=== PATIENT | male | born 1940 | race Caucasian/White ===

== ENCOUNTER 2017-06-25 11:58 | Outpatient (CLI) | payer MEDICARE ==
--- NOTE | 2017-06-25 17:04 | CT ---
CT ANGIOGRAM ABDOMEN WITH AND WITHOUT IV CONTRAST AND 3D RECONSTRUCTIONS: Date: 06-25-17 History: Follow up abdominal aortic aneurysm. Comparison: None available. FINDINGS: Vascular calcifications are seen in the visualized coronary arteries with evidence of prior CABG. Vas cular calcifications also seen in the abdominal aorta and involving the iliac arteries. There is an i nfrarenal abdominal aortic aneurysm with greatest axial dimensions of 6.5 cm AP and 5.7 cm transverse . The craniocaudal dimensions of the aneurysm is approximately 6.4 cm. There is essentric plaque with in the aneurysm. The aneurysm extends to just above the level of the aortic bifurcation and does not involving the iliac arteries. There is no evidence of an aortic dissection. There are two patent right renal arteries with single patent left renal artery. The celiac and superi or mesenteric arteries are patent with very mild narrowing at the origin of the celiac artery related to an essentric atherosclerotic calcification. There is bibasilar atelectasis. The liver, spleen, pancreas, bilateral adrenal glands and kidneys demonstrate a normal CT appearance for arterial phase of imaging. No periaortic fluid collection is seen. Degenerative changes are noted in the spine. IMPRESSION: Infrarenal abdominal aortic aneurysm with maximal AP dimension of 6.5 cm. This aneurysm extends to th e distal infrarenal abdominal aorta but does not involve the iliac arteries. Diameter of the abdomina l aorta at the level of the renal arteries is 2.8 cm. POS: CECIL
[2017-06-25] MEDS ORDERED: ISOVUE-370 76%-LOCM 1 ML ONE (17:21)
== END 2017-06-25 11:59 | disposition home or self-care (01) ==
LOC: CT 11:58
PROVIDERS: ATTEND Internal Medicine Cardiovascular Disease
DX: I71.4 Abdominal aortic aneurysm, without rupture (principal)
CPT/HCPCS: 74175

== ENCOUNTER 2017-08-14 08:48 | Day surgery (SDC) | payer MEDICARE ==
[2017-08-10 14:46] VITALS: BMI 34.0
[2017-08-14] MEDS ORDERED: Midazolam HCl 2 mg/2 ml Vial ONE (11:19)
[2017-08-14] MEDS ORDERED: Fentanyl 100 MCG/2 ML VIAL ONE (11:19)
[2017-08-14] MEDS ORDERED: Iopamidol 370 76% 100 ML VIAL ONE (11:55)
[2017-08-14] MEDS ORDERED: Iopamidol 370 76% 50 ML VIAL FS ONE (11:55)
--- NOTE | 2017-08-14 13:04 | OP ---
DATE OF PROCEDURE: 08/14/2017 PREOPERATIVE DIAGNOSIS: Abdominal aortic aneurysm with 2 large accessory renal emanating from the giuliano dy of the aneurysm. POSTOPERATIVE DIAGNOSIS: Abdominal aortic aneurysm with 2 large accessory renal emanating from the b manoj of the aneurysm. PROCEDURES: 1. Abdominal aortogram. 2. Selective superior left accessory renal artery angiogram. 3. Selective inferior left renal artery angiogram. 4. Embolization of the left superior renal artery with 4 x 8 interlock coils x2. 5. Selective embolization of the left inferior renal artery with 5 x 80 interlock coils x2. 5. ProGlide closure. 6. Ultrasound guided arterial access. TOTAL CONTRAST: 101 mL FLUORO TIME: 29.8 minutes. ANESTHESIA: 1 mg of Versed and 25 mcg of fentanyl for IV sedation. DESCRIPTION OF PROCEDURE: After operative consent was obtained, the patient was brought to the veterinary laboratory technician and placed in supine position on the veterinary laboratory technician table. Appropriate anesthetic monitor was placed. IV sedation was begun. The right groin was prepped and draped in the usual sterile fashion. Using ultrasound guidance, the area over the femoral artery was anesthetized with 1% lidocaine. Percutaneo us access to the common femoral artery was obtained using ultrasound guidance. A 5 [place]orese sheath was placed. The pigtail catheter was placed in the abdominal aorta. Multiple plane views of the abdomi nal aorta were performed using both hand injected technique and a power injector. Once the two acces efrain renal arteries were localized and an appropriate angled view of the x-ray had obtained, the pigt ail catheter was removed over an angled Glidewire. A COSTA catheter was then used to cannulate the chaves perior accessory renal artery. The Glidewire past into the renal artery. The COSTA catheter was exch anged for a Jewett catheter. Hand injected arteriogram was performed through the Jewett and confir anibal the intraluminal location. A renegade microcatheter was then passed into the Jewett catheter a nd through that two 4 x 80 interlock coils were placed. Hand injected arteriogram performed good pos itioning. The angled Glidewire was then replaced. The COSTA catheter was then used to cannulate the inferior accessory renal artery. Similarly, the similar to the superior accessory renal, the angled Glidewire was passed deep into the accessory renal artery. Jewett catheter was then placed and hand injected arteriogram performed confirming intraluminal location. Microcatheter was then placed and through the microcatheter two 5 x 80 interlock coils were placed. Followup aortogram showed good pos itioning of both the coils with the superior accessory renal already being thrombosed. The Bentson g uidewire was then replaced and ProGlide was deployed and good hemostasis. The patient was transferre d to the recovery room, will be kept for two hours prior to being discharged home today. The aneurys m will need to be repaired in the near future.
== END 2017-08-14 16:15 | disposition home or self-care (01) ==
LOC: SDC 08:48
PROVIDERS: ATTEND Thoracic Surgery (Cardiothoracic Vascular Surgery)
DX: I71.4 Abdominal aortic aneurysm, without rupture (principal); I25.10 Atherosclerotic heart disease of native coronary artery without angina pectoris; I10 Essential (primary) hypertension; E78.2 Mixed hyperlipidemia; K21.9 Gastro-esophageal reflux disease without esophagitis; Z88.8 Allergy status to other drugs, medicaments and biological substances; Z95.1 Presence of aortocoronary bypass graft; Z82.0 Family history of epilepsy and other diseases of the nervous system; Z82.49 Family history of ischemic heart disease and other diseases of the circulatory system
CPT/HCPCS: 37242; C1725; C1760; C1769 ×2; 61626; J1644; J2250; J3010

== ENCOUNTER 2017-08-30 05:47 | Inpatient (IN) | payer MEDICARE ==
[2017-08-29 10:28] VITALS: BMI 34.0
[2017-08-30] MEDS ORDERED: Midazolam HCl 2 mg/2 ml Vial ONE ×2 (06:25→07:12)
[2017-08-30] MEDS ORDERED: Fentanyl 100 MCG/2 ML VIAL ONE (06:25)
[2017-08-30] MEDS ORDERED: Protamine Sulfate 50 MG/5 ML VIAL ONE ×2 (06:39→09:13)
[2017-08-30] MEDS ORDERED: Heparin 10,000 UNITS/1 ML VIAL ONE (06:39)
[2017-08-30 06:58] LABS: Hemoglobin 12.6 g/dL (14.0-18.0); Mean Corpuscular HGB CONC 34.2 g/dL (32.0-36.0); Mean Corpuscular Hemoglobin 32.6 pg (27.0-31.0); Mean Corpuscular Volume 95.5 fl (80.0-94.0); Mean Platelet Volume 6.9 fL (7.4-10.4); Platelet Count 205 thou/uL (130-400); RBC Distribution Width 12.3 % (11.5-14.5); Red Blood Cell (RBC) Count 3.87 mill/uL (4.70-6.10)
[2017-08-30] MEDS ORDERED: CEFAZOLIN/Water 2 GM/20 ML SYRINGE ONE (07:29)
[2017-08-30 07:32] LABS: Anion Gap 11 mmol/L (10-20); BUN (Urea Nitrogen) 26 mg/dL (8.4-25.7); Calc. Creatinine Clearance 121 mL/min (70-130); Calcium 8.9 mg/dL (7.8-10.44); Carbon Dioxide 27 mmol/L (23-31); Chloride 108 mmol/L (98-107); Estimated GFR-MDRD 85; Glucose 124 mg/dL (83-110); Potassium 3.7 mmol/L (3.5-5.1); Sodium 142 mmol/L (136-145)
[2017-08-30] MEDS ORDERED: Morphine Sulfate 2 MG/ML SYRINGE SLOW IVP PRN (08:47)
[2017-08-30] MEDS ORDERED: Promethazine HCl 25 MG/ML VIAL SLOW IVP PRN (08:47)
--- NOTE | 2017-08-30 11:17 | OP ---
DATE OF PROCEDURE: 08/30/2017 PREOPERATIVE DIAGNOSIS: Abdominal aortic aneurysm. POSTOPERATIVE DIAGNOSIS: Abdominal aortic aneurysm. PROCEDURE: 1. Preclose technique using bilateral crossed Proglides x2. 2. Ultrasound guided percutaneous access. 3. Endovascular aneurysm repair with Medtronic Endurant II system 32 x 16 x 166 bifurcation graft through the left groin 16 x 16 x 93 right iliac extension 16 x 16 x 82 right iliac extension SURGEON: Dr. Demian Mejia and Dr. Clement Salomon ANESTHESIA: General endotracheal. ESTIMATED BLOOD LOSS: Less than 100 mL. TOTAL CONTRAST: 90 mL. TOTAL FLUOROSCOPY TIME: 11 minutes 25 seconds. DESCRIPTION OF PROCEDURE: After operative consent was obtained, the patient was brought to the operating room and placed in the supine position on the operating room table. Appropriate anesthetic monitor was placed and general endotracheal anesthesia induced. Groins were prepped and draped in usual sterile fashion. Using ultrasound guidance, percutaneous access to the common femoral arteries was obtained. A 5 Malian sheath was placed over a Bentson wire. A crossed ProGlide closure sutures were then placed and clamped bilaterally. The patient was given 7500 units of heparin followed by 2500 units later in the case to maintain an ACT of over 230. On the left, the Bentson guidewire was exchanged for a Lunderquist guidewire. On the right, the Bentson guidewire was exchanged for a Lunderquist guidewire and a 12-Malian sheath placed in the aneurysm itself. The Contra catheter was then placed in the upper abdominal aorta. Aortogram was performed illuminating the aorta and renals. Our graft was selected, which was a 32 x 16 x 166. This was loaded on the left side of the Lunderquist graft, taken up to the level of the renal arteries and deployment begun. A second magnified aortogram was performed illuminating the renal arteries. The graft was positioned appropriately just at the renal bifurcation and deployed down to the short gate. The Contra catheter was withdrawn back into the sheath and the sheath brought back underneath the short gate. Contra catheter and Lunderquist wire were used to cannulate the short gate. Lunderquist was brought up into the upper abdominal aorta. The Contra catheter was brought into the graft itself and twirled. It twirled freely. Contra catheter was then used to measure with hand injected right iliac angiogram. The iliac bifurcation was noted and marked. A 16 x 16 x 93 extension graft was selected and deployed in the right iliac. This ended up approximately 2 cm short of our bandar and we extended it with a second 16 x 16 graft. Reliant balloons were used to fully deploy the graft for its full length. Aortogram was again performed showing no evidence of type 1 endoleak. The graft material itself was intact. There was late type 2 endoleak from lumbar arteries. The previously embolized accessory renals were thrombosed. Lunderquist guidewires were exchanged for Bentson guidewires. Sheaths were removed and Proglides deployed with good hemostasis. Heparin was reversed with 75 mg of Protamine. Dermabond was applied to the skin and the patient was awakened, extubated, and transferred to recovery room in stable condition. FABIENNE
[2017-08-30] MEDS ORDERED: HYDROcodone/Acetaminophen 5/325 mg Tablet PO PRN ×2 (12:33)
[2017-08-30] MEDS ORDERED: Ondansetron HCl/PF 4 MG/2 ML Vial IVP PRN (12:33)
[2017-08-30] MEDS ORDERED: Amlodipine 10 MG TAB PO SCH ×2 (12:33→21:00)
[2017-08-30] MEDS ORDERED: Carvedilol 6.25 MG TAB PO SCH ×2 (12:33→21:00)
[2017-08-30] MEDS ORDERED: Promethazine HCl 25 MG/ML VIAL IM PRN (12:33)
[2017-08-30] MEDS ORDERED: Fentanyl 100 MCG/2 ML VIAL SLOW IVP PRN ×2 (12:33)
[2017-08-30] MEDS ORDERED: hydrALAZINE 20 MG/ML VIAL SLOW IVP PRN (12:33)
[2017-08-30] MEDS ORDERED: Acetaminophen 325 MG TAB PO PRN (12:33)
[2017-08-30] MEDS ORDERED: Phenylephrine 10 MG/NS 250 ML 250 ML IVPB PRN (12:33)
[2017-08-30] MEDS: Sodium Chloride 0.9% 1,000 ML IV SCH ×2 (12:45→21:51)
[2017-08-30] MEDS ORDERED: Dexamethasone 20 MG/5 ML VIAL ONE (15:10)
[2017-08-30] MEDS ORDERED: Ondansetron HCl/PF 4 MG/2 ML Vial ONE (15:10)
[2017-08-30] MEDS ORDERED: Glycopyrrolate 0.2 MG/ML 5 ML SYRINGE ONE (15:10)
[2017-08-30] MEDS ORDERED: Propofol 200 MG/20 ML VIAL ONE (15:10)
[2017-08-30] MEDS ORDERED: Lidocaine 1% PF 5 ML VIAL ONE (15:10)
[2017-08-30] MEDS ORDERED: Heparin 10,000 UNITS/ 10 ML VIAL ONE (15:10)
[2017-08-30] MEDS ORDERED: Protamine Sulfate 250 MG/25 ML VIAL ONE (15:10)
[2017-08-30] MEDS ORDERED: ePHEDrine/0.9% NaCl/PF SYRINGE 50 mg/10 ml ONE (15:10)
[2017-08-30] MEDS: CEFAZOLIN/Water 2 GM/20 ML SYRINGE SLOW IVP SCH ×2 (15:29→23:55)
[2017-08-30] MEDS ORDERED: Atorvastatin Calcium 40 MG TAB PO SCH (21:00)
[2017-08-30] MEDS ORDERED: Ubidecarenone 50 MG CAP PO SCH (21:00)
[2017-08-30] MEDS: Fish Oil 1,000 MG CAP PO SCH (21:19)
[2017-08-30] MEDS: Folic Acid 1 MG TAB PO SCH (21:20)
[2017-08-30] MEDS: Lisinopril 20 MG TAB PO SCH (21:20)
[2017-08-30 21:21] VITALS: BP 138/63
[2017-08-31 05:57] LABS: #Lymphocytes 0.9 thou/uL (1.20-3.40); #Monocytes 0.7 thou/uL (0.11-0.59); #Neutrophils 10.3 thou/uL (1.40-6.50); %Basophils 0.1 % (0.0-1.0); %Eosinophils 0.3 % (0.0-10.0); %Lymphocytes 7.8 % (21.0-51.0); %Monocytes 5.7 % (0.0-10.0); %Neutrophils 86.1 % (42.0-75.0); Hemoglobin 12.2 g/dL (14.0-18.0); Mean Corpuscular HGB CONC 33.6 g/dL (32.0-36.0); Mean Corpuscular Hemoglobin 31.8 pg (27.0-31.0); Mean Corpuscular Volume 94.6 fl (80.0-94.0); Mean Platelet Volume 7.1 fL (7.4-10.4); Platelet Count 176 thou/uL (130-400); RBC Distribution Width 12.1 % (11.5-14.5); Red Blood Cell (RBC) Count 3.84 mill/uL (4.70-6.10); White Blood Cell (WBC) Count 11.9 thou/uL (4.8-10.8)
[2017-08-31 06:29] LABS: Anion Gap 12 mmol/L (10-20); BUN (Urea Nitrogen) 18 mg/dL (8.4-25.7); Calc. Creatinine Clearance 137 mL/min (70-130); Carbon Dioxide 23 mmol/L (23-31); Chloride 106 mmol/L (98-107); Estimated GFR-MDRD Greater than 90; Glucose 140 mg/dL (83-110); Potassium 3.9 mmol/L (3.5-5.1); Sodium 137 mmol/L (136-145)
--- NOTE | 2017-08-31 07:00 | DIS ---
DATE OF ADMISSION: 08/30/2017 DATE OF DISCHARGE: 08/31/2017 DIAGNOSIS: Abdominal aortic aneurysm. PROCEDURE: Endovascular repair of abdominal aortic aneurysm. DESCRIPTION OF HOSPITAL STAY: Mr. Whitmore underwent elective repair of his aneurysm. He has done w ell and is being discharged to home to follow up with me in 2 weeks. DISCHARGE MEDICATIONS: Unchanged.
[2017-08-31 07:43] VITALS: TEMP 97.9
[2017-08-31] MEDS: Folic Acid 1 MG TAB PO SCH (07:50)
[2017-08-31] MEDS: Fish Oil 1,000 MG CAP PO SCH (07:50)
[2017-08-31] MEDS: Lisinopril 20 MG TAB PO SCH (07:50)
[2017-08-31] MEDS: CEFAZOLIN/Water 2 GM/20 ML SYRINGE SLOW IVP SCH (07:51)
[2017-08-31] MEDS ORDERED: Aspirin 81 mg Enteric Coated Tablet PO SCH (09:00)
[2017-08-31] MEDS ORDERED: Furosemide 40 MG TAB PO SCH (09:00)
[2017-08-31] MEDS ORDERED: Amlodipine 5 MG TAB PO SCH (09:00)
[2017-08-31] MEDS ORDERED: Carvedilol 6.25 MG TAB PO SCH (09:00)
== END 2017-08-31 10:38 | disposition home or self-care (01) | DRG 269 ==
LOC: SURG A 05:47 → CCU 12:00
PROVIDERS: ADMIT Thoracic Surgery (Cardiothoracic Vascular Surgery); ATTEND Thoracic Surgery (Cardiothoracic Vascular Surgery)
PROC: 04V03D6 (ICD-10-PCS; principal; 2017-08-30)
DX: I71.4 Abdominal aortic aneurysm, without rupture (principal); E78.00 Pure hypercholesterolemia, unspecified; I10 Essential (primary) hypertension; K21.9 Gastro-esophageal reflux disease without esophagitis; Z95.1 Presence of aortocoronary bypass graft; I25.10 Atherosclerotic heart disease of native coronary artery without angina pectoris
CPT/HCPCS: 36415; 76001; 80048; 85025; 85027; 86850; 86870; 86900; 86901; 86922; C1726; C1760; C1769; C1894; J0360; J1100; J1642; J1644; J2001; J2250; J2405; J2704; J2720; J3010

== ENCOUNTER 2017-09-23 12:00 | Inpatient (IN) | payer MEDICARE ==
[2017-09-23 13:39] LABS: #Eosinphils 0.4 thou/uL (0.0-0.7); #Lymphocytes 1.7 thou/uL (1.20-3.40); #Monocytes 0.7 thou/uL (0.11-0.59); %Basophils 0.7 % (0.0-1.0); %Lymphocytes 24.5 % (21.0-51.0); %Monocytes 10.1 % (0.0-10.0); %Neutrophils 58.7 % (42.0-75.0); Hemoglobin 13.8 g/dL (14.0-18.0); Mean Corpuscular HGB CONC 34.8 g/dL (32.0-36.0); Mean Corpuscular Hemoglobin 32.4 pg (27.0-31.0); Mean Corpuscular Volume 93.1 fl (80.0-94.0); Mean Platelet Volume 7.2 fL (7.4-10.4); Platelet Count 205 thou/uL (130-400); RBC Distribution Width 12.4 % (11.5-14.5); Red Blood Cell (RBC) Count 4.27 mill/uL (4.70-6.10); White Blood Cell (WBC) Count 6.8 thou/uL (4.8-10.8)
[2017-09-23 14:01] LABS: ALT (SGPT) 15 U/L (8-55); AST (SGOT) 15 U/L (5-34); Albumin 3.9 g/dL (3.4-4.8); Alkaline Phosphatase 95 U/L (40-150); Anion Gap 12 mmol/L (10-20); BUN (Urea Nitrogen) 29 mg/dL (8.4-25.7); Calc. Creatinine Clearance 0 mL/min (70-130); Calcium 8.9 mg/dL (7.8-10.44); Carbon Dioxide 26 mmol/L (23-31); Chloride 98 mmol/L (98-107); Estimated GFR-MDRD 80; Globulin 2.5 g/dL (2.4-3.5); Glucose 127 mg/dL (83-110); Potassium 3.7 mmol/L (3.5-5.1); Protein, Total 6.4 g/dL (5.8-8.1); Sodium 132 mmol/L (136-145)
[2017-09-23 14:04] LABS: Troponin I 0.377 ng/mL (< 0.028)
--- NOTE | 2017-09-23 14:17 | RAD ---
PORTABLE CHEST: Date: 09/23/17 PROVIDED CLINICAL HISTORY: Atrial flutter. Dyspnea. FINDINGS: No comparisons. Cardiac silhouette appears enlarged, which may be at least partially on the basis of portable techniq ue. Median sternotomy changes are seen. No focal consolidation, pleural fluid, or pneumothorax appare nt. IMPRESSION: No evidence for an acute cardiopulmonary process. POS: [facility]
[2017-09-23] MEDS ORDERED: Carvedilol 6.25 MG TAB PO SCH ×2 (16:15→21:00)
[2017-09-23] MEDS ORDERED: Amlodipine 10 MG TAB PO SCH (16:15)
[2017-09-23] MEDS ORDERED: Acetaminophen 325 MG TAB PO PRN (17:04)
[2017-09-23] MEDS ORDERED: Ondansetron ODT 4 MG TAB PO PRN (17:04)
[2017-09-23 17:27] VITALS: BMI 34.4
--- NOTE | 2017-09-23 17:33 | PDOC.FPRHP ---
- History of Present Illness Chief Complaint: palpitations History of Present Illness: Patient comes in after noticing his HR was elevated last night and then had not resolved this morning. He has pertinent history of 2 CABG procedure (latest 16 years ago), Triple AAA repair 08/30/17, HTN, and LUÍS. Patient denies any chest pain. He states he was feeling weak 3 days ago so he held his lasix since that time. He denies SOB or cough. ED Course: CXR shows cardiomegaly, CT-PE protocol shows no PE trop 0.15 -> .37 Patient recieved 2 doses of adenosine at outside ED, had not converted, upon presentation to this ED patient was tachycardic but then spontaneously converted to rhythm in the 70s - Allergies/Adverse Reactions Allergies Allergy/AdvReac Type Severity Reaction Status Date / Time hydrochlorothiazide Allergy Verified 08/30/17 07:00 - Home Medications Medication Instructions Recorded Confirmed Type Amlodipine [Norvasc] 10 mg PO QPM 08/10/17 09/23/17 History Ascorbic Acid [Vitamin C] 500 mg PO BID 08/10/17 09/23/17 History Aspirin [Aspirin EC] 81 mg PO QAM 08/10/17 09/23/17 History Atorvastatin Calcium [Lipitor] 1 tab PO QPM 08/10/17 09/23/17 History Carvedilol [Coreg] 1 tab PO QAM 08/10/17 09/23/17 History Cetirizine HCl [Zyrtec] 10 mg PO QAM 08/10/17 09/23/17 History Cholecalciferol (Vitamin D3) 1,000 unit PO BID 08/10/17 09/23/17 History [Vitamin D] Clopidogrel Bisulfate [Clopidogrel] 75 mg PO QPM 08/10/17 09/23/17 History Fish Oil/Borage/Flax/Om3,6,9 1 3 cap PO BID 08/10/17 09/23/17 History [[place] 3-6-9 1,200 mg Softgel] Folic Acid 0.8 mg PO BID 08/10/17 09/23/17 History Furosemide 40 mg PO QAM 08/10/17 09/23/17 History Isosorbide Mononitrate [Imdur ER] 30 mg PO QAM 08/10/17 09/23/17 History Lisinopril 20 mg PO BID 08/10/17 09/23/17 History Naproxen Sodium [Aleve] 220 mg PO BID 08/10/17 09/23/17 History Ubidecarenone [Co Q-10] 100 mg PO QPM 08/10/17 09/23/17 History Amlodipine [Norvasc] 5 mg PO QAM 09/23/17 09/23/17 History Carvedilol [Coreg] 2 tab PO QPM 09/23/17 09/23/17 History Docusate [Colace] 2 cap PO DAILY PRN 09/23/17 09/23/17 History Fluticasone Propionate [Flonase 2 spray EA NARE DAILY 09/23/17 09/23/17 History Nasal Angie] - History PMHx: HTN, CAD, CABG x 2 (latest 16 yrs ago), LUÍS PSHx: AAA repair 08/30/17 FHx: mother bypass Social: chewing tobacco 40 years, no alcohol, no drugs - Review of Systems General: denies: fever/chills, night sweats Eyes: denies: eye pain, vision changes ENT: denies: nasal congestion, rhinorrhea Respiratory: denies: cough, shortness of breath Cardiovascular: reports: palpitation, edema. denies: chest pain Gastrointestinal: denies: nausea, vomiting, diarrhea Genitourinary: denies: dysuria, polyuria Skin: denies: rashes, itching Musculoskeletal: denies: pain, tenderness Neurological: denies: numbness, weakness Psychological: denies: anxiety, depression - Vital signs BP: [111/81] HR: [122 on presentation, 73 on admit] RR: [12] Tmax: [97.5] Pox: [95]% on [ra] Wt: [121kg] - Physical Exam Constitutional: NAD, awake, alert and oriented HEENT: normocephalic and atraumatic, PERRLA, MMM Neck: supple, FROM Heart: normal S1/S2 -Heart: irregularly irregular rhythm, 2/6 systolic murmur Lungs: good air movement -Lungs: no distress, mild decreased breath sounds at the bases Abdomen: soft, non-tender, bowel sounds present Musculoskeletal: normal structure, ROM grossly normal Neurological: no focal deficit, normal sensation Skin: no rash/lesions, capillary refill <2 seconds Heme/Lymphatic: no unusual bruising or bleeding Psychiatric: normal mood and affect, good judgment and insight FMR H&P: Results - Labs Result Diagrams: 09/23/17 13:23 09/23/17 13:23 Lab results: WBC 6.8 thou/uL (4.8-10.8) 09/23/17 13:23 Hgb 13.8 g/dL (14.0-18.0) L 09/23/17 13:23 Hct 39.7 % (42.0-52.0) L 09/23/17 13:23 MCV 93.1 fl (80.0-94.0) 09/23/17 13:23 Plt Count 205 thou/uL (130-400) 09/23/17 13:23 Neutrophils % 58.7 % (42.0-75.0) 09/23/17 13:23 Sodium 132 mmol/L (136-145) L 09/23/17 13:23 Potassium 3.7 mmol/L (3.5-5.1) 09/23/17 13:23 Chloride 98 mmol/L (98-107) 09/23/17 13:23 Carbon Dioxide 26 mmol/L (23-31) 09/23/17 13:23 BUN 29 mg/dL (8.4-25.7) H 09/23/17 13:23 Creatinine 0.92 mg/dL (0.6-1.3) 09/23/17 13:23 Glucose 127 mg/dL (83-110) H 09/23/17 13:23 Calcium 8.9 mg/dL (7.8-10.44) 09/23/17 13:23 Total Bilirubin 1.0 mg/dL (0.2-1.2) 09/23/17 13:23 AST 15 U/L (5-34) 09/23/17 13:23 ALT 15 U/L (8-55) 09/23/17 13:23 Alkaline Phosphatase 95 U/L (40-150) 09/23/17 13:23 B-Natriuretic Peptide 164.4 pg/mL (0-100) H 09/23/17 13:23 Serum Total Protein 6.4 g/dL (5.8-8.1) 09/23/17 13:23 Albumin 3.9 g/dL (3.4-4.8) 09/23/17 13:23 - EKG Interpretation EKG: EKG is abnormal. Shows A fib. EKG was discussed with Dr. Cazares. FMR H&P: A/P - Problem List (1) Elevated troponin Current Visit: Yes Status: Acute Code(s): R74.8 - ABNORMAL LEVELS OF OTHER SERUM ENZYMES (2) HTN (hypertension) Current Visit: Yes Status: Acute Code(s): I10 - ESSENTIAL (PRIMARY) HYPERTENSION (3) AAA (abdominal aortic aneurysm) Current Visit: Yes Status: Acute Code(s): I71.4 - ABDOMINAL AORTIC ANEURYSM , WITHOUT RUPTURE (4) LUÍS (obstructive sleep apnea) Current Visit: Yes Status: Acute Code(s): G47.33 - OBSTRUCTIVE SLEEP APNEA ( ADULT) (PEDIATRIC) (5) Tachycardia Current Visit: Yes Status: Acute Code(s): R00.0 - TACHYCARDIA, UNSPECIFIED (6) Abnormal EKG Current Visit: Yes Status: Acute Code(s): R94.31 - ABNORMAL ELECTROCARDIOGRAM [ECG] [EKG] - Plan # Tachycardia - 2 doses Adenosine OSH - rate in 70s on admit - Tele - carvedilol 6.125 - Dr. Cazares consulted, recs appreciated - consider stress test, echo in the AM # Elevated troponin - 0.15 -> 0.38 - trend - CTA neg for PE at OSH # HTN - home meds # HLD - high intesity statin # recent AAA repair - cautious with anticoagulation # LUÍS - cpap at night #PPx - lovenox, scds # Code - full FMR H&P: Upper Level - Pertinent history 77yo CM with pmhx CAD s/p 4v CABG x 2, AAA w/o rupture s/p repair 1 mo prior, HTN, HLD & Atherosclerosis who presents with 12+ hr history of palpitations & heart racing. Pt was at granddaughter's wedding last night, got back to hotel and felt heart beating fast, checked pulse and found to be 117. Went to bed and woke up in the morning with persistent symptoms and went to [facility] [place] ED. Found to be in Aflutter to rate 120s, given adenosine x 2 and IVF without conversion; however upon arrival to ED at [facility] converted to rate controlled Afib spontaneously (rate in 70s). Pt has h/o paroxysmal Afib in 2013 after ankle surgery, otherwise no recent Afib. Does endorse mild SOB with palpitations, but have since resolved. Endorses medication compliance and otherwise no symptoms. Cards- Dr. Thomas CV Surg- Dr. Salomon - Pertinent findings PE-resting comfortably with NAD irregularly irregular rhythm (rate in 70s), distant heart sounds with 2/6 SRINIVASA. Lungs mostly clear aside from faint crackles in left lung base. Trace LE edema (improved from baseline per family) Labs- trop in [place]- 0.17 --> 0.377 here BNP 114 Tele- irregularly irregular rhythm with rate 71 CXR- cardiomegaly, with blunted costophrenic angles. post-sternotomy changes noted. CTA in [place] neg - Plan Date/Time: 09/23/17 1730 77 yo CM with AAA s/p Repair, CAD s/p CABG x 2, HTN, HLD p/w-- 1) New onset Aflutter- resolved, now afib with rate in 70s, however abn EKG with concerns for possible delta wave in precordial leads. consulted Dr. Cazares to acutely see pt. NAD and stable currently. Therapeutic lovenox for anticoagulation and monitor on tele. Continue home meds and will discuss tx with cards. Order echo. Trend CE's, check TSH & Mag. H/o recent stress per pt, therefore call Dr. Thomas office in AM for results. 2) CAD s/p CABG- maximize med therapy, consult cards for stress vs cath. 3) HTN- stable, home meds 4) HLD- cont high intensity statin 5) AAA s/p repair- inform CV surgery of pts inpt status. I, [Kemi Bartholomew], have evaluated this patient and agree with findings/plan as outlined by intern product marketing manager resident. Pertinent changes/additions are listed here. Attending Addendum - Attending Addendum Date/Time: 09/23/172032 I personally evaluated the patient and discussed the management with Dr. Lynn and Puma. I agree with the History, Examination, Assessment and Plan documented above with any addition or exceptions noted below. LBBB, unable to compare to any previous. Rising troponins. Chest pain free. Await cardiology recommendations. Maximize medical therapy.
[2017-09-23] MEDS ORDERED: Enoxaparin Sodium 120 MG/0.8 ML SYRINGE SC SCH (17:45)
[2017-09-23 18:20] LABS: CKMB 11.6 ng/mL (0-6.6); Troponin I 0.603 ng/mL (< 0.028)
[2017-09-23 21:34] LABS: CKMB 9.2 ng/mL (0-6.6); Troponin I 0.671 ng/mL (< 0.028)
--- NOTE | 2017-09-23 21:36 | CON ---
DATE OF CONSULTATION: 09/23/2017 REASON FOR CONSULTATION: Atrial fibrillation. HISTORY OF PRESENT ILLNESS: Mr. Whitmore is a very pleasant 77-year-old gentleman, who is a patient of Dr. Samuel Thomas. He recently presented with palpitations. He states he was in normal state of heal th. When his monitor noticed, his heart rate was in the 120s. He did have associated palpitations. No chest pain, pressure, or other associated symptoms. He was seen and evaluated in the emergency r oom where he was found to be in atrial fibrillation. Upon my evaluation, he was back in sinus rhythm . PAST MEDICAL AND SURGICAL HISTORY: Hypertension, CAD, status post bypass surgery, recent aortic aneu rysm repair percutaneously. CURRENT HOME MEDICATIONS: Amlodipine, aspirin, carvedilol, fish oil, folic acid, Lasix, isosorbide, atorvastatin, lisinopril and Plavix. REVIEW OF SYSTEMS: Ten-point review of systems is reviewed and as above, otherwise negative. PHYSICAL EXAMINATION: GENERAL: Patient is a pleasant male who is in no acute distress. The patient appears his stated age . VITAL SIGNS: Blood pressure 146/85, pulse 74 and temperature 97.8. NEUROLOGIC: The patient is alert and oriented x3 with no focal neurologic deficits. HEENT: Sclerae without icterus. Mouth has moist mucous membranes with normal pallor. NECK: No JVD. Carotid upstroke brisk. No bruits bilaterally. LUNGS: Clear to auscultation with unlabored respirations. BACK: No scoliosis or kyphosis. CARDIAC: Regular rate and rhythm with normal S1 and S2. No S3 or S4 noted. No significant rubs, mu rmurs, thrills, or gallops noted throughout the precordium. PMI is not displaced. There is no cecille ternal heave. ABDOMEN: Soft, nontender, nondistended. No peritoneal signs present. No hepatosplenomegaly. No ab normal striae. EXTREMITIES: 2+ femoral and 2+ dorsalis pedis pulses. No cyanosis, clubbing, or edema. SKIN: No gross abnormalities. PERTINENT LABORATORY DATA: Hemoglobin 13.8. BNP 164 and troponin 0.3. IMPRESSION: 1. Atrial fibrillation. 2. Status post percutaneous endovascular repair of abdominal aortic aneurysm. 3. Coronary artery disease. 4. Status post bypass surgery. 5. Elevated troponin. RECOMMENDATIONS: Mr. Whitmore had no current symptoms suggesting angina. He did undergo abdominal a ortic aneurysm recently. He has converted back to sinus rhythm. At this point, would recommend Mult aq. His last echo dated 2015 suggested LVEF of 50% to 55%. Would recommend repeating his echo. Enma quiñonez, I have no recommendations.
[2017-09-23] MEDS: Apixaban 5 MG TAB PO SCH (21:40)
[2017-09-23] MEDS: Atorvastatin Calcium 40 MG TAB PO SCH (21:41)
[2017-09-23] MEDS: Amlodipine 10 MG TAB PO SCH (21:41)
[2017-09-24 04:12] LABS: #Basophils 0.1 thou/uL (0.0-0.2); #Eosinphils 0.4 thou/uL (0.0-0.7); #Lymphocytes 1.8 thou/uL (1.20-3.40); #Monocytes 0.8 thou/uL (0.11-0.59); #Neutrophils 4.3 thou/uL (1.40-6.50); %Basophils 0.8 % (0.0-1.0); %Eosinophils 5.7 % (0.0-10.0); %Lymphocytes 24.5 % (21.0-51.0); %Monocytes 10.2 % (0.0-10.0); %Neutrophils 58.8 % (42.0-75.0); Hemoglobin 13.2 g/dL (14.0-18.0); Mean Corpuscular HGB CONC 34.7 g/dL (32.0-36.0); Mean Corpuscular Hemoglobin 31.4 pg (27.0-31.0); Mean Corpuscular Volume 90.6 fl (80.0-94.0); Mean Platelet Volume 7.1 fL (7.4-10.4); Platelet Count 207 thou/uL (130-400); RBC Distribution Width 12.3 % (11.5-14.5); White Blood Cell (WBC) Count 7.4 thou/uL (4.8-10.8)
[2017-09-24 04:28] LABS: Anion Gap 12 mmol/L (10-20); BUN (Urea Nitrogen) 25 mg/dL (8.4-25.7); Calc. Creatinine Clearance 118 mL/min (70-130); Calcium 9.3 mg/dL (7.8-10.44); Carbon Dioxide 29 mmol/L (23-31); Chloride 95 mmol/L (98-107); Estimated GFR-MDRD 82; Glucose 125 mg/dL (83-110); Potassium 3.8 mmol/L (3.5-5.1); Sodium 132 mmol/L (136-145)
[2017-09-24 04:36] LABS: CKMB 8.3 ng/mL (0-6.6); Troponin I 0.785 ng/mL (< 0.028)
[2017-09-24 07:38] LABS: CKMB 6.5 ng/mL (0-6.6)
[2017-09-24 07:40] LABS: Troponin I 0.616 ng/mL (< 0.028)
[2017-09-24] MEDS: Aspirin 81 mg Enteric Coated Tablet PO SCH (08:19)
[2017-09-24] MEDS: Lisinopril 20 MG TAB PO SCH ×2 (08:20→20:34)
[2017-09-24] MEDS: Furosemide 40 MG TAB PO SCH (08:20)
[2017-09-24] MEDS: Amlodipine 5 MG TAB PO SCH (08:20)
[2017-09-24] MEDS: Carvedilol 6.25 MG TAB PO SCH ×2 (08:20→16:43)
--- NOTE | 2017-09-24 08:50 | PDOC.FM ---
- Subjective Subjective: This morning the patient denies any chest pain, sob, or diaphoresis. He denies any episodes of palpitations overnight. There were no events noted on tele. Patient states he ate supper without any issues. - Objective Vital Signs & Weight: Vital Signs (12 hours) Temp Pulse Resp BP BP Pulse Ox 09/24/17 08:20 66 09/24/17 08:13 97.7 F 66 16 152/79 H 95 09/24/17 05:50 97.6 F 68 19 149/85 H 95 09/24/17 00:00 98.1 F 63 18 127/74 94 L 09/23/17 21:41 68 142/80 H 09/23/17 21:40 98.1 F 68 18 142/80 H 97 Weight Weight 121.472 kg I&O: 09/23/17 09/24/17 09/25/17 06:59 06:59 06:59 Intake Total 720 Output Total 900 Balance -180 Result Diagrams: 09/24/17 03:03 09/24/17 03:03 <Amos Lynn - Last Filed: 09/24/17 08:48> - Objective Vital Signs & Weight: Vital Signs (12 hours) Temp Pulse Resp BP Pulse Ox 09/24/17 08:20 66 09/24/17 08:13 97.7 F 66 16 152/79 H 95 09/24/17 05:50 97.6 F 68 19 149/85 H 95 09/24/17 00:00 98.1 F 63 18 127/74 94 L Weight Weight 121.472 kg I&O: 09/23/17 09/24/17 09/25/17 06:59 06:59 06:59 Intake Total 720 Output Total 900 Balance -180 Result Diagrams: 09/24/17 03:03 09/24/17 03:03 <Curt Lorenzo - Last Filed: 09/24/17 11:08> Phys Exam - Physical Examination Constitutional: NAD HEENT: PERRLA, moist MMs Neck: no nodes, no JVD Respiratory: no wheezing, clear to auscultation bilateral irregularly irregular rhythm, systolic murmur 2/6 Gastrointestinal: soft, non-tender, no distention, positive bowel sounds Musculoskeletal: no edema, pulses present Neurological: non-focal, moves all 4 limbs Lymphatic: no nodes Psychiatric: normal affect, A&O x 3 Skin: no rash, cap refill <2 seconds <Amos Lynn - Last Filed: 09/24/17 08:48> Dx/Plan (1) Elevated troponin Code(s): R74.8 - ABNORMAL LEVELS OF OTHER SERUM ENZYMES Status: Acute (2) HTN (hypertension) Code(s): I10 - ESSENTIAL (PRIMARY) HYPERTENSION Status: Acute (3) AAA (abdominal aortic aneurysm) Code(s): I71.4 - ABDOMINAL AORTIC ANEURYSM, WITHOUT RUPTURE Status: Acute (4) LUÍS (obstructive sleep apnea) Code(s): G47.33 - OBSTRUCTIVE SLEEP APNEA (ADULT) (PEDIATRIC) Status: Acute (5) Tachycardia Code(s): R00.0 - TACHYCARDIA, UNSPECIFIED Status: Acute (6) Abnormal EKG Code(s): R94.31 - ABNORMAL ELECTROCARDIOGRAM [ECG] [EKG] Status: Acute - Plan Plan: # Tachycardia - 2 doses Adenosine OSH - rate in 70s on admit - Tele shows no events overnight - TSH, Mag WNL - carvedilol 6.125 - ASA, eliquis, plavix - Dr. Cazares consulted, recs appreciated -recs maximal medical therapy - will await further recs # Elevated troponin - 0.15 -> 0.38 -> .603 -> .671 -> .785 -> .616 - CTA neg for PE at OSH # HTN - home meds - imdur, lasix, lisinopril # HLD - high intesity statin # recent AAA repair # LUÍS - cpap at night #PPx - lovenox, scds # Code - full <Amos Lynn - Last Filed: 09/24/17 08:48> Attending Addendum - Attending Addendum Date/Time: 09/24/17 1107 I personally evaluated the patient and discussed the management with Dr. Lynn I agree with the History, Examination, Assessment and Plan documented above with any addition or exceptions noted below.For stress testing tomorrow <Curt Lorenzo - Last Filed: 09/24/17 11:08>
[2017-09-24] MEDS ORDERED: Enoxaparin Sodium 120 MG/0.8 ML SYRINGE SC SCH ×3 (09:00→21:00)
[2017-09-24] MEDS: Apixaban 5 MG TAB PO SCH (10:38)
--- NOTE | 2017-09-24 10:42 | PQF ---
DATE: 09-24-17 ATTN: DR. ELVIRA BEAR Please exercise your independent, professional judgment in responding to the clarification form. Clinical indicators are provided on the bottom of this form for your review Please check appropriate box(s): [ x ] Demand Ischemia [ ] [place] (type: ) [ ] Other diagnosis [ ] Unable to determine In addition, please specify: Present on Admission (POA): [ ] Yes [ ] No [ ] Unable to determine CLINICAL INDICATORS - SIGNS / SYMPTOMS / LABS TROPONIN: 09-23-17: 0.377, 0.603, 0.671 09-24-17: 0.785, 0.616 H&P: ELEVATED TROPONIN CONSULT NOTE DR. GILLILAND 09-23-17: A FIB, CAD, S/P BYPASS SURGERY, ELEVATED TROPONIN RISKS: H&P: HTN, CAD, CABG X2, SMOKER, ELEVATED TROPONIN, ABN EKG, TACHYCARDIA, TREATMENTS: CARDIOLOGY CONSULT, CARDIAC MONITORING, ECHO (This form is maintained as a part of the permanent medical record) 2014 [employer]. All Rights Reserved [email or web address] Office: [phone] [facility]OS[facility]ITALEster
--- NOTE | 2017-09-24 10:42 | PRG ---
DATE OF SERVICE: 09/24/2017 SUBJECTIVE: Mr. Whitmore is doing well, no current complaints. No chest pain, pressure, shortness o f breath or associated symptoms. OBJECTIVE: VITAL SIGNS: Blood pressure 150/79, pulse 66, temperature 97. LUNGS: Clear to auscultation. CARDIAC: Regular rate and rhythm. ABDOMEN: Soft, nontender, nondistended. EXTREMITIES: No edema. PERTINENT LABORATORY DATA: Hemoglobin 13.2, creatinine 0.9. Peak troponin 0.785 with a CK-MB of 8.2 . IMPRESSION: 1. Atrial fibrillation. 2. Coronary artery disease. 3. Status post bypass surgery. 4. Status post percutaneous aortic aneurysm repair. 5. Elevated troponin. RECOMMENDATIONS: Mr. Whitmore's elevated troponin likely related to demand ischemia. He has not had any recent stress study performed. We would recommend a noninvasive stress study to assess for any areas of ischemia prior to discharge. We will discontinue Eliquis in place of Lovenox in case angiog rudy needs to be performed. We will also add Multaq.
[2017-09-24] MEDS: Amlodipine 10 MG TAB PO SCH (20:33)
[2017-09-24] MEDS: Atorvastatin Calcium 40 MG TAB PO SCH (20:33)
[2017-09-24] MEDS: Clopidogrel Bisulfate 75 MG TAB PO SCH (20:34)
[2017-09-24] MEDS ORDERED: Clopidogrel Bisulfate 75 MG TAB PO SCH (21:00)
[2017-09-25] MEDS: Lisinopril 20 MG TAB PO SCH ×2 (05:47→20:12)
[2017-09-25] MEDS: Amlodipine 5 MG TAB PO SCH (05:47)
[2017-09-25] MEDS: Aspirin 81 mg Enteric Coated Tablet PO SCH (05:48)
[2017-09-25] MEDS: Carvedilol 6.25 MG TAB PO SCH ×2 (05:48→16:00)
[2017-09-25] MEDS: Furosemide 40 MG TAB PO SCH (05:49)
--- NOTE | 2017-09-25 08:14 | PDOC.FM ---
- Subjective Subjective: This morning the patient states he is feeling well. He denies any chest pain, palpitations, or SOB. He denies weakness or pain. He is anxious to return home. - Objective Vital Signs & Weight: Vital Signs (12 hours) Temp Pulse Resp BP BP Pulse Ox 09/25/17 07:59 97.9 F 61 16 117/67 97 09/25/17 05:48 142/76 H 09/25/17 05:47 65 142/76 H 09/25/17 04:00 98.0 F 65 18 142/76 H 09/24/17 20:34 134/77 09/24/17 20:33 63 134/77 Weight Weight 120.656 kg I&O: 09/24/17 09/25/17 09/26/17 06:59 06:59 06:59 Intake Total 720 480 Output Total 900 875 Balance -180 -395 Result Diagrams: 09/24/17 03:03 09/24/17 03:03 <Amos Lynn - Last Filed: 09/25/17 08:11> - Objective Vital Signs & Weight: Vital Signs (12 hours) Temp Pulse Resp BP BP Pulse Ox 09/25/17 07:59 97.9 F 61 16 117/67 97 09/25/17 05:48 142/76 H 09/25/17 05:47 65 142/76 H 09/25/17 04:00 98.0 F 65 18 142/76 H Weight Weight 120.656 kg I&O: 09/24/17 09/25/17 09/26/17 06:59 06:59 06:59 Intake Total 720 480 Output Total 900 875 Balance -180 -395 Result Diagrams: 09/24/17 03:03 09/24/17 03:03 <Curt Lorenzo - Last Filed: 09/25/17 11:18> Phys Exam - Physical Examination Constitutional: NAD HEENT: PERRLA, moist MMs Neck: no nodes, full ROM Respiratory: no wheezing, clear to auscultation bilateral Cardiovascular: RRR, no significant murmur Gastrointestinal: soft, non-tender, no distention, positive bowel sounds Musculoskeletal: pulses present trace edema of the lower extremities Neurological: non-focal, moves all 4 limbs Psychiatric: normal affect, A&O x 3 Skin: no rash, cap refill <2 seconds <Amos Lynn - Last Filed: 09/25/17 08:11> Dx/Plan (1) Elevated troponin Code(s): R74.8 - ABNORMAL LEVELS OF OTHER SERUM ENZYMES Status: Acute (2) HTN (hypertension) Code(s): I10 - ESSENTIAL (PRIMARY) HYPERTENSION Status: Acute (3) AAA (abdominal aortic aneurysm) Code(s): I71.4 - ABDOMINAL AORTIC ANEURYSM, WITHOUT RUPTURE Status: Acute (4) LUÍS (obstructive sleep apnea) Code(s): G47.33 - OBSTRUCTIVE SLEEP APNEA (ADULT) (PEDIATRIC) Status: Acute (5) Tachycardia Code(s): R00.0 - TACHYCARDIA, UNSPECIFIED Status: Acute (6) Abnormal EKG Code(s): R94.31 - ABNORMAL ELECTROCARDIOGRAM [ECG] [EKG] Status: Acute - Plan Plan: # Tachycardia - 2 doses Adenosine OSH - rate in 70s on admit - Tele shows a few bigeminal PACs overnight, no other events - TSH, Mag WNL - carvedilol 6.125 - ASA, lovenox, plavix - Dr. Cazares consulted, recs appreciated -recs stress test today, may start multaq # Elevated troponin - 0.15 -> 0.38 -> .603 -> .671 -> .785 -> .616 - CTA neg for PE at OSH # HTN - home meds - imdur, lasix, lisinopril # HLD - high intesity statin # recent AAA repair # LUÍS - cpap at night #PPx - lovenox, scds # Code - full <Amos Lynn - Last Filed: 09/25/17 08:11> Attending Addendum - Attending Addendum Date/Time: 09/25/17 1118 I personally evaluated the patient and discussed the management with Dr. Lynn I agree with the History, Examination, Assessment and Plan documented above with any addition or exceptions noted below. <Curt Lorenzo - Last Filed: 09/25/17 11:18>
[2017-09-25] MEDS ORDERED: ADENOSINE 60 MG/20 ML VIAL ONE (10:29)
--- NOTE | 2017-09-25 15:02 | NM ---
CARDIAC SPECT: HISTORY: A 77-year-old male with elevated troponin, coronary artery disease, CABG, stent, hypertension, dyslip idemia. TECHNIQUE: A myocardial perfusion scan was performed using the single-isotope 1-day protocol with Technetium 99m sestamibi. Nine mCi were injected intravenously for the rest exam followed by 27 mCi for the stress study. Pharmacologic stress with adenosine is monitored and interpreted by Dr. Waterman. FINDINGS: Homogeneous tracer distribution is seen in the myocardial segments on stress and rest images without fixed or reversible defects. GATED SPECT LVEF: 40%. WALL MOTION EXAM: Global hypokinesis. IMPRESSION: No evidence of reversible ischemia. POS: [facility]
[2017-09-25] MEDS: Enoxaparin Sodium 120 MG/0.8 ML SYRINGE SC SCH (20:11)
[2017-09-25] MEDS: Clopidogrel Bisulfate 75 MG TAB PO SCH (20:12)
[2017-09-25] MEDS: Amlodipine 10 MG TAB PO SCH (20:13)
[2017-09-25] MEDS: Atorvastatin Calcium 40 MG TAB PO SCH (20:13)
--- NOTE | 2017-09-26 05:58 | PDOC.FM ---
- Subjective Subjective: This morning the patient states he is feeling well. He denies any chest pain or shortness of breath overnight. He denies any palpatations and states he slept well. - Objective Vital Signs & Weight: Vital Signs (12 hours) Temp Pulse Resp BP BP Pulse Ox 09/26/17 04:00 98.2 F 63 16 137/70 94 L 09/25/17 20:13 60 137/68 09/25/17 20:12 137/68 09/25/17 19:55 97.0 F L 60 16 97 09/25/17 19:45 97.5 F L 60 16 137/68 97 Weight Weight 122.697 kg I&O: 09/24/17 09/25/17 09/26/17 06:59 06:59 06:59 Intake Total 720 480 600 Output Total 900 875 400 Balance -180 -395 200 Result Diagrams: 09/24/17 03:03 09/24/17 03:03 <Amos Lynn - Last Filed: 09/26/17 12:40> - Objective Vital Signs & Weight: Vital Signs (12 hours) Temp Pulse Resp BP BP Pulse Ox 09/26/17 11:58 97.5 F L 75 18 121/69 97 09/26/17 08:08 98.4 F 68 19 132/63 96 09/26/17 04:00 98.2 F 63 16 137/70 94 L Weight Weight 119.884 kg I&O: 09/25/17 09/26/17 09/27/17 06:59 06:59 06:59 Intake Total 480 600 Output Total 875 1025 Balance -395 -425 Result Diagrams: 09/24/17 03:03 09/24/17 03:03 <Curt Lorenzo - Last Filed: 09/26/17 12:58> Phys Exam - Physical Examination Constitutional: NAD HEENT: PERRLA, moist MMs Neck: no nodes, full ROM Respiratory: no wheezing, clear to auscultation bilateral Cardiovascular: no significant murmur Gastrointestinal: soft, non-tender, no distention, positive bowel sounds Musculoskeletal: no edema, pulses present Neurological: non-focal, moves all 4 limbs Psychiatric: normal affect, A&O x 3 Skin: no rash, cap refill <2 seconds <Amos Lynn - Last Filed: 09/26/17 12:40> Dx/Plan (1) Elevated troponin Code(s): R74.8 - ABNORMAL LEVELS OF OTHER SERUM ENZYMES Status: Acute (2) HTN (hypertension) Code(s): I10 - ESSENTIAL (PRIMARY) HYPERTENSION Status: Acute (3) AAA (abdominal aortic aneurysm) Code(s): I71.4 - ABDOMINAL AORTIC ANEURYSM, WITHOUT RUPTURE Status: Acute (4) LUÍS (obstructive sleep apnea) Code(s): G47.33 - OBSTRUCTIVE SLEEP APNEA (ADULT) (PEDIATRIC) Status: Acute (5) Tachycardia Code(s): R00.0 - TACHYCARDIA, UNSPECIFIED Status: Acute (6) Abnormal EKG Code(s): R94.31 - ABNORMAL ELECTROCARDIOGRAM [ECG] [EKG] Status: Acute - Plan Plan: # Tachycardia - 2 doses Adenosine OSH - rate in 70s on admit - Tele shows a few bigeminal PACs overnight, no other events - TSH, Mag WNL - carvedilol 6.125 - Discussed with Dr. Ziegler & Roberto, plan for home on ASA and Eliquis - Dr. Cazares consulted, recs appreciated -recs stress test today, may start multaq # Elevated troponin - 0.15 -> 0.38 -> .603 -> .671 -> .785 -> .616 - CTA neg for PE at OSH # HTN - home meds - imdur, lasix, lisinopril # HLD - high intesity statin # recent AAA repair # LUÍS - cpap at night #PPx - lovenox, scds # Code - full <Amos Lynn - Last Filed: 09/26/17 12:40> Attending Addendum - Attending Addendum Date/Time: 09/26/17 1257 I personally evaluated the patient and discussed the management with Dr. Lynn I agree with the History, Examination, Assessment and Plan documented above with any addition or exceptions noted below. <Curt Lorenzo - Last Filed: 09/26/17 12:58>
[2017-09-26] MEDS: Lisinopril 20 MG TAB PO SCH ×2 (09:27→20:41)
[2017-09-26] MEDS: Carvedilol 6.25 MG TAB PO SCH ×2 (09:27→17:32)
[2017-09-26] MEDS: Dronedarone HCl 400 MG TAB PO SCH ×2 (09:27→17:32)
[2017-09-26] MEDS: Amlodipine 5 MG TAB PO SCH (09:27)
[2017-09-26] MEDS: Furosemide 40 MG TAB PO SCH (09:28)
[2017-09-26] MEDS: Enoxaparin Sodium 120 MG/0.8 ML SYRINGE SC SCH (09:28)
[2017-09-26] MEDS: Aspirin 81 mg Enteric Coated Tablet PO SCH (09:28)
[2017-09-26] MEDS ORDERED: Nitroglycerin 0.4 MG TAB (25 Tab Bottle) SL PRN (13:13)
[2017-09-26 14:43] LABS: Troponin I 0.328 ng/mL (< 0.028)
[2017-09-26 16:41] LABS: Troponin I 0.298 ng/mL (< 0.028)
--- NOTE | 2017-09-26 16:51 | PDOC.EVN ---
Event Note - Event Note Event Note: Called to bedside about 1330 for development of substernal chest pain. Dr. Ziegler was called and he ordered nitro to be given. On examiner's arrival nitro had been administered and chest pain had resolved. EKGs showed no ST changes. Serial troponins were ordered. Patient will stay in hospital overnight.
--- NOTE | 2017-09-26 17:15 | RAD ---
AP VIEW CHEST: 09/26/17 HISTORY: Chest pain. AP view chest is obtained on 09/26/17. Comparison made to previous exam from 09/23/17. AP view chest demonstrates sternotomy wires seen. EKG leads seen over the chest. The lungs are well a erated. No evidence of active intrathoracic disease is seen. No evidence of effusions, pneumonia, or pneumothorax seen. Some cardiomegaly is noted. IMPRESSION: Cardiomegaly, otherwise unremarkable AP view chest. POS: [facility]
[2017-09-26 20:06] LABS: Troponin I 0.269 ng/mL (< 0.028)
[2017-09-26] MEDS: Amlodipine 10 MG TAB PO SCH (20:41)
[2017-09-26] MEDS: Apixaban 5 MG TAB PO SCH (20:42)
[2017-09-26] MEDS: Atorvastatin Calcium 40 MG TAB PO SCH (20:42)
[2017-09-27] MEDS: Lisinopril 20 MG TAB PO SCH (09:22)
[2017-09-27] MEDS: Apixaban 5 MG TAB PO SCH ×2 (09:22→20:46)
[2017-09-27] MEDS: Furosemide 40 MG TAB PO SCH (09:23)
[2017-09-27] MEDS: Dronedarone HCl 400 MG TAB PO SCH ×2 (09:23→16:21)
[2017-09-27] MEDS: Carvedilol 6.25 MG TAB PO SCH ×2 (09:24→16:21)
[2017-09-27] MEDS: Aspirin 81 mg Enteric Coated Tablet PO SCH (09:24)
--- NOTE | 2017-09-27 11:04 | PDOC.FM ---
- Subjective Subjective: This morning patient states he is feeling much better. He denies any chest pain or shortness of breath overnight since episode last PM. He states he is ready to go home but understands the importance of sticking around for further evaluation. - Objective Vital Signs & Weight: Vital Signs (12 hours) Temp Pulse Resp BP BP Pulse Ox 09/27/17 09:24 123/59 L 09/27/17 09:22 123/59 L 09/27/17 04:00 98.1 F 65 18 127/62 97 Weight Weight 120.111 kg I&O: 09/26/17 09/27/17 09/28/17 06:59 06:59 06:59 Intake Total 600 Output Total 1025 800 Balance -425 -800 Result Diagrams: 09/24/17 03:03 09/24/17 03:03 <Amos Lynn - Last Filed: 09/27/17 11:04> - Objective Vital Signs & Weight: Vital Signs (12 hours) Temp Pulse Resp BP BP Pulse Ox 09/27/17 09:24 123/59 L 09/27/17 09:22 123/59 L 09/27/17 04:00 98.1 F 65 18 127/62 97 Weight Weight 120.111 kg I&O: 09/26/17 09/27/17 09/28/17 06:59 06:59 06:59 Intake Total 600 Output Total 1025 800 Balance -425 -800 Result Diagrams: 09/24/17 03:03 09/24/17 03:03 <Curt Lorenzo - Last Filed: 09/27/17 12:16> Phys Exam - Physical Examination Constitutional: NAD HEENT: PERRLA, moist MMs Neck: no nodes, full ROM Respiratory: no wheezing, clear to auscultation bilateral irregularly irregular, no murmur Gastrointestinal: soft, non-tender, no distention, positive bowel sounds Musculoskeletal: no edema, pulses present Neurological: non-focal, moves all 4 limbs Lymphatic: no nodes Psychiatric: normal affect, A&O x 3 Skin: no rash, cap refill <2 seconds <Amos Lynn - Last Filed: 09/27/17 11:04> Dx/Plan (1) Elevated troponin Code(s): R74.8 - ABNORMAL LEVELS OF OTHER SERUM ENZYMES Status: Acute (2) HTN (hypertension) Code(s): I10 - ESSENTIAL (PRIMARY) HYPERTENSION Status: Acute (3) AAA (abdominal aortic aneurysm) Code(s): I71.4 - ABDOMINAL AORTIC ANEURYSM, WITHOUT RUPTURE Status: Acute (4) LUÍS (obstructive sleep apnea) Code(s): G47.33 - OBSTRUCTIVE SLEEP APNEA (ADULT) (PEDIATRIC) Status: Acute (5) Tachycardia Code(s): R00.0 - TACHYCARDIA, UNSPECIFIED Status: Acute (6) Abnormal EKG Code(s): R94.31 - ABNORMAL ELECTROCARDIOGRAM [ECG] [EKG] Status: Acute - Plan Plan: # Tachycardia - 2 doses Adenosine OSH - rate in 70s on admit - Tele shows a few bigeminal PACs overnight - Stress test shows no irreversible changes - TSH, Mag WNL - carvedilol 6.125 - Discussed with Dr. Sloan, plan for home on ASA and Eliquis when ready for d/c - Dr. Cazares consulted, recs appreciated -recs stress test today, may start multaq # Elevated troponin - 0.15 -> 0.38 -> .603 -> .671 -> .785 -> .616 - .328-> .269 on 09/26 - CTA neg for PE at OSH - Spoke to Dr. Thomas today, will eval for possible cath # HTN - home meds - imdur, lasix, lisinopril # HLD - high intesity statin # recent AAA repair # LUÍS - cpap at night #PPx -scds, eliquis # Code - full <Amos Lynn - Last Filed: 09/27/17 11:04> Attending Addendum - Attending Addendum Date/Time: 09/27/17 1215 I personally evaluated the patient and discussed the management with Dr. Lynn I agree with the History, Examination, Assessment and Plan documented above with any addition or exceptions noted below.Will await Cardiology recommendations regarding further evaluation. <Curt Lorenzo - Last Filed: 09/27/17 12:16>
--- NOTE | 2017-09-27 11:42 | PDOC.CTH ---
<Jill Avalos - Last Filed: 09/27/17 12:53> Cardiology Progress Note - Subjective The pt seen and examined. No overnight events after episode of CP last night. No cardiac complaints at this moment. - Objective Vital Signs Temp Pulse Resp BP BP Pulse Ox 09/27/17 09:24 123/59 L 09/27/17 09:22 123/59 L 09/27/17 04:00 98.1 F 65 18 127/62 97 Weight 264 lb 12.8 oz 09/26/17 09/27/17 09/28/17 06:59 06:59 06:59 Intake Total 600 Output Total 1025 800 Balance -425 -800 - Physical Examination General/Neuro: alert & oriented x3 Neck: no JVD present Lungs: CTA Heart: RRR Abdomen: soft Extremities: other: (No edema) - Telemetry Telemetry Rhythm: SR 60s with PVCs - Labs Result Diagrams: 09/24/17 03:03 09/24/17 03:03 Troponin/CKMB CK-MB (CK-2) 1.0 ng/mL (0-6.6) 09/26/17 19:29 Troponin I 0.269 ng/mL (< 0.028) H 09/26/17 19:29 - Assessment/Plan 1. CAD with hx of CABG x4 in 1985 and 2001 and stent in LAD in 1996 - cont. monitor on tele - the episode of CP last night although his Stress test showed normal; Cardiac cath tomorrow. 2. Afib/Aflutter - remains in SR with Eliquis 5mg BID and Multaq 400mg BID. Cont. to monitor on tele 3. S/p AAA repair on 08/30/17 - cont. monitor 4. HTN - stable with current medication 5. LUÍS - Per family, he has not had Cpap machine at home. Strongly recommend to get and wear Cpap at HS. They voiced understanding. MAR reviewed * Plan for Cardiac cath on 09/28/17 in AM. The pt and family were explained the cardiac cath procedure and the risk of the procedure, such as infection, hemorrhage, perforation of cath, thrombosis, CVA, SD, allergic reaction to Iodine, and . They voiced understanding and agreed to proceed the procedure. Review of Systems - Review of Systems Constitutional: reports: no symptoms reported EENTM: reports: no symptoms reported Respiratory: reports: no symptoms reported Cardiac (ROS): reports: no symptoms reported ABD/GI: reports: no symptoms reported : reports: no symptoms reported Musculoskeletal: reports: no symptoms reported Skin: reports: no symptoms reported <Solange Thomas - Last Filed: 09/27/17 16:56> Cardiology Progress Note - Objective Vital Signs Temp Pulse Resp BP BP Pulse Ox 09/27/17 16:21 95/54 L 09/27/17 11:49 97.7 F 65 18 118/66 97 09/27/17 09:24 123/59 L 09/27/17 09:22 123/59 L 09/27/17 08:10 98 F 63 18 123/59 L 96 Weight 264 lb 12.8 oz 09/26/17 09/27/17 09/28/17 06:59 06:59 06:59 Intake Total 600 Output Total 1025 800 Balance -425 -800 - Labs Result Diagrams: 09/24/17 03:03 09/24/17 03:03 Troponin/CKMB CK-MB (CK-2) 1.0 ng/mL (0-6.6) 09/26/17 19:29 Troponin I 0.269 ng/mL (< 0.028) H 09/26/17 19:29 - Assessment/Plan Pt. seen and eval. by me. I agree with the A/P by the [employer] [facility]. Due to his extensive cardiac history and cheast pain event last night despite a negative stress test , I advise a repeat cardiac cath. Plan for tomorrow AM. If no intervention required then prob. D/C tomorrow a couple hours after the cardiac cath.
[2017-09-27] MEDS ORDERED: Communication Order-Pharmacy FS SCH (12:00)
[2017-09-27] MEDS: Atorvastatin Calcium 40 MG TAB PO SCH (20:46)
[2017-09-28 05:52] LABS: ALT (SGPT) 19 U/L (8-55); AST (SGOT) 19 U/L (5-34); Albumin 3.9 g/dL (3.4-4.8); Alkaline Phosphatase 92 U/L (40-150); Anion Gap 13 mmol/L (10-20); BUN (Urea Nitrogen) 23 mg/dL (8.4-25.7); Calc. Creatinine Clearance 94 mL/min (70-130); Calcium 8.9 mg/dL (7.8-10.44); Carbon Dioxide 24 mmol/L (23-31); Chloride 96 mmol/L (98-107); Estimated GFR-MDRD 64; Globulin 2.5 g/dL (2.4-3.5); Glucose 115 mg/dL (83-110); Potassium 3.6 mmol/L (3.5-5.1); Protein, Total 6.4 g/dL (5.8-8.1); Sodium 129 mmol/L (136-145)
[2017-09-28 06:08] LABS: Eosinophils 2 % (0-10); Hemoglobin 13.5 g/dL (14.0-18.0); Lymphocytes 30 % (21-51); MDiff Complete? YES; Mean Corpuscular HGB CONC 34.6 g/dL (32.0-36.0); Mean Corpuscular Hemoglobin 31.8 pg (27.0-31.0); Mean Corpuscular Volume 91.7 fl (80.0-94.0); Mean Platelet Volume 7.3 fL (7.4-10.4); Monocytes 16 % (0-10); Neutrophil 52 % (42-75); Platelet Count 181 thou/uL (130-400); RBC Distribution Width 12.4 % (11.5-14.5); Red Blood Cell (RBC) Count 4.25 mill/uL (4.70-6.10); White Blood Cell (WBC) Count 4.8 thou/uL (4.8-10.8)
[2017-09-28] MEDS ORDERED: Lidocaine 1% (PF) 30 ML VIAL ONE (06:36)
[2017-09-28] MEDS: Furosemide 40 MG TAB PO SCH (06:37)
[2017-09-28] MEDS: Aspirin 81 mg Enteric Coated Tablet PO SCH (06:37)
[2017-09-28] MEDS: Dronedarone HCl 400 MG TAB PO SCH ×2 (06:37→16:31)
--- NOTE | 2017-09-28 08:34 | PDOC.FM ---
Addendum entered and electronically signed by Amos Lynn MD 09/28/17 10:35: Had cath this morning. No stents. EP consulted for eval, may need ablation for treatment of a. flutter Dr. Mejia consulted, to eval cath images of ascending aorta, may be widened per Dr. Thomas Stopped amlodipine, lisinopril down to 10mg daily, Coreg 6.125 BID- monitor BP Original Note: - Subjective Subjective: This morning patient states he slept well and had no chest pain or SOB overnight. He did have an episode of shortness of breath and light-headedness yesterday PM. He will go for cath this morning. Overnight, he was in and out of Atrial flutter based on tele. - Objective Vital Signs & Weight: Vital Signs (12 hours) Temp Pulse Resp BP Pulse Ox 09/28/17 04:00 98.2 F 109 H 22 H 116/77 94 L Weight Weight 120.247 kg I&O: 09/27/17 09/28/17 09/29/17 06:59 06:59 06:59 Intake Total 480 Output Total 800 1300 Balance -800 -820 Result Diagrams: 09/28/17 04:39 09/28/17 04:39 <Amos Lynn - Last Filed: 09/28/17 08:34> - Objective Vital Signs & Weight: Vital Signs (12 hours) Temp Pulse Resp BP BP Pulse Ox 09/28/17 11:12 97.9 F 112 H 17 123/74 95 09/28/17 08:30 97.8 F 111 H 18 107/67 92 L 09/28/17 04:00 98.2 F 109 H 22 H 116/77 94 L Weight Weight 120.247 kg I&O: 09/27/17 09/28/17 09/29/17 06:59 06:59 06:59 Intake Total 480 Output Total 800 1300 Balance -800 -820 Result Diagrams: 09/28/17 04:39 09/28/17 04:39 <Curt Lorenzo - Last Filed: 09/28/17 13:33> Phys Exam - Physical Examination Constitutional: NAD HEENT: PERRLA, moist MMs Neck: no nodes, full ROM Respiratory: no wheezing, clear to auscultation bilateral Cardiovascular: RRR, no significant murmur Gastrointestinal: soft, non-tender, no distention, positive bowel sounds Musculoskeletal: no edema, pulses present Neurological: non-focal, moves all 4 limbs Lymphatic: no nodes Psychiatric: normal affect, A&O x 3 Skin: no rash, cap refill <2 seconds <Amos Lynn - Last Filed: 09/28/17 08:34> Dx/Plan (1) Elevated troponin Code(s): R74.8 - ABNORMAL LEVELS OF OTHER SERUM ENZYMES Status: Acute (2) HTN (hypertension) Code(s): I10 - ESSENTIAL (PRIMARY) HYPERTENSION Status: Acute (3) AAA (abdominal aortic aneurysm) Code(s): I71.4 - ABDOMINAL AORTIC ANEURYSM, WITHOUT RUPTURE Status: Acute (4) LUÍS (obstructive sleep apnea) Code(s): G47.33 - OBSTRUCTIVE SLEEP APNEA (ADULT) (PEDIATRIC) Status: Acute (5) Tachycardia Code(s): R00.0 - TACHYCARDIA, UNSPECIFIED Status: Acute (6) Abnormal EKG Code(s): R94.31 - ABNORMAL ELECTROCARDIOGRAM [ECG] [EKG] Status: Acute - Plan Plan: # Tachycardia - 2 doses Adenosine OSH - rate in 70s on admit - Tele shows a. flutter overnight - BP medications held yesterday PM 2/2 hypotension - Stress test shows no irreversible changes - TSH, Mag WNL - Discussed with Dr. Ziegler & Roberto, plan for home on ASA and Eliquis when ready for d/c - Dr. Thomas with cath patient this AM -appreciate recs on management of tachycardia & episodes of hypotension # Elevated troponin - 0.15 -> 0.38 -> .603 -> .671 -> .785 -> .616 - .328-> .269 on 09/26 - CTA neg for PE at OSH - last 2 days, had an episode of chest pain each afternoon # HTN - home meds - imdur, lasix, lisinopril # HLD - high intesity statin # recent AAA repair 08/30/17 # LUÍS - not on cpap #PPx -scds, eliquis # Code - full <Amos Lynn - Last Filed: 09/28/17 08:34> Attending Addendum - Attending Addendum Date/Time: 09/28/17 1330 I personally evaluated the patient and discussed the management with Dr. Lynn I agree with the History, Examination, Assessment and Plan documented above with any addition or exceptions noted below. Patient s/p Heart cath will need further EP evaluation for possible ablative procedure. Continue observation on multaq. <Curt Lorenzo - Last Filed: 09/28/17 13:33>
[2017-09-28] MEDS ORDERED: Acetaminophen/Codeine 30-300mg Tablet PO PRN ×2 (09:00)
[2017-09-28] MEDS ORDERED: traMADol HCl 50 MG TAB PO PRN (09:00)
[2017-09-28] MEDS ORDERED: Nitroglycerin 0.4 MG TAB (25 Tab Bottle) SL PRN (09:00)
[2017-09-28] MEDS ORDERED: Sodium Chloride 0.9% 200 ML IV PRN (09:00)
[2017-09-28] MEDS: Apixaban 5 MG TAB PO SCH ×2 (09:33→21:39)
[2017-09-28] MEDS ORDERED: Lisinopril 10 MG TAB PO SCH (10:45)
[2017-09-28] MEDS ORDERED: Iopamidol 370 76% 100 ML VIAL ONE (13:26)
[2017-09-28] MEDS ORDERED: Iopamidol 370 76% 50 ML VIAL FS ONE (13:26)
--- NOTE | 2017-09-28 15:07 | CON ---
DATE OF CONSULTATION: 09/28/2017 REFERRING PHYSICIAN: Dr. Janet Thomas. REASON FOR CONSULTATION: Atrial arrhythmia. HISTORY OF PRESENT ILLNESS: I was asked by Dr. Thomas to provide electrophysiology consultation for Mr Erma Whitmore, very pleasant 77-year-old gentleman with a history of hypertension, coronary artery disea se status post coronary bypass surgery and percutaneous aortic aneurysm repair. He was admitted on 0 09/23/2017 with atrial fibrillation/flutter and has been started on dronedarone. He has apparently re ceived 4 doses to this point. He underwent a cardiac catheterization this morning by Dr. Thomas given intermittent chest pain. He was not found to require revascularization. He continues to have periods of elevated heart rate. This morning, his rhythm appears to be consiste nt with atrial tachycardia/flutter with a ventricular rate of approximately 116 beats per minute. He is hemodynamically stable. We were asked by Dr. Thomas to assist in the management of his arrhythmia. It should be noted that during the course of his hospitalization, he has had periods of normal sinu s rhythm. Anticoagulation has been initiated with Eliquis 5 mg b.i.d. He has had no CVA or TIA like symptoms. PAST MEDICAL HISTORY: 1. Coronary disease with history of coronary bypass surgery. 3. History of percutaneous aortic aneurysm repair in 08/2017. 4. Essential hypertension. 5. Obstructive sleep apnea. CURRENT MEDICATIONS: Multaq 400 mg b.i.d., Eliquis 5 mg b.i.d., Lipitor 40 mg per day, furosemide 40 mg per day, isosorbide mononitrate 30 mg per day. ALLERGIES: HYDROCHLOROTHIAZIDE. FAMILY HISTORY: No family history of arrhythmia or sudden . SOCIAL HISTORY: No ethanol or tobacco. REVIEW OF SYSTEMS: A 12-point system review was discussed with Mr. Whitmore aside from that mentione d history of present illness, otherwise negative. PHYSICAL EXAMINATION: VITAL SIGNS: Blood pressure is 116/77, pulse is and regular. GENERAL: He is alert and oriented with appropriate affect. HEENT: Moist mucous membranes. Nonicteric sclerae. NECK: No bruits. Normal thyroid. No JVD. CHEST: Clear to auscultation in all clark. HEART: Mildly tachycardic, regular rhythm. No murmurs, gallops, or rubs. PMI is not displaced. ABDOMEN: Bowel sounds positive. Normoactive, nontender. No hepatosplenomegaly or masses. EXTREMITIES: No clubbing, cyanosis or edema. NEUROLOGIC: Grossly intact. EKG this morning demonstrates probable atrial flutter with 2:1 AV conduction with a ventricular rate of 116 beats per minute. IMPRESSION: 1. Atrial tachycardia/flutter. 2. History of coronary bypass surgery. 3. History of percutaneous aortic aneurysm repair. 4. Essential hypertension. RECOMMENDATIONS: I would continue Multaq until Mr. Whitmore is fully loaded. If he continues to hav e persistent atrial tachycardia/flutter, we would consider ablative therapy if his arrhythmia substra te early next week. We will continue Eliquis for CVA prophylaxis. I had a discussion with Mr. Efe evans and his family regarding the rationale for ablation along with the risks involved. The risks of the procedure include but are not limited to bleeding, infection, damage to blood vessels, pericardia l tamponade, stroke, myocardial infarction, . He would like to proceed if necessary on Sunday t o Sunday of next week, assuming that he continues to have intermittent/persistent arrhythmia.
[2017-09-28] MEDS: Atorvastatin Calcium 40 MG TAB PO SCH (21:39)
--- NOTE | 2017-09-29 06:33 | PDOC.FM ---
- Objective Vital Signs & Weight: Vital Signs (12 hours) Temp Pulse Resp BP Pulse Ox 09/29/17 04:00 98.1 F 114 H 21 H 124/63 96 09/29/17 00:00 97.9 F 113 H 18 131/99 H 96 09/28/17 20:00 97.9 F 113 H 18 114/77 97 Weight Weight 120.701 kg I&O: 09/27/17 09/28/17 09/29/17 06:59 06:59 06:59 Intake Total 480 1060 Output Total 800 1300 1380 Balance -800 -820 -320 Result Diagrams: 09/28/17 04:39 09/28/17 04:39
--- NOTE | 2017-09-29 06:36 | PDOC.FM ---
- Subjective Subjective: Patient is resting comfortably this morning. Reports no CP, no feelings of palpitations, no SOB. Overnight, patient continued to have irregular Aflutter rhythm with tachycardia into the 110's. Patient is on board for ablation on Sunday or Sunday. - Objective MAR Reviewed: Yes Vital Signs & Weight: Vital Signs (12 hours) Temp Pulse Resp BP Pulse Ox 09/29/17 04:00 98.1 F 114 H 21 H 124/63 96 09/29/17 00:00 97.9 F 113 H 18 131/99 H 96 09/28/17 20:00 97.9 F 113 H 18 114/77 97 Weight Weight 120.701 kg I&O: 09/27/17 09/28/17 09/29/17 06:59 06:59 06:59 Intake Total 480 1060 Output Total 800 1300 1380 Balance -800 -820 -320 Result Diagrams: 09/28/17 04:39 09/28/17 04:39 <Genoveva Mejia - Last Filed: 09/29/17 07:55> - Objective Vital Signs & Weight: Vital Signs (12 hours) Temp Pulse Resp BP BP BP Pulse Ox 09/29/17 11:13 97.8 F 122 H 16 92/60 96 09/29/17 08:00 97.7 F 73 17 09/29/17 07:44 73 17 100/70 94 L 09/29/17 04:00 98.1 F 114 H 21 H 124/63 96 Weight Weight 120.701 kg I&O: 09/28/17 09/29/17 09/30/17 06:59 06:59 06:59 Intake Total 480 1060 Output Total 1300 1380 Balance -820 -320 Result Diagrams: 09/28/17 04:39 09/28/17 04:39 <Curt Lorenzo - Last Filed: 09/29/17 12:04> Phys Exam - Physical Examination Constitutional: NAD HEENT: PERRLA, moist MMs Respiratory: no wheezing, no rales, clear to auscultation bilateral irregularly irregular Gastrointestinal: soft, non-tender Musculoskeletal: no edema Neurological: moves all 4 limbs Psychiatric: A&O x 3 <Genoveva Mejia - Last Filed: 09/29/17 07:55> Dx/Plan (1) Atrial flutter Code(s): I48.92 - UNSPECIFIED ATRIAL FLUTTER Status: Acute (2) Tachycardia Code(s): R00.0 - TACHYCARDIA, UNSPECIFIED Status: Acute (3) AAA (abdominal aortic aneurysm) Code(s): I71.4 - ABDOMINAL AORTIC ANEURYSM, WITHOUT RUPTURE Status: Acute (4) Elevated troponin Code(s): R74.8 - ABNORMAL LEVELS OF OTHER SERUM ENZYMES Status: Acute (5) HTN (hypertension) Code(s): I10 - ESSENTIAL (PRIMARY) HYPERTENSION Status: Acute (6) LUÍS (obstructive sleep apnea) Code(s): G47.33 - OBSTRUCTIVE SLEEP APNEA (ADULT) (PEDIATRIC) Status: Acute - Plan Plan: # Tachycardia, Aflutter vs Afib - 2 doses Adenosine OSH - rate in 70s on admit - continued abnormal rhythm overnight - Stress test shows no irreversible changes - cath negative - TSH, Mag WNL - Discussed with Dr. Ziegler & Roberto, plan for home on ASA and Eliquis when ready for d/c - EP to evaluate and plan for ablation on Sunday or Sunday if continuing to have episodes of aflutter # Elevated troponin - 0.15 -> 0.38 -> .603 -> .671 -> .785 -> .616 - .328-> .269 on 09/26 - CTA neg for PE at OSH - last 2 days, had an episode of chest pain each afternoon, resolved with nitro # HTN - home meds - episodes of hypotension during hospitalization, continue to monitor BP, currently normotensive - imdur, lasix, lisinopril # HLD - high intesity statin # recent AAA repair 08/30/17 - possible aortic widening on imaging per Dr. Thomas - Dr. Mejia to evaluate # LUÍS - not on cpap Dispo: Patient to get ablation on Sun or Sunday. Likely d/c once normal sinus rhythm or rate controlled. <Genoveva Mejia - Last Filed: 09/29/17 07:55> Attending Addendum - Attending Addendum Date/Time: 09/29/17 1202 I personally evaluated the patient and discussed the management with Dr. Mejia I agree with the History, Examination, Assessment and Plan documented above with any addition or exceptions noted below. Patient with irregular rhythm atrial flutter continue multaq and observation denies any current CP for EP study ablation Sunday. <Curt Lorenzo - Last Filed: 09/29/17 12:04>
[2017-09-29] MEDS: Furosemide 40 MG TAB PO SCH (07:47)
[2017-09-29] MEDS: Aspirin 81 mg Enteric Coated Tablet PO SCH (09:13)
[2017-09-29] MEDS: Dronedarone HCl 400 MG TAB PO SCH ×2 (09:13→16:52)
[2017-09-29] MEDS: Apixaban 5 MG TAB PO SCH ×2 (09:13→19:51)
[2017-09-29] MEDS: Loratadine 10 MG TAB PO PRN (17:59)
[2017-09-29] MEDS: Atorvastatin Calcium 40 MG TAB PO SCH (19:51)
--- NOTE | 2017-09-30 06:42 | PDOC.FM ---
- Subjective Subjective: Patient is resting this morning. Only complaint is some nasal congestion he relates to seasonal allergies. Denies CP, SOB, and palpitations at this time. No acute events overnight. - Objective MAR Reviewed: Yes Vital Signs & Weight: Vital Signs (12 hours) Temp Pulse Resp BP Pulse Ox 09/30/17 05:07 97.8 F 82 15 119/68 97 09/29/17 20:00 98.0 F 113 H 18 122/79 95 Weight Weight 120.61 kg I&O: 09/28/17 09/29/17 09/30/17 06:59 06:59 06:59 Intake Total 480 1060 1930 Output Total 1300 1380 1375 Balance -820 -320 555 Result Diagrams: 09/28/17 04:39 09/28/17 04:39 <Genoveva Mejia - Last Filed: 09/30/17 11:36> - Objective Vital Signs & Weight: Vital Signs (12 hours) Temp Pulse Resp BP Pulse Ox 09/30/17 15:31 97.8 F 118 H 22 H 120/87 96 09/30/17 11:35 98.1 F 90 16 125/67 96 09/30/17 08:00 97.9 F 79 18 09/30/17 07:34 97.9 F 79 18 135/84 95 Weight Weight 120.61 kg I&O: 09/29/17 09/30/17 10/01/17 06:59 06:59 06:59 Intake Total 1060 1930 Output Total 1380 1375 Balance -320 555 Result Diagrams: 09/28/17 04:39 09/28/17 04:39 <Curt Lorenzo - Last Filed: 09/30/17 17:14> Phys Exam - Physical Examination Constitutional: NAD HEENT: PERRLA, moist MMs, oral pharynx no lesions nasal congestion Neck: no nodes Respiratory: no wheezing, no rales, clear to auscultation bilateral Cardiovascular: RRR, no significant murmur Gastrointestinal: soft, non-tender, no distention Neurological: moves all 4 limbs Psychiatric: A&O x 3 <Genoveva Mejia - Last Filed: 09/30/17 11:36> Dx/Plan (1) Atrial flutter Code(s): I48.92 - UNSPECIFIED ATRIAL FLUTTER Status: Acute (2) Tachycardia Code(s): R00.0 - TACHYCARDIA, UNSPECIFIED Status: Acute (3) AAA (abdominal aortic aneurysm) Code(s): I71.4 - ABDOMINAL AORTIC ANEURYSM, WITHOUT RUPTURE Status: Acute (4) Elevated troponin Code(s): R74.8 - ABNORMAL LEVELS OF OTHER SERUM ENZYMES Status: Acute (5) HTN (hypertension) Code(s): I10 - ESSENTIAL (PRIMARY) HYPERTENSION Status: Acute (6) LUÍS (obstructive sleep apnea) Code(s): G47.33 - OBSTRUCTIVE SLEEP APNEA (ADULT) (PEDIATRIC) Status: Acute - Plan Plan: # Tachycardia, Aflutter vs Afib - 2 doses Adenosine OSH - rate in 70s on admit - continued abnormal rhythm overnight - Stress test shows no irreversible changes - cath negative - TSH, Mag WNL - Discussed with Dr. Ziegler & Roberto, plan for home on ASA and Eliquis when ready for d/c - EP to evaluate and plan for ablation on Sunday or Sunday if continuing to have episodes of aflutter # Elevated troponin - 0.15 -> 0.38 -> .603 -> .671 -> .785 -> .616 - .328-> .269 on 09/26 - CTA neg for PE at OSH - last 2 days, had an episode of chest pain each afternoon, resolved with nitro # HTN - home meds - episodes of hypotension during hospitalization, continue to monitor BP, currently normotensive - imdur, lasix, lisinopril # HLD - high intesity statin # recent AAA repair 08/30/17 - possible aortic widening on imaging per Dr. Thomas - Dr. Mejia to evaluate # LUÍS - not on cpap # Seasonal Allergies - Mucinex - Flonase - daily Claritin Dispo: Patient to get ablation on Sun or Sunday. Likely d/c once normal sinus rhythm or rate controlled. <Genoveva Mejia - Last Filed: 09/30/17 11:36> Attending Addendum - Attending Addendum Date/Time: 09/30/17 1714 I personally evaluated the patient and discussed the management with Dr. Mejia I agree with the History, Examination, Assessment and Plan documented above with any addition or exceptions noted below. <Curt Lorenzo - Last Filed: 09/30/17 17:14>
[2017-09-30] MEDS: Dronedarone HCl 400 MG TAB PO SCH ×2 (07:40→17:18)
[2017-09-30] MEDS: Furosemide 40 MG TAB PO SCH (07:40)
[2017-09-30] MEDS: Aspirin 81 mg Enteric Coated Tablet PO SCH (09:44)
[2017-09-30] MEDS: Loratadine 10 MG TAB PO PRN (09:44)
[2017-09-30] MEDS: Apixaban 5 MG TAB PO SCH ×2 (09:44→21:32)
[2017-09-30] MEDS: Fluticasone Propionate Nasal Spray 16 gm Bottle NASAL SCH (09:45)
[2017-09-30] MEDS: Atorvastatin Calcium 40 MG TAB PO SCH (21:31)
[2017-09-30] MEDS: guaiFENesin ER 600 MG TAB PO SCH (21:32)
[2017-09-30] MEDS ORDERED: Sodium Chloride 0.65% Nasal 44 ML BOT EA NARE PRN (21:50)
[2017-10-01] MEDS: Fluticasone Propionate Nasal Spray 16 gm Bottle NASAL SCH (05:09)
[2017-10-01 05:37] LABS: #Eosinphils 0.1 thou/uL (0.0-0.7); #Lymphocytes 1.2 thou/uL (1.20-3.40); #Monocytes 0.6 thou/uL (0.11-0.59); #Neutrophils 3.2 thou/uL (1.40-6.50); %Basophils 0.1 % (0.0-1.0); %Eosinophils 2.8 % (0.0-10.0); %Lymphocytes 23.1 % (21.0-51.0); Hemoglobin 13.5 g/dL (14.0-18.0); Mean Corpuscular HGB CONC 35.1 g/dL (32.0-36.0); Mean Corpuscular Hemoglobin 31.5 pg (27.0-31.0); Mean Corpuscular Volume 89.6 fl (80.0-94.0); Mean Platelet Volume 6.7 fL (7.4-10.4); Platelet Count 180 thou/uL (130-400); RBC Distribution Width 12.2 % (11.5-14.5); Red Blood Cell (RBC) Count 4.29 mill/uL (4.70-6.10); White Blood Cell (WBC) Count 5.1 thou/uL (4.8-10.8)
[2017-10-01 05:41] LABS: INR-International Normal Ratio 1.2; PTT 35.6 SEC (22.9-36.1); Prothrombin Time 15.7 SEC (12.0-14.7)
[2017-10-01 06:15] LABS: Anion Gap 14 mmol/L (10-20); BUN (Urea Nitrogen) 14 mg/dL (8.4-25.7); Calc. Creatinine Clearance 119 mL/min (70-130); Carbon Dioxide 23 mmol/L (23-31); Estimated GFR-MDRD 83; Glucose 110 mg/dL (83-110); Potassium 3.5 mmol/L (3.5-5.1)
--- NOTE | 2017-10-01 06:19 | PDOC.FM ---
- Subjective Subjective: This morning the patient denies any chest pain, palpitations, or shortness of breath overnight. He states he is feeling fine ambulating to the restroom. He and his ask appropriate questions about ablation. - Objective Vital Signs & Weight: Vital Signs (12 hours) Temp Pulse Resp BP Pulse Ox 09/30/17 23:00 98.1 F 118 H 20 138/87 96 09/30/17 20:30 98.3 F 118 H 20 133/67 95 Weight Weight 120.61 kg I&O: 09/29/17 09/30/17 10/01/17 06:59 06:59 06:59 Intake Total 1060 1930 1210 Output Total 1380 1375 850 Balance -320 555 360 Result Diagrams: 10/01/17 05:04 10/01/17 05:04 Phys Exam - Physical Examination Constitutional: NAD HEENT: PERRLA, moist MMs Neck: no nodes, full ROM Respiratory: no wheezing, clear to auscultation bilateral Cardiovascular: no significant murmur irregularly irregular rhythm Gastrointestinal: soft, non-tender, no distention, positive bowel sounds Musculoskeletal: no edema, pulses present Neurological: non-focal, moves all 4 limbs Lymphatic: no nodes Psychiatric: normal affect, A&O x 3 Skin: no rash, cap refill <2 seconds Dx/Plan (1) Elevated troponin Code(s): R74.8 - ABNORMAL LEVELS OF OTHER SERUM ENZYMES Status: Acute (2) HTN (hypertension) Code(s): I10 - ESSENTIAL (PRIMARY) HYPERTENSION Status: Acute (3) AAA (abdominal aortic aneurysm) Code(s): I71.4 - ABDOMINAL AORTIC ANEURYSM, WITHOUT RUPTURE Status: Acute (4) LUÍS (obstructive sleep apnea) Code(s): G47.33 - OBSTRUCTIVE SLEEP APNEA (ADULT) (PEDIATRIC) Status: Acute (5) Tachycardia Code(s): R00.0 - TACHYCARDIA, UNSPECIFIED Status: Acute (6) Abnormal EKG Code(s): R94.31 - ABNORMAL ELECTROCARDIOGRAM [ECG] [EKG] Status: Acute - Plan Plan: # Tachycardia, Aflutter vs Afib - 2 doses Adenosine OSH - rate in 70s on admit - Stress test shows no irreversible changes - cath negative - TSH, Mag WNL - Discussed anticoagulation with Dr. Sloan, plan for home on ASA and Eliquis when ready for d/c - Cath last week by Dr. Thomas, recommends EP eval - A flutter over the weekend, despite dronedarone - EP eval for ablation today # Elevated troponin - 0.15 -> 0.38 -> .603 -> .671 -> .785 -> .616 - .328-> .269 on 09/26 - CTA neg for PE at OSH - last 2 days, had an episode of chest pain each afternoon, resolved with nitro # HTN - home meds - episodes of hypotension during hospitalization, continue to monitor BP, currently normotensive - imdur, lasix, lisinopril 10mg after EP evaluation # HLD - high intesity statin # recent AAA repair 08/30/17 - possible aortic widening on imaging per Dr. Thomas recs CV surgery eval # LUÍS - not on cpap # Seasonal Allergies - Mucinex - Flonase - daily Claritin Dispo: likely ablation today, possible d/c tomorrow pending course
[2017-10-01 06:39] LABS: Chloride 96 mmol/L (98-107); Sodium 129 mmol/L (136-145)
[2017-10-01] MEDS ORDERED: Lidocaine 1% (PF) 30 ML VIAL ONE (09:59)
[2017-10-01] MEDS ORDERED: Heparin 10,000 UNITS/1 ML VIAL ONE (09:59)
[2017-10-01] MEDS: guaiFENesin ER 600 MG TAB PO SCH ×2 (12:25→22:08)
--- NOTE | 2017-10-01 13:39 | ADD-PRG ---
This is an addendum to the note of Dr. Amos Lynn. Mr. Whitmore was admitted with atrial fib/flutter with RVR. He is currently on several medications and still having atrial fibrillation flutter with R VR. He has been seen in consultation by Electrophysiology and will be taken for an ablation later to day. Clinically, he is stable.
[2017-10-01] MEDS ORDERED: Propofol 1,000 MG/100 ML VIAL IV ONE (14:18)
--- NOTE | 2017-10-01 14:58 | PDOC.CTH ---
<Monet Uribe - Last Filed: 10/01/17 14:56> Cardiology Progress Note - Subjective EP progress note: Patient seen and evaluated. Has done well over the weekend and is prepared for ablation today. He does not have any new cardiac complaints. is bedside. - Objective Vital Signs Temp Pulse Resp BP Pulse Ox 10/01/17 12:00 98.1 F 119 H 19 126/82 95 10/01/17 08:00 98.9 F 122 H 18 128/84 96 10/01/17 05:00 98.3 F 119 H 20 122/80 95 Weight 262 lb 12.8 oz 09/30/17 10/01/17 10/02/17 06:59 06:59 06:59 Intake Total 1930 1690 Output Total 1375 1900 Balance 555 -210 - Physical Examination General/Neuro: alert & oriented x3, NAD Neck: carotid US brisk, no JVD present Lungs: unlabored respirations Heart: PMI normal Abdomen: no HSM, NT/ND - Labs Result Diagrams: 10/01/17 05:04 10/01/17 05:04 Troponin/CKMB CK-MB (CK-2) 1.0 ng/mL (0-6.6) 09/26/17 19:29 Troponin I 0.269 ng/mL (< 0.028) H 09/26/17 19:29 - Assessment/Plan 1. Typical atrial flutter vs atrial tachycardia- CTI ablation scheduled for today. All questions answered. No atrial fibrillation seen yet. On Multaq for arrhythmia suppression. 2. Elevated CHADS-VASC of 4: age, HTN, vascular disease, continue Eliquis 5mg BID for CVA prophylaxis. Continue post ablation without interruption 3. CAD, prior CABG <IsaKenroy - Last Filed: 10/01/17 16:21> Cardiology Progress Note - Objective Vital Signs Temp Pulse Resp BP Pulse Ox 10/01/17 12:00 98.1 F 119 H 19 126/82 95 10/01/17 08:00 98.9 F 122 H 18 128/84 96 10/01/17 05:00 98.3 F 119 H 20 122/80 95 Weight 262 lb 12.8 oz 09/30/17 10/01/17 10/02/17 06:59 06:59 06:59 Intake Total 1930 1690 Output Total 4045 1900 Balance 555 -210 - Labs Result Diagrams: 10/01/17 05:04 10/01/17 05:04 Troponin/CKMB CK-MB (CK-2) 1.0 ng/mL (0-6.6) 09/26/17 19:29 Troponin I 0.269 ng/mL (< 0.028) H 09/26/17 19:29 Attending Addendum - Attending Addendum Date/Time: 10/01/17 1620 I personally evaluated the patient and discussed the management with Ms Uribe. I agree with the History, Examination, Assessment and Plan documented above with any addition or exceptions noted below.
[2017-10-01] MEDS ORDERED: Propofol 200 MG/20 ML VIAL ONE (15:13)
[2017-10-01] MEDS ORDERED: Isoproterenol 0.2 MG/1 ML AMP ONE (15:32)
[2017-10-01] MEDS ORDERED: Mag-Al 1200 mg/1200 mg/30 ML UDCUP PO PRN (17:40)
[2017-10-01] MEDS ORDERED: Bisacodyl 10 MG SUPP PR PRN (17:40)
[2017-10-01] MEDS ORDERED: diphenhydrAMINE 25 MG CAP PO PRN (17:40)
[2017-10-01] MEDS ORDERED: Temazepam 15 MG CAP PO PRN (17:40)
[2017-10-01] MEDS ORDERED: Bisacodyl 5 MG TAB PO PRN (17:40)
[2017-10-01] MEDS ORDERED: Ondansetron HCl/PF 4 MG/2 ML Vial IVP PRN (17:40)
[2017-10-01] MEDS ORDERED: traMADol HCl 50 MG TAB PO PRN (17:40)
[2017-10-01] MEDS ORDERED: Silver Sulfadiazine 1% Cream 50 GM JAR TOP PRN (17:40)
[2017-10-01] MEDS: Apixaban 5 MG TAB PO SCH ×2 (17:46→22:08)
[2017-10-01] MEDS: Aspirin 81 mg Enteric Coated Tablet PO SCH (17:46)
[2017-10-01] MEDS: Dronedarone HCl 400 MG TAB PO SCH ×2 (20:00→20:01)
[2017-10-01] MEDS: Furosemide 40 MG TAB PO SCH (20:01)
--- NOTE | 2017-10-01 20:04 | EKG ---
Test Reason : PREOP Blood Pressure : / mmHG Vent. Rate : 120 BPM Atrial Rate : 120 BPM P-R Int : 000 ms QRS Dur : 132 ms QT Int : 300 ms P-R-T Axes : 000 -11 192 degrees QTc Int : 424 ms Sinus tachycardia with 1st degree A-V block Non-specific intra-ventricular conduction block T wave abnormality, consider inferolateral ischemia Abnormal ECG When compared with ECG of 26-SEP-2017 13:22, (Unconfirmed) TX interval has decreased Vent. rate has increased BY 57 BPM Confirmed by UMER GOULD, SErma (4) on 10/01/2017 8:04:29 PM Referred By: [facility] Confirmed By:DR. Parris OWUSU MD
[2017-10-01] MEDS: Atorvastatin Calcium 40 MG TAB PO SCH (22:08)
--- NOTE | 2017-10-02 06:13 | PDOC.FM ---
- Subjective Subjective: Patient had ablation done yesterday by Dr. Moss. Overnight remained in sinus rhythm. Patient denies any chest pain, sob, or pain at femoral site. Denies any nausea or vomiting after the procedure. - Objective Vital Signs & Weight: Vital Signs (12 hours) Temp Pulse Resp BP Pulse Ox 10/02/17 03:45 97.7 F 90 18 154/92 H 96 10/01/17 20:00 98.4 F 85 20 152/85 H 94 L Weight Weight 117.889 kg I&O: 09/30/17 10/01/17 10/02/17 06:59 06:59 06:59 Intake Total 1930 1690 1200 Output Total 1375 1900 1650 Balance 555 -880 -656 Result Diagrams: 10/01/17 05:04 10/01/17 05:04 Phys Exam - Physical Examination Constitutional: NAD HEENT: PERRLA, moist MMs Neck: no nodes, full ROM Respiratory: no wheezing, clear to auscultation bilateral Cardiovascular: RRR 3/6 murmur Gastrointestinal: soft, non-tender, no distention, positive bowel sounds Musculoskeletal: no edema, pulses present Neurological: non-focal, moves all 4 limbs Psychiatric: normal affect, A&O x 3 Skin: no rash, cap refill <2 seconds Deviation from normal: mild hematoma at right femoral site, no pain Dx/Plan (1) Elevated troponin Code(s): R74.8 - ABNORMAL LEVELS OF OTHER SERUM ENZYMES Status: Acute (2) HTN (hypertension) Code(s): I10 - ESSENTIAL (PRIMARY) HYPERTENSION Status: Acute (3) AAA (abdominal aortic aneurysm) Code(s): I71.4 - ABDOMINAL AORTIC ANEURYSM, WITHOUT RUPTURE Status: Acute (4) LUÍS (obstructive sleep apnea) Code(s): G47.33 - OBSTRUCTIVE SLEEP APNEA (ADULT) (PEDIATRIC) Status: Acute (5) Tachycardia Code(s): R00.0 - TACHYCARDIA, UNSPECIFIED Status: Acute (6) Abnormal EKG Code(s): R94.31 - ABNORMAL ELECTROCARDIOGRAM [ECG] [EKG] Status: Acute - Plan Plan: # Tachycardia, Aflutter vs Afib - 2 doses Adenosine OSH - rate in 70s on admit - Stress test shows no irreversible changes - cath negative - TSH, Mag WNL - Discussed anticoagulation with Dr. Nathalia, plan for home on ASA and Eliquis when ready for d/c - Cath last week by Dr. Thomas, recommends EP eval - A flutter over the weekend, despite dronedarone - EP ablation 10/01 - Anticipate d/c later today after EP f/u and d/c recs # Elevated troponin - 0.15 -> 0.38 -> .603 -> .671 -> .785 -> .616 - .328-> .269 on 09/26 - CTA neg for PE at OSH - No Chest pain over the weekend # HTN - home meds - episodes of hypotension during hospitalization, continue to monitor BP, currently normotensive - imdur, lasix, lisinopril 10mg after EP evaluation # HLD - high intesity statin # recent AAA repair 08/30/17 - possible aortic widening on imaging per Dr. Thomas recs CV surgery eval # LUÍS - not on cpap # Seasonal Allergies - Mucinex - Flonase - daily Claritin Dispo: anticipate d/c today pending EP recs
[2017-10-02] MEDS ORDERED: Lisinopril 10 MG TAB PO SCH (09:00)
[2017-10-02] MEDS: Dronedarone HCl 400 MG TAB PO SCH (09:42)
[2017-10-02] MEDS: guaiFENesin ER 600 MG TAB PO SCH (09:42)
[2017-10-02] MEDS: Apixaban 5 MG TAB PO SCH (09:42)
[2017-10-02] MEDS: Fluticasone Propionate Nasal Spray 16 gm Bottle NASAL SCH (09:43)
[2017-10-02] MEDS: Aspirin 81 mg Enteric Coated Tablet PO SCH (09:43)
[2017-10-02] MEDS: Furosemide 40 MG TAB PO SCH (09:43)
--- NOTE | 2017-10-02 12:47 | ADD-PRG ---
ADDENDUM This is an addendum to the note of Dr. Amos Lynn. Mr. Whitmore underwent successful ablation yesterd ay and is currently in normal sinus rhythm. He will be discharged later today on a beta kenny and Eliquis. Clinically, he is stable, cheerful, ready for discharge.
--- NOTE | 2017-10-02 13:50 | CCLSPC ---
ELECTROPHYSIOLOGY STUDY: Date: 10/01/17 REASON FOR PROCEDURE: Mr. Whitmore is a 77-year-old male with history of recent aortic aneurysm repair who presented with new onset atrial flutter transiently converted back to sinus rhythm. He has been anticoagulated. He has had recurrent atrial flutter since. His last episode was yesterday. He is here for evaluation of the atrial arrhythmia and possible ablation. PROCEDURE: The patient received deep sedation by anesthesia specialist. After adequate level of sedation achieved, the left and right femoral veins were anesthetized using subcutaneous lidocaine. The right femoral vein was accessed x2 with ultrasound guidance. Two short 8 Maltese sheaths were introduced. A decapolar CS catheter was advanced to the RV, His bundle, right atrium, and eventually to the CS position. Baseline study was performed, demonstrating shortest post- pacing interval after entrainment at the proximal CS, longer at the lateral CS, suggestive of right atrial flutter circuit origin. Following that, a standard Smart Touch bidirectional catheter was advanced to the right atrium and 3D map of the right atrium was obtained. Radiofrequency ablation of the cavotricuspid isthmus was performed, achieving termination of the atrial flutter. Following that, proximal CS pacing was initiated and further mckenzie were delivered to the cavotricuspid isthmus, achieving increase of the transisthmus time from 30 milliseconds to 180 milliseconds. Block through the cavotricuspid isthmus demonstrated progressively lengthening transisthmus time measured from lateral right atrium to adjacent to the isthmus ablation line. following that, basic EP studies were performed, showing a markedly prolonged sinus node recovery time at 2474 milliseconds, which was corrected to 1774 milliseconds. AV Wenckebach cycle length was 320 milliseconds. VA conduction was not observed. AV node ERP 600/320 milliseconds. No AV node physiology was observed. Burst atrial pacing did not initiate further atrial arrhythmias. Following that, isuprel was administered and the patency of the cavotricuspid isthmus block was rechecked and no induction of the arrhythmia was seen. CONCLUSION: 1. Typical cavotricuspid isthmus dependent atrial flutter detected at baseline. 2. Status post cavotricuspid isthmus ablation, eliminating the atrial flutter. 3. Post ablation markedly prolonged sinus node recovery time suggestive of sinus node being suppressed. 4. No other atrial arrhythmias were induced. PLAN: Resume anticoagulation, if feasible, for a month, and monitor for further arrhythmias. Stop dronaderone. Consider pacing if bradycardic symptoms occur. MTDD
[2017-10-02 16:31] VITALS: BP 146/75; TEMP 98.4
--- NOTE | 2017-10-02 17:13 | PDOC.CTH ---
Cardiology Progress Note - Subjective Pt. seen and eval. no overnight events. Feels good . Maintaining sinus rhythm after flutter ablation. - Objective Vital Signs Temp Pulse Pulse Pulse Resp BP BP 10/02/17 16:00 98.4 F 18 10/02/17 12:00 97.2 F L 82 17 10/02/17 10:12 78 83 116/75 10/02/17 09:43 130/76 10/02/17 08:00 98.4 F 74 18 BP BP Pulse Ox Pulse Ox 10/02/17 16:00 146/75 H 96 10/02/17 12:00 142/76 H 95 10/02/17 10:12 155/89 H 98 10/02/17 09:43 10/02/17 08:00 136/77 96 Weight 259 lb 14.4 oz 10/01/17 10/02/17 10/03/17 06:59 06:59 06:59 Intake Total 1690 1200 240 Output Total 1900 1650 Balance -210 -450 240 - Physical Examination General/Neuro: alert & oriented x3 Neck: carotid US brisk Lungs: CTA Heart: RRR Abdomen: NT/ND - Labs Result Diagrams: 10/01/17 05:04 10/01/17 05:04 Troponin/CKMB CK-MB (CK-2) 1.0 ng/mL (0-6.6) 09/26/17 19:29 Troponin I 0.269 ng/mL (< 0.028) H 09/26/17 19:29 - Assessment/Plan 1. A-flutter. s/p ablation. maintaining NSR. Continue Coreg. Stop Multaq. ready for d/c. F/U with Dr. Thomas in 3-4 weeks. 2. CAD: s/p CABG remote. stable.
--- NOTE | 2017-10-02 19:41 | EKG ---
Test Reason : Blood Pressure : / mmHG Vent. Rate : 066 BPM Atrial Rate : 066 BPM P-R Int : 148 ms QRS Dur : 132 ms QT Int : 430 ms P-R-T Axes : 059 -13 177 degrees QTc Int : 450 ms Normal sinus rhythm Non-specific intra-ventricular conduction block T wave abnormality, consider lateral ischemia Abnormal ECG When compared with ECG of 23-SEP-2017 13:32, (Unconfirmed) Sinus rhythm has replaced Atrial fibrillation Vent. rate has decreased BY 33 BPM T wave inversion now evident in Anterior leads Confirmed by IKER WILLARD (2) on 10/02/2017 7:41:18 PM Referred By: [facility] Confirmed By:IKER WILLARD
--- NOTE | 2017-10-02 20:08 | EKG ---
Test Reason : Blood Pressure : / mmHG Vent. Rate : 063 BPM Atrial Rate : 063 BPM P-R Int : 168 ms QRS Dur : 122 ms QT Int : 440 ms P-R-T Axes : 056 001 213 degrees QTc Int : 450 ms Normal sinus rhythm Non-specific intra-ventricular conduction delay Abnormal ECG When compared with ECG of 24-SEP-2017 07:14, (Unconfirmed) No significant change was found Confirmed by IKER WILLARD (2) on 10/02/2017 8:08:03 PM Referred By: [facility] Confirmed By:IKER WILLARD
--- NOTE | 2017-10-02 20:31 | EKG ---
Test Reason : Blood Pressure : / mmHG Vent. Rate : 085 BPM Atrial Rate : 085 BPM P-R Int : 178 ms QRS Dur : 138 ms QT Int : 400 ms P-R-T Axes : 063 -06 177 degrees QTc Int : 476 ms Normal sinus rhythm Non-specific intra-ventricular conduction block T wave abnormality, consider lateral ischemia Abnormal ECG Confirmed by DR. Parris OWUSU MD (4) on 10/02/2017 8:30:50 PM Referred By: [facility] Confirmed By:DR. Parris OWUSU MD
--- NOTE | 2017-10-02 20:38 | EKG ---
Test Reason : Blood Pressure : / mmHG Vent. Rate : 085 BPM Atrial Rate : 085 BPM P-R Int : 192 ms QRS Dur : 134 ms QT Int : 398 ms P-R-T Axes : 057 000 -37 degrees QTc Int : 473 ms Normal sinus rhythm Non-specific intra-ventricular conduction block Nonspecific T wave abnormality Abnormal ECG When compared with ECG of 01-OCT-2017 16:31, (Unconfirmed) No significant change was found Confirmed by UMER GOULD, . SErma (4) on 10/02/2017 8:38:07 PM Referred By: [facility] Confirmed By:DR. Parris OWUSU MD
--- NOTE | 2017-10-02 23:03 | DIS-2 ---
DATE OF ADMISSION: 09/23/2017 DATE OF DISCHARGE: 10/02/2017 RESIDENT: Dr. Amos Lynn. ADMITTING ATTENDING: Dr. Curt Lorenzo. DISCHARGE ATTENDING: Dr. Yosef Geiger. CONSULTATIONS: Cardiology, Dr. Cazares, Dr. Ziegler, Dr. Thomas; electrophysiology, Dr. Moss. PROCEDURES: Stress test unequivocal, catheterization, no stents, EP ablation. PRIMARY DIAGNOSIS: Atrial flutter. SECONDARY DIAGNOSES: Elevated troponin, hypertension, hyperlipidemia, recent AAA repair, obstructive sleep apnea, seasonal allergies. DISCHARGE MEDICATIONS: Eliquis 5 mg p.o. b.i.d., Coreg 6.25 mg p.o. b.i.d., Lasix 40 mg p.o. daily, lisinopril 10 mg p.o. daily, multivitamin daily, folic acid daily, nitroglycerin as needed, Lipitor a s well as Imdur. DISCONTINUED MEDICATIONS: Plavix, Lovenox, Multaq. HISTORY OF PRESENT ILLNESS AND HOSPITAL COURSE: A 77-year-old male who presented to outside ER after noticing that his heart rate was high when he was checking his blood pressure. He had no shortness of breath, no chest pain, no weakness. He had a pertinent history of two CABG procedures, latest ann ng around 2001 as well as AAA repair in 08/2017. On admission, the EKG was unclear whether this was atrial flutter or atrial fibrillation with RVR. He was evaluated and started on rate control medicat ions. Then, we had a stress test which showed unlikely to be having ischemic event. The patient was rate controlled and then recommended for discharge, but on the afternoon of anticipated discharge da y, the patient had an episode of chest pain. Troponins were negative at that time. The patient had a catheterization which showed no needs for stents. Electrophysiology was consulted and the patient had an ablation procedure. After the ablation procedure, the patient returned to a normal sinus rhyt hm with heart rate in the 80s-90s. DISPOSITION: Stable. DISCHARGE INSTRUCTIONS: 1. Location: Home. 2. Diet: Heart healthy. 3. Activity: As tolerated. 4. Follow up PCP, Dr. Matias, Dr. Thomas, Dr. Moss. Please follow up with EKG at time of patient's visi t to confirm that he is still in sinus rhythm as the patient is being sent home without Multaq after the ablation.
--- NOTE | 2017-10-03 09:12 | PRG ---
DATE OF SERVICE: 10/02/2017 ELECTROPHYSIOLOGY FOLLOWUP NOTE SUBJECTIVE: Mr. Whitmore has done well overnight and his recovery period after his atrial flutter ab lation. He has remained in sinus rhythm. Denies any chest pain, shortness of breath, heart racing, or palpitations. He denies any pain, bruising or bleeding problems at his bilateral femoral groin si debra. He has been up walking in the [place], voiding normally and able to tolerate p.o. intake well. OBJECTIVE: GENERAL: Patient is alert and oriented. NEUROLOGIC: Grossly intact and nonfocal. His gait is stable. NECK: Supple without jugular venous distention. HEENT: His oral mucosa is moist and pink with adequate dentition. HEART: Rate is regularly regular, without murmur, rub or gallop. His PMI is nondisplaced. EXTREMITIES: Warm and dry to touch without clubbing, cyanosis or edema. His bilateral groin sites h ave healed nicely and showed no signs of bleeding or hematoma formation. LUNGS: Clear to auscultation bilaterally. Respirations are even and unlabored. ABDOMEN: Soft and nontender. IMAGING DATA: A 12-lead EKG performed this morning demonstrates normal sinus rhythm at a rate of 85 beats per minute. Intervals 192 milliseconds, QRS 134 milliseconds and QTC is 473 milliseconds. IMPRESSION: 1. Cavotricuspid isthmus-dependent atrial flutter, status post cavotricuspid isthmus ablation on . No documented recurrence on bpm architect. The patient is maintaining sinus mechanism with rates well controlled. 2. Elevated CHADS VASc score of 4 on the basis of age over 75, hypertension, and a history of vascul ar disease. The patient will continue Eliquis 5 mg b.i.d. for stroke prophylaxis without interruptio n for at least one month post-ablation as he is at increased risk for stroke during this time. The p atient is okay to discontinue Multaq as he has maintained sinus rhythm overnight. We see no evidence of recurrence of his arrhythmia. We have not seen atrial fibrillation for this patient. He will fo llow up in 4-6 weeks as an outpatient for routine management, which will be arranged by our [facility] staff. Mr. Whitmore is doing very well and is eagerly anticipating discharge to go home.
== END 2017-10-02 17:28 | disposition home or self-care (01) | DRG 274 ==
LOC: ERS 12:00 → 2NO 16:47
PROVIDERS: ADMIT Family Medicine; ATTEND Family Medicine
PROC: 4A023N7 Measurement of Cardiac Sampling and Pressure, Left Heart, Percutaneous Approach (ICD-10-PCS; 2017-09-28)
PROC: B2111ZZ Fluoroscopy of Multiple Coronary Arteries using Low Osmolar Contrast (ICD-10-PCS; 2017-09-28)
PROC: B2151ZZ Fluoroscopy of Left Heart using Low Osmolar Contrast (ICD-10-PCS; 2017-09-28)
PROC: 4A023FZ Measurement of Cardiac Rhythm, Percutaneous Approach (ICD-10-PCS; principal; 2017-10-01)
PROC: 02583ZZ Destruction of Conduction Mechanism, Percutaneous Approach (ICD-10-PCS; 2017-10-01)
PROC: 4A0234Z Measurement of Cardiac Electrical Activity, Percutaneous Approach (ICD-10-PCS; 2017-10-01)
PROC: 02K83ZZ Map Conduction Mechanism, Percutaneous Approach (ICD-10-PCS; 2017-10-01)
DX: I48.3 Typical atrial flutter (principal); I24.8 Other forms of acute ischemic heart disease; Z95.1 Presence of aortocoronary bypass graft; I10 Essential (primary) hypertension; I48.91 Unspecified atrial fibrillation; I25.10 Atherosclerotic heart disease of native coronary artery without angina pectoris; E78.5 Hyperlipidemia, unspecified; G47.33 Obstructive sleep apnea (adult) (pediatric); J30.2 Other seasonal allergic rhinitis; Z86.79 Personal history of other diseases of the circulatory system
CPT/HCPCS: 36415; 71045; 76942; 78452; 80048; 80053; 82553; 83735; 83880; 84443; 84484; 85025; 85610; 85652; 85730; 93005; 93010; 93017; 93306; 93459; 93567; 93613; 93621; 93623; 93653; 93798; A4216; A9500; C1730; C1769; G8978-GP-CI; G8979-GP-CI; G8980-GP-CI; J0153; J1644; J1650; J2001; J2704

== ENCOUNTER 2017-10-24 12:29 | Outpatient (CLI) | payer MEDICARE ==
[~2017-10-24 12:29] MED LIST: Iopamidol 370 76% 100 ML VIAL ONE
--- NOTE | 2017-10-24 13:48 | CT ---
CTA ABDOMEN AND PELVIS WITH AND WITHOUT CONTRAST: HISTORY: Abdominal aortic aneurysm status post stent graft placement. COMPARISON: 07/25/2017 TECHNIQUE: Multiple contiguous axial images were obtained in a CTA of the abdomen and pelvis with and without co ntrast. Three sagittal and coronal reformats were performed. FINDINGS: There is a stent graft spanning an abdominal aortic aneurysm, from an infrarenal location, down to th e common iliac arteries. This aneurysm measures 6.7 cm in maximum AP and 5.4 cm in maximum transvers e dimensions, on image 84 of 210. There are coils within an accessory left renal artery, which is se en extending much more inferiorly to the more superiorly located main renal arteries. The lower pole of the left kidney does not enhance as much as compared to the upper pole of the left kidney. There is a type II endoleak within the aneurysm sac. This endoleak extends from the region of the takeoff of the renal artery and courses more anteriorly, in a linear fashion, to along the right aspect of t he stent graft. There does not appear to be separation of the stent graft, in the location where the type II endoleak extends superiorly. The liver, gallbladder, adrenal glands, and spleen are unremarkable. There is a 1.2 cm hypodensity i n the head of the pancreas, which is nonspecific. No abdominal or pelvic lymphadenopathy is seen. The large and small bowel are unremarkable. The jazz endix is unremarkable. Degenerative changes are seen in the spine. The visualized inferior thorax and abdominal wall soft t issues are unremarkable. IMPRESSION: 1. The patient is status post stent graft repair of the abdominal aortic aneurysm. There appears to be a type II endoleak, and the aneurysm appears slightly larger than on the prior examination. 2. There are coils in an accessory left renal artery with lack of enhancement of the lower pole of t he left kidney. 3. Small hypodensity in the pancreatic body that could represent a cyst or cystic mass. A follow-up exam in three months is recommended to ensure stability. POS: CECIL
== END 2017-10-24 12:30 | disposition home or self-care (01) ==
LOC: CT 12:29
PROVIDERS: ATTEND Thoracic Surgery (Cardiothoracic Vascular Surgery)
DX: I71.4 Abdominal aortic aneurysm, without rupture (principal); I25.10 Atherosclerotic heart disease of native coronary artery without angina pectoris; N28.89 Other specified disorders of kidney and ureter; Z95.828 Presence of other vascular implants and grafts
CPT/HCPCS: 74174; 82565

== ENCOUNTER 2019-09-21 23:29 | Inpatient (IN) | payer MEDICARE ==
[2019-09-22 00:50] LABS: CKMB 3.2 ng/mL (0-6.6)
[2019-09-22] MEDS ORDERED: Enoxaparin Sodium 80 MG/0.8 ML SYRINGE ONE (02:15)
[2019-09-22] MEDS ORDERED: Enoxaparin Sodium 30 MG/0.3 ML SYRINGE ONE (02:15)
[2019-09-22 03:16] LABS: Troponin I 0.452 ng/mL (< 0.028)
[2019-09-22 04:00] VITALS: BMI 31.8
[2019-09-22] MEDS ORDERED: Nitroglycerin 0.4 MG TAB (25 Tab Bottle) SL PRN ×2 (05:20→12:47)
[2019-09-22] MEDS ORDERED: Ondansetron PF 4 MG/2 ML Vial IVP PRN (05:23)
[2019-09-22] MEDS ORDERED: Calcium Carbonate 500 MG ChewTAB PO PRN (05:23)
[2019-09-22] MEDS ORDERED: Acetaminophen 325 MG TAB PO PRN (05:23)
[2019-09-22] MEDS ORDERED: Ondansetron ODT 4 MG TAB PO PRN (05:23)
[2019-09-22] MEDS ORDERED: cloNIDine 0.1 MG TAB PO PRN (05:26)
[2019-09-22] MEDS ORDERED: Clopidogrel Bisulfate 75 MG TAB PO SCH (05:30)
--- NOTE | 2019-09-22 05:50 | HP ---
PRIMARY AVAYA ENGINEER: Dr. Thomas. PRIMARY CARE PHYSICIAN: [facility]. CHIEF COMPLAINT: Chest discomfort. HISTORY OF PRESENT ILLNESS: The patient is a 79-year-old male with coronary artery disease, status post CABG; hypertension; and obstructive sleep apnea, presented to the emergency room at [facility] with chest discomfort. He was transferred to this facility for hospital admission. The chest discomfort started this evening while he was walking in the garage. It was radiating between his shoulder blades. It was moderate in intensity. He also noticed that his heart rate was in 120s. He had some belching; however, denies any vomiting, syncope, or diaphoresis. He denies any shortness of breath or lower extremity edema. No orthopnea or paroxysmal nocturnal dyspnea reported. He discontinued Plavix 5 days ago due to spinal stimulator surgery on the 28 of September. No cough, fever, chills, or diarrhea reported. PAST MEDICAL HISTORY: 1. Coronary artery disease, status post CABG. 2. Obstructive sleep apnea. 3. Hypertension. 4. GERD. 5. Hypertension. 6. Hyperlipidemia. 7. Degenerative joint disease. 8. Ischemic cardiomyopathy. 9. Obesity with a BMI of 31.9. 10. History of atrial flutter. 11. Peripheral vascular disease. 12. History of nonsustained ventricular tachycardia. PAST SURGICAL HISTORY: 1. CABG with a redo CABG. 2. Abdominal aortic repair in 2018. 3. Coronary stent placement. 4. Multiple cardiac catheterization. 5. Ablation for atrial flutter. 6. Left ankle replacement. 7. Right knee replacement. SOCIAL HISTORY: The patient currently lives at home with his family. He is full code. He makes his own decision with the help of his family. FAMILY HISTORY: Positive for heart disease. CURRENT HOME MEDICATIONS: 1. Aspirin 81 mg daily. 2. Amlodipine 5 mg at bedtime. 3. Vitamin C daily. 4. Lipitor 40 mg q.p.m. 5. Carvedilol 1.56 mg b.i.d. 6. Cetirizine 10 mg at bedtime. 7. Vitamin D at bedtime. 8. Clonidine 0.1 b.i.d. 9. Plavix 75 mg daily. Please note that he discontinued Plavix 5 days ago. 10. Zetia 10 mg daily. 11. Folic acid 0.8 mg at bedtime. 12. Isosorbide mononitrate 30 mg b.i.d. 13. Entresto 2 tablets b.i.d. 14. Coenzyme Q10 100 mg q.p.m. 15. Sublingual nitroglycerin as needed. 16. Lasix 40 mg daily. Medications administered at [facility], 1. Aspirin 324 mg x1. 2. Clonidine 0.1. 3. Lipitor 40 mg x1. 4. Isosorbide mononitrate 30 mg. 5. Amlodipine 5 mg. 6. Cetirizine 10 mg. 7. Please note that the patient received Lovenox 1 mg/kg at this facility. REVIEW OF SYSTEMS: All other review of systems was reviewed and was found negative. PHYSICAL EXAMINATION: VITAL SIGNS: Showed temperature 97.8, respirations of 16, pulse rate of 57, blood pressure of 138/79, O2 saturations 97% on room air. GENERAL: A 79-year-old male, in no apparent distress. Denies any chest discomfort at this time. HEENT: Head, atraumatic and normocephalic. Sclerae anicteric. Moist mucous membranes. No oral lesion. NECK: Supple. No JVD appreciated. No carotid bruit. LUNGS: Clear to auscultation bilaterally with diminished air entry at bilateral bases. No wheezing or rales. HEART: S1, S2 present. Regular rate and rhythm. No rubs or gallops. ABDOMEN: Soft. Obese. Bowel sounds present. No rebound or guarding. No costovertebral angle tenderness. EXTREMITIES: No edema or calf tenderness. NEUROLOGIC: Grossly nonfocal. Moves all 4 extremities. PSYCHIATRIC: Alert, awake, and oriented x3. SKIN: Warm and dry. LYMPH NODES: No palpable lymph nodes in the neck. LABORATORY FINDINGS: Troponin at [facility] was 0.02. Chemistries showed sodium 142, potassium 3.8, chloride 108, bicarb 25, BUN of 21, creatinine 0.7, glucose of 123. Alkaline phosphatase 103, bilirubin 1.3, AST 15, ALT of 16. CBC showed WBC 7.2 with hemoglobin 14.5, hematocrit 42.8, and platelet of 150. Chest x-ray at [facility] was consistent with volume overload. EKG by my review showed sinus bradycardia with the lateral ischemic changes. Repeat troponin at this facility was 0.452 with BNP of 102. Magnesium was normal. IMPRESSION: 1. [id number] myocardial infarction. 2. Coronary artery disease, status post stent as well as coronary artery bypass grafting. 3. Hypertension. 4. Hyperlipidemia. 5. Abdominal aortic aneurysm repair. 6. Obstructive sleep apnea. 7. Seasonal allergy. 8. History of chronic systolic heart failure, on Entresto. 9. Obesity with a BMI of 31.9. 10. Gastroesophageal reflux disease. 11. Ischemic cardiomyopathy. 12. Hypertension. 13. Hyperlipidemia. PLAN: The patient will be monitored on the telemetry unit. He received 1 mg/kg Lovenox. We will continue aspirin. We will restart Plavix. We will discuss with Cardiology, a loading dose of Plavix is needed. Recheck labs on a daily basis. We will keep him n.p.o. for possible cardiac catheterization. Please resume Lovenox if cardiac catheterization is not planned if okay with Cardiology. We will continue isosorbide mononitrate. Continue low-dose beta blockers. Resume Entresto. The patient understands the above plan of care. Job ID: [id number]
[2019-09-22 07:34] LABS: Cardiac Risk 2.9 (Less than 4.5)
[2019-09-22 07:40] LABS: Critical Call Chem Troponin I RESULT DECREASING
[2019-09-22 07:59] LABS: CKMB 3.9 ng/mL (0-6.6)
[2019-09-22] MEDS: Furosemide 40 MG TAB PO SCH (09:12)
[2019-09-22] MEDS: Senokot S 8.6-50 MG TAB PO SCH ×2 (09:12→20:35)
[2019-09-22] MEDS: Ascorbic Acid 500 mg Chewable Tablet PO SCH (09:12)
[2019-09-22] MEDS: cloNIDine 0.1 MG TAB PO SCH ×2 (09:12→20:36)
[2019-09-22] MEDS: Isosorbide Mononitrate (ER) 30 MG TAB PO SCH ×2 (09:12→20:36)
[2019-09-22] MEDS: Ezetimibe 10 MG TAB PO SCH (09:13)
[2019-09-22] MEDS: Famotidine 20 MG TAB PO SCH ×2 (09:13→20:35)
[2019-09-22] MEDS: Aspirin 81 mg Enteric Coated Tablet PO SCH (09:18)
[2019-09-22] MEDS: Carvedilol 3.125 MG TAB PO SCH ×2 (09:19→20:37)
[2019-09-22 10:36] LABS: #Eosinphils 0.4 thou/uL (0.0-0.7); #Lymphocytes 2.1 thou/uL (1.20-3.40); #Monocytes 0.6 thou/uL (0.11-0.59); #Neutrophils 3.2 thou/uL (1.40-6.50); %Basophils 0.8 % (0.0-1.0); %Lymphocytes 33.3 % (21.0-51.0); %Monocytes 8.7 % (0.0-10.0); %Neutrophils 51.3 % (42.0-75.0); Hemoglobin 13.9 g/dL (14.0-18.0); Mean Corpuscular HGB CONC 33.7 g/dL (32.0-36.0); Mean Corpuscular Hemoglobin 32.2 pg (27.0-31.0); Mean Corpuscular Volume 95.3 fL (78.0-98.0); Mean Platelet Volume 7.4 fL (7.4-10.4); Platelet Count 141 thou/uL (130-400); RBC Distribution Width 12.1 % (11.5-14.5); Red Blood Cell (RBC) Count 4.33 mill/uL (4.70-6.10); White Blood Cell (WBC) Count 6.3 thou/uL (4.8-10.8)
[2019-09-22] MEDS ORDERED: Communication Order-Pharmacy FS SCH (10:45)
[2019-09-22] MEDS ORDERED: Lidocaine 1% (PF) 30 ML VIAL ONE (10:50)
[2019-09-22 11:15] LABS: ALT (SGPT) 12 U/L (8-55); AST (SGOT) 16 U/L (5-34); Albumin 3.6 g/dL (3.4-4.8); Alkaline Phosphatase 78 U/L (40-110); Anion Gap 10 mmol/L (10-20); BUN (Urea Nitrogen) 18 mg/dL (8.4-25.7); Bilirubin, Total 1.5 mg/dL (0.2-1.2); Calc. Creatinine Clearance 119 mL/min (70-130); Calcium 8.7 mg/dL (7.8-10.44); Carbon Dioxide 27 mmol/L (23-31); Chloride 106 mmol/L (98-107); Estimated GFR-MDRD Greater than 90; Globulin 2.2 g/dL (2.4-3.5); Glucose 120 mg/dL (83-110); Potassium 3.4 mmol/L (3.5-5.1); Protein, Total 5.8 g/dL (5.8-8.1); Sodium 140 mmol/L (136-145)
[2019-09-22] MEDS ORDERED: Fentanyl 100 MCG/2 ML VIAL ONE (11:35)
[2019-09-22] MEDS ORDERED: Midazolam HCl 2 mg/2 ml Vial ONE (11:35)
--- NOTE | 2019-09-22 11:56 | CON ---
DATE OF CONSULTATION: 09/22/2019 INDICATION FOR CONSULTATION: A 79-year-old patient with history of known coronary artery disease. He has undergone a bypass surgery on 2 different occasions. He has also undergone previously angioplasty and stent placement. He most recent cardiac catheterization was in 2018, it was 2 years ago on 09/23/2017, which showed all [place] vessels to be 100% occluded. He did have a saphenous vein graft to the LAD diagonal, which was a Y-graft, both of this arms remained patent. He had no significant distal disease. The saphenous vein graft to the obtuse marginal branch was patent. He also had a saphenous vein graft to the right coronary artery previously, which was 100% occluded. Ejection fraction was 40% to 45% at that time. He has been treated medically. He has been doing relatively well. He was scheduled to undergo a spine stimulator test to see whether or not he would benefit from having an implantation of a pain stimulator in the spine due to his back pain and he has stopped his Plavix about a week ago. Yesterday, he was in the garage and started to notice some pain between his shoulder blades. He took nitroglycerin and had some relief. He then took a rest and then took a 2nd nitroglycerin and he was still having some discomfort. The pain was still present and he decided to go to the emergency room. On the way to the emergency room, he felt like he had indigestion, needed to burp, and after he burped, he did have some relief, but still had some discomfort. When he arrived in the emergency room, he was evaluated and was sent here for further evaluation and treatment. His original troponin-I was 0.239, has increased up to 0.452, and is back down to 0.353. His LDL level was 53. He has no other significant problems. This morning, he is relatively stable, but still has some mild discomfort. His EKG shows a normal sinus rhythm with some T-wave inversions in I, aVL, V5, and V6, but no acute ST-segment changes were noted. Past medical history, please refer to the notes from 09/17/2019. He was just seen in the clinic on 09/17/2019 for evaluation. He had a preoperative evaluation prior to undergoing his planned stimulator implant. His medications are listed. Past medical history is listed. Review of systems present as well as his physical examination. There were no significant change in physical examination since I last saw him. PHYSICAL EXAMINATION: VITAL SIGNS: His blood pressure is 135/77. Heart rate is 53 and he does have some sinus bradycardia, but no other problems. He is afebrile. Respiratory rate 18. HEENT: Showed the head to be normocephalic and atraumatic. Carotid pulses are present. CHEST: Clear to auscultation without rales, rhonchi, or wheezing. CARDIOVASCULAR: Has a regular rhythm. He has a systolic murmur at the apex about 3/6. He has a history of mitral valve regurgitation and also tricuspid valve regurgitation as well as some aortic valve sclerosis, but this has not been significant. ABDOMEN: Soft and nontender. Positive bowel sounds are present. He has some obesity. EXTREMITIES: No clubbing or cyanosis. He has had a previous ankle surgery and does have some decreased movement in the right ankle, otherwise he seems to be doing relatively well. Pulses are present. SKIN: Dry. NEUROLOGIC: He is fully intact. LABORATORY DATA: There is no CBC performed on the laboratory data, but his last hemoglobin was 13.5 back in 2018. His BUN was 11, creatinine 0.97, and blood sugar was 167. IMPRESSION: 1. Elderly gentleman with history of coronary artery disease, who developed more chest pain after stopping his Plavix. I suggest he undergo cardiac catheterization for definitive evaluation of his coronary artery disease, especially in view of the fact that he is planning upcoming surgery. We will take the patient to the laboratory tester today for evaluation. He has not had any breakfast. I have explained the procedure and the risks to him to include bleeding, infection, possibly myocardial infarction, CVA, renal insufficiency, allergic contrast reaction, even possibility of . He understands and agrees to proceed we will plan for cardiac catheterization as soon as he is able to get to the laboratory tester on schedule. 2. History of hypertension. This is relatively stable at this time. 3. History of cardiomyopathy. Actually, his last ejection fraction in 07/2019 showed ejection fraction about 42% and by catheterization in 2018 ejection fraction was 40% to 45%. 4. He is status post abdominal aortic aneurysm repair, also this was in 2018. This was with an endo graft in 08/2017. 5. History of hyperlipidemia. He will continue his present medications. 6. Dyslipidemia. He will continue his medicines for his cholesterol. 7. Elevated blood sugar. He has not had any recent chemistries except for in the past. We will try to evaluate his chemistries. Most recently, his last blood sugar was 125. This was performed on 07/24. Further care of the patient will be determined after we have re-evaluated his coronary arteries. Job ID: [id number]
[2019-09-22] MEDS ORDERED: Sodium Chloride 0.9% 200 ML IV PRN (12:47)
[2019-09-22] MEDS ORDERED: Acetaminophen/Codeine 30-300mg Tablet PO PRN ×2 (12:47)
[2019-09-22] MEDS ORDERED: Iopamidol 370 76% 100 ML VIAL ONE (13:20)
[2019-09-22] MEDS ORDERED: Iopamidol 370 76% 50 ML VIAL FS ONE (13:20)
[2019-09-22] MEDS ORDERED: Iopamidol-370 76% 500 ML 1 ML ONE (14:56)
[2019-09-22] MEDS ORDERED: Potassium Chloride 20 MEQ TAB PO SCH (16:45)
--- NOTE | 2019-09-22 18:37 | CT ---
CT ANGIOGRAM WITH CONTRAST: History: Chest pain. Comparison: None. FINDINGS: CT angiogram of the chest performed after the intravenous administration of contrast. 3D rendering pr ovided. No proximal or segmental or pulmonary artery defect. Heart size is enlarged. No pericardial effusion. No aortic aneurysm. No mediastinal adenopathy. Either contrast or stones in the left renal collecting system, incompletely evaluated. Lungs are hyperinflated. Atelectasis in both lung bases. No consolidation. No pneumothorax. No signif icant effusion. There is no acute osseous abnormality. IMPRESSION: 1. No pulmonary embolism. 2. No evidence for pneumonia. 3. Mild lung hypoinflation with vascular crowding and atelectatic changes. 4. Retained contrast left renal collecting system, possibly even the right, incompletely evaluated. R ecommend correlation with the recent contrast load. If the patient has not had recent contrast, abdom en and pelvic CT may be beneficial to evaluate for a calculus, although none was seen on the 2018 nasrin dy. 5. Mosaic attenuation of the lungs can be seen with chronic small vessel disease. POS: HOME
[2019-09-22] MEDS ORDERED: Ubidecarenone 50 MG CAP PO SCH (21:00)
[2019-09-22] MEDS ORDERED: Folic Acid 1 MG TAB PO SCH (21:00)
[2019-09-22] MEDS ORDERED: Loratadine 10 MG TAB PO SCH (21:00)
[2019-09-22] MEDS ORDERED: Atorvastatin Calcium 40 MG TAB PO SCH (21:00)
[2019-09-22] MEDS ORDERED: Amlodipine 5 MG TAB PO SCH (21:00)
[2019-09-23 04:31] LABS: #Eosinphils 0.3 thou/uL (0.0-0.7); #Lymphocytes 1.6 thou/uL (1.20-3.40); #Monocytes 0.5 thou/uL (0.11-0.59); #Neutrophils 3.6 thou/uL (1.40-6.50); %Basophils 0.7 % (0.0-1.0); %Eosinophils 4.6 % (0.0-10.0); %Lymphocytes 26.5 % (21.0-51.0); %Monocytes 7.8 % (0.0-10.0); %Neutrophils 60.4 % (42.0-75.0); Hemoglobin 14.7 g/dL (14.0-18.0); Mean Corpuscular HGB CONC 33.3 g/dL (32.0-36.0); Mean Corpuscular Hemoglobin 31.4 pg (27.0-31.0); Mean Corpuscular Volume 94.1 fL (78.0-98.0); Mean Platelet Volume 7.5 fL (7.4-10.4); Platelet Count 160 thou/uL (130-400); RBC Distribution Width 12.2 % (11.5-14.5); Red Blood Cell (RBC) Count 4.69 mill/uL (4.70-6.10)
[2019-09-23 05:06] LABS: ALT (SGPT) 14 U/L (8-55); AST (SGOT) 25 U/L (5-34); Albumin 3.8 g/dL (3.4-4.8); Alkaline Phosphatase 84 U/L (40-110); Anion Gap 14 mmol/L (10-20); BUN (Urea Nitrogen) 17 mg/dL (8.4-25.7); Bilirubin, Total 1.2 mg/dL (0.2-1.2); Calc. Creatinine Clearance 95 mL/min (70-130); Calcium 8.9 mg/dL (7.8-10.44); Carbon Dioxide 23 mmol/L (23-31); Chloride 106 mmol/L (98-107); Estimated GFR-MDRD 71; Globulin 2.9 g/dL (2.4-3.5); Glucose 121 mg/dL (83-110); Potassium 4.2 mmol/L (3.5-5.1); Protein, Total 6.7 g/dL (5.8-8.1); Sodium 139 mmol/L (136-145)
[2019-09-23 08:39] VITALS: TEMP 97.7
[2019-09-23] MEDS: Isosorbide Mononitrate (ER) 30 MG TAB PO SCH (08:40)
[2019-09-23] MEDS: cloNIDine 0.1 MG TAB PO SCH (08:40)
[2019-09-23] MEDS: Aspirin 81 mg Enteric Coated Tablet PO SCH (08:40)
[2019-09-23] MEDS: Senokot S 8.6-50 MG TAB PO SCH (08:40)
[2019-09-23] MEDS: Ezetimibe 10 MG TAB PO SCH (08:40)
[2019-09-23] MEDS: Famotidine 20 MG TAB PO SCH (08:40)
[2019-09-23] MEDS: Furosemide 40 MG TAB PO SCH (08:41)
[2019-09-23] MEDS: Ascorbic Acid 500 mg Chewable Tablet PO SCH (08:41)
[2019-09-23] MEDS: Carvedilol 3.125 MG TAB PO SCH (08:42)
[2019-09-23] MEDS ORDERED: Clopidogrel Bisulfate 75 MG TAB PO SCH (09:00)
[2019-09-23 11:44] VITALS: BP 127/68
--- NOTE | 2019-09-23 14:42 | PDOC.CPN ---
- Subjective Date: 09/23/19 Time: 08:00 Interval history: The pt seen and examined. No overnight events. No cardiac complaints. - Objective Allergies/Adverse Reactions: Allergies Allergy/AdvReac Type Severity Reaction Status Date / Time hydrochlorothiazide Allergy Verified 09/22/19 05:03 Vital Signs & Weight: Vital Signs Temp Pulse Pulse Pulse Resp BP BP 09/23/19 11:21 62 16 09/23/19 10:19 52 L 62 127/68 09/23/19 08:40 133/65 09/23/19 08:00 97.7 F 54 L 18 09/23/19 04:00 97.4 F L 53 L 20 BP BP BP Pulse Ox Pulse Ox Pulse Ox 09/23/19 11:21 138/63 09/23/19 10:19 138/63 96 96 09/23/19 08:40 09/23/19 08:00 139/69 97 09/23/19 04:00 128/71 92 L Weight 248 lb 6.4 oz - Physical Exam General: alert & oriented x3 HEENT: mucus membranes moist Neck: supple neck Cardiac: regular rate and rhythm, S1/S2 Lungs: clear to auscultation Neuro: cranial nerve 2-12 intact Skin: other (Rt Fem site without any drainage or mass to palpitate) - Labs Result Diagrams: 09/23/19 04:04 09/23/19 04:04 Troponin/CKMB CK-MB (CK-2) 3.9 ng/mL (0-6.6) 09/22/19 06:57 Troponin I 0.353 ng/mL (< 0.028) H* 09/22/19 06:57 - Telemetry Sinus rhythms and dysrhythmias: sinus rhythm - Assessment/Plan Assessment/Plan: 1. CP - s/p C with patent grafts; cont. current med 2. CAD with hx of CABG - on Coreg, ASA, and statin; 3. Chronic systolic HF - stable with coreg, Entresto, and Lasix; 4. Typical Aflutter with hx of CTI ablation in 2018 - remains in SR; on Coreg and ASA 81mg qd MAR reviewed * LHC on 09/22/2019 with patent grafts with EF 45-50%, hypokinetic inferior wall and apex
--- NOTE | 2019-09-24 03:49 | DIS ---
DATE OF ADMISSION: 09/22/2019 DATE OF DISCHARGE: 09/23/2019 PRIMARY CARE PROVIDER: Dr. Gee Matias. DISCHARGE DIAGNOSES: 1. [id number]-[id number] myocardial infarction. 2. Hypokalemia. CONDITION OF PATIENT ON THE DAY OF DISCHARGE: Stable. I assessed Mr. Whitmore on the day of discharge. He denies any chest pain or shortness of breath. Vital signs are stable. S1 and S2 are heard, regular. Lungs are clear to auscultation bilaterally. CONSULTATIONS DURING THIS HOSPITALIZATION: Cardiology, Dr. Thomas. DISCHARGE MEDICATIONS: No change was made to his pre-admission home medications as dictated by Dr. Mena in his history and physical note dated 09/22/2019. HOSPITAL COURSE: Mr. Whitmore is a pleasant 79-year-old gentleman who was admitted to [facility] on 09/22/2019, for quh-SE-ycbyowhtb myocardial infarction. Please refer to Dr. Mena's history and physical note dated 09/22/2019, for further details. He was seen by Cardiology Service. He underwent coronary angiography. All [place] vessels are 100% occluded. He had mildly impaired ventricular function with EF of 45% to 50%, inferior and apical hypokinesis. SVG to RCA was occluded in prior catheterization. SVG to LAD was patent and SVG to OM was patent. He has been recommended medical therapy including statin, beta kenny, and JACINTA inhibitor. He has been advised to proceed with proposed surgery as planned. Please note, his Plavix continues to be on hold until it is approved by his surgeon. The patient improved dramatically in terms of his symptoms following admission. He is being discharged home on 09/23/2019. POST ACUTE CARE FOLLOWUP: With primary care provider in 3 days and with Cardiology, Dr. Thomas in 3 to 4 weeks. ACTIVITY: As tolerated. DIET: Heart healthy and low-sodium. DISCHARGE DESTINATION: Home. TIME SPENT: Total amount of time spent coordinating this discharge: 31 minutes. Job ID: [id number]
== END 2019-09-23 12:00 | disposition home or self-care (01) | DRG 281 ==
LOC: ERS 23:29 → 2NO 09-22 01:45
PROVIDERS: ADMIT Internal Medicine; ATTEND Internal Medicine
PROC: 4A023N7 Measurement of Cardiac Sampling and Pressure, Left Heart, Percutaneous Approach (ICD-10-PCS; principal; 2019-09-22)
PROC: B2111ZZ Fluoroscopy of Multiple Coronary Arteries using Low Osmolar Contrast (ICD-10-PCS; 2019-09-22)
PROC: B2131ZZ Fluoroscopy of Multiple Coronary Artery Bypass Grafts using Low Osmolar Contrast (ICD-10-PCS; 2019-09-22)
PROC: B2151ZZ Fluoroscopy of Left Heart using Low Osmolar Contrast (ICD-10-PCS; 2019-09-22)
DX: I21.4 Non-ST elevation (NSTEMI) myocardial infarction (principal); I50.22 Chronic systolic (congestive) heart failure; E87.6 Hypokalemia; Z96.662 Presence of left artificial ankle joint; Z96.651 Presence of right artificial knee joint; I25.10 Atherosclerotic heart disease of native coronary artery without angina pectoris; G47.33 Obstructive sleep apnea (adult) (pediatric); K21.9 Gastro-esophageal reflux disease without esophagitis; E78.5 Hyperlipidemia, unspecified; I25.5 Ischemic cardiomyopathy; E66.9 Obesity, unspecified; I73.9 Peripheral vascular disease, unspecified; J30.2 Other seasonal allergic rhinitis; I11.0 Hypertensive heart disease with heart failure; Z79.899 Other long term (current) drug therapy; Z79.82 Long term (current) use of aspirin; Z79.02 Long term (current) use of antithrombotics/antiplatelets; Z95.1 Presence of aortocoronary bypass graft; Z68.31 Body mass index [BMI] 31.0-31.9, adult; Z95.5 Presence of coronary angioplasty implant and graft
CPT/HCPCS: 36415; 71275; 80053; 80061; 82553; 83735; 83880; 84484; 85025; 85379; 93005; 93306; 93459; 93798; 96372; 99152; C1769; J1644; J1650; J2001; J2250; J3010; Q9967

== ENCOUNTER 2019-12-14 01:44 | Inpatient (IN) | payer MEDICARE ==
[2019-12-14] MEDS ORDERED: Senokot S 8.6-50 MG TAB PO PRN (03:11)
[2019-12-14 03:33] LABS: CKMB 8.3 ng/mL (0-6.6)
[2019-12-14 03:39] LABS: #Eosinphils 0.4 thou/uL (0.0-0.7); #Lymphocytes 2.2 thou/uL (1.20-3.40); #Monocytes 0.5 thou/uL (0.11-0.59); #Neutrophils 3.3 thou/uL (1.40-6.50); %Basophils 0.6 % (0.0-1.0); %Eosinophils 5.5 % (0.0-10.0); %Lymphocytes 34.9 % (21.0-51.0); %Monocytes 7.7 % (0.0-10.0); %Neutrophils 51.3 % (42.0-75.0); Hemoglobin 12.8 g/dL (14.0-18.0); Mean Corpuscular HGB CONC 33.4 g/dL (32.0-36.0); Mean Corpuscular Hemoglobin 32.3 pg (27.0-31.0); Mean Corpuscular Volume 96.8 fL (78.0-98.0); Mean Platelet Volume 7.1 fL (7.4-10.4); Platelet Count 133 thou/uL (130-400); RBC Distribution Width 11.9 % (11.5-14.5); Red Blood Cell (RBC) Count 3.94 mill/uL (4.70-6.10); White Blood Cell (WBC) Count 6.4 thou/uL (4.8-10.8)
[2019-12-14 04:02] LABS: Anion Gap 11 mmol/L (10-20); BUN (Urea Nitrogen) 21 mg/dL (8.4-25.7); Calc. Creatinine Clearance 0 mL/min (70-130); Calcium 8.3 mg/dL (7.8-10.44); Carbon Dioxide 27 mmol/L (23-31); Chloride 108 mmol/L (98-107); Estimated GFR-MDRD 81; Glucose 128 mg/dL (83-110); Potassium 3.5 mmol/L (3.5-5.1); Sodium 142 mmol/L (136-145)
--- NOTE | 2019-12-14 04:23 | HP ---
PRIMARY CARE PHYSICIAN: Dr. Matias, [facility]. CHIEF COMPLAINT: Chest pain. HISTORY OF PRESENT ILLNESS: The patient is a 79-year-old male with the past medical history significant for coronary artery disease, CABG x8, last was in 2001, cardiomyopathy, CHF, hypertension, hyperlipidemia, atrial flutter with an ablation one year ago, obstructive sleep apnea, noncompliant on CPAP, obesity, and degenerative joint disease, who presents for the above complaint. The patient reports that approximately 5:00 this afternoon, while working in his yard, he developed a sudden onset of chest pain. The chest pain was located between the bilateral scapulas of his back and radiated to his chest. He describes it as tightness. It was exacerbated with exertion and relieved by nitroglycerin. He reports some associated heart palpitations and tachycardia. He palpated his pulse and reports heart rate in the 120s. He took two sublingual nitroglycerins, which helped relieve his chest pain and he had his daughter take him to the ER in [place]. The patient reports chronic swelling to his lower extremities. He denies any orthopnea. He denies any cough or wheezing. He denies any nausea, vomiting, or diarrhea. He denies any recent fever or chills. He is scheduled for a stimulator insertion on Sunday, so he has been off his Plavix for the last 5 days. He also reports that this same thing happened to him in September 2019. He was scheduled for the stimulator to be placed and he had to stop his Plavix and he developed chest pain. In the ER in [place], EKG was done, found to be in atrial flutter, left bundle branch block with some PVCs. Initial troponin was 0.78, BNP of 384. Chest x-ray showed some mild fluid volume overload. The patient was given metoprolol 5 mg IV push, which dropped his blood pressure. He was given a bolus of normal saline 250 mL. He was given a full dose aspirin, Zofran, morphine, lovenox 1mg/kg and transferred to the [place] ER. In the [place] ER, second set troponins were ordered. PAST MEDICAL HISTORY: 1. Coronary artery disease. 2. CHF, cardiomyopathy. 3. Hypertension. 4. Hyperlipidemia. 5. Atrial flutter with ablation one year ago. 6. Obstructive sleep apnea, noncompliant on CPAP. 7. Obesity with the BMI of greater than 30. 8. Degenerative joint disease. 9. BPH. PAST SURGICAL HISTORY: 1. Abdominal aortic aneurysm repair in 2018. 2. Coronary artery disease. 3. He had a CABG x8, two times, the last one was in 2001. 4. Right total knee. 5. Left ankle. 6. Hydrocele. SOCIAL HISTORY: The patient lives in [place] with his at home. He ambulates without assist. He was never a smoker. No ETOH or illicit drug use. He did use chewing tobacco. He quit greater than 40 years ago. ALLERGIES: THE PATIENT REPORTS ALLERGY TO HYDROCHLOROTHIAZIDE. HOME MEDICATIONS: Unable to reconcile home medications at bedside. FAMILY HISTORY: Contributory; positive for cardiac disease. REVIEW OF SYSTEMS: All other review of systems are negative unless otherwise noted in the HPI. PHYSICAL EXAMINATION: VITAL SIGNS: Temperature 97.8, blood pressure 91/59, heart rate 65, respirations 19, SpO2 of 97% on room air. Pain 0/10. CONSTITUTIONAL: The patient is alert, oriented to person, place, and time. No acute distress. EYES: PERRLA. Extraocular muscles intact. Sclerae nonicteric. ENT: Nares are patent. Oropharynx is clear. Uvula midline. Moist mucous membranes. NECK: Supple. Trachea midline. No JVD. CARDIOVASCULAR: The patient appears to be in atrial flutter with PVCs, irregular rate and rhythm, 3/6 murmur. No rubs or gallops. RESPIRATORY/CHEST: Respirations are even and nonlabored. Clear to auscultation. No wheezing, rhonchi, or rales. ABDOMEN: Soft, nontender. Active bowel sounds. No rigidity. No guarding. No abdominal bruit auscultated. BACK: Full range of motion. No CVA tenderness. UPPER EXTREMITIES: Bilateral upper extremities; exam is normal. Full range of motion. Palpable pedal and radial pulses. Brisk cap refill. LOWER EXTREMITIES: Lower extremities have 2+ pitting edema. No open lesions. Palpable pedal pulses. Brisk cap refill. NEUROLOGIC: GCS of 15. Able to follow commands. Oriented to person, place, and time. LABORATORY DATA: EKG was done, showed atrial flutter with a left bundle branch block. Troponin was 0.78. BNP 384, magnesium of 2.2. Chest x-ray showed fluid volume overload. Sodium 143, potassium 3.4, chloride 107, CO2 of 26, BUN 23, creatinine 0.99, glucose was 165, calcium 9.1, ALT 18, AST 21, ALP 92, lipase of 26. PT 13.3, INR 1.0. WBC 7.2, hemoglobin 13.6, hematocrit 40.3, and platelets were 137. TSH of 2.95. IMPRESSION AND PLAN: 1. Non-ST elevation myocardial infarction. Admit the patient to the telemetry floor, inpatient status. Expected length of stay greater than two midnights. The patient has an extensive history of coronary artery disease and cardiomyopathy. He presented with similar symptoms after being off his Plavix back in September. The patient's HEART score is 8. On exam, the patient was in no distress. Chest pain was resolved. We will continue aspirin. We will trend troponins. We will continue Lovenox 1 mg/kg. We will continue home dose statin. We will consult Cardiology. 2. Congestive heart failure exacerbation. Chest x-ray showed fluid volume overload. BNP was 384. The patient did have an echo in September 2019, showed an EF of 40% to 45% with some inferior wall hypokinesis and diastolic dysfunction. Upon exam, the patient was in no acute distress and the patient did become hypotensive after receiving metoprolol in the ER in [place]. So for now, we will not diurese. We will maintain n.p.o. status. We will consult Cardiology to perform daily weights and we will fluid restrict and we will consult heart failure clinic and rehab. 3. Atrial flutter and RVR. The patient presented with atrial flutter and RVR and was given metoprolol and is now rate controlled in the 90s to 100s. We will continue quality assurance monitor. The patient is anticoagulated on Lovenox. 4. Coronary artery disease. The patient has an extensive history of CABG with 8-vessel bypass, two separate surgeries, last one was in 2001. 5. Hyperlipidemia. The patient had a fasting lipid panel in September 2019. We will continue home dose statin. 6. History of atrial flutter. 7. Obesity with a BMI of 31.9. 8. Elevated glucose. We will check hemoglobin A1c. 9. Protonix for GI prophylaxis. The patient is anticoagulated on 1 mg/kg Lovenox. 10. The patient is a full code. POA is Marcia Whitmore, his spouse at [phone]. 11. Discussed the case with . Job ID: [id number] [email or web address]
[2019-12-14 05:03] VITALS: BMI 32.3
[2019-12-14] MEDS ORDERED: Enoxaparin Sodium 120 MG/0.8 ML SYRINGE SC SCH (05:30)
[2019-12-14 05:58] LABS: Hemoglobin A1c 6.4 % (4.0-6.0)
[2019-12-14 06:19] LABS: Critical Call Chem Troponin I RESULT DECREASING; Troponin I 1.145 ng/mL (< 0.028)
[2019-12-14] MEDS: Nitroglycerin 0.4 MG TAB (25 Tab Bottle) PO PRN ×2 (06:34→06:42)
[2019-12-14] MEDS ORDERED: Morphine 2 MG/ML SYRINGE SLOW IVP SCH ×2 (08:15→08:45)
[2019-12-14] MEDS ORDERED: Clopidogrel Bisulfate 75 MG TAB PO SCH (09:00)
[2019-12-14] MEDS ORDERED: Carvedilol 6.25 MG TAB PO SCH (09:00)
[2019-12-14 09:51] LABS: Critical Call Chem Troponin I RESULT DECREASING; Troponin I 0.866 ng/mL (< 0.028)
[2019-12-14] MEDS: Aspirin 81 mg Enteric Coated Tablet PO SCH (09:56)
[2019-12-14] MEDS: Carvedilol 3.125 MG TAB PO SCH ×2 (09:57→21:21)
[2019-12-14] MEDS: Pantoprazole 40 MG VIAL IVP SCH (09:58)
[2019-12-14] MEDS: Sodium Chloride 0.9% (PF) 10 ML VIAL FS PRN (09:59)
[2019-12-14] MEDS ORDERED: Potassium Chloride 20 MEQ TAB PO SCH ×2 (10:15→17:00)
[2019-12-14] MEDS ORDERED: Digoxin 0.5 MG/2 ML AMP SLOW IVP SCH (10:15)
[2019-12-14 11:02] LABS: Hemoglobin 13.4 g/dL (14.0-18.0); Platelet Count 130 thou/uL (130-400)
[2019-12-14] MEDS ORDERED: Diltiazem 125 MG in Sodium Chloride 0.9% 100 ML IVPB SCH (11:15)
[2019-12-14 11:19] LABS: Calc. Creatinine Clearance 118 mL/min (70-130); Estimated GFR-MDRD Greater than 90
--- NOTE | 2019-12-14 12:36 | CON ---
DATE OF CONSULTATION: 12/14/2019 INDICATION FOR CONSULTATION: A 79-year-old patient with aoh-VB-wcznrhe elevation myocardial infarction. HISTORY OF PRESENT ILLNESS: This is a very pleasant gentleman I have taken care for many years, who has a history of coronary artery disease. He has undergone angioplasty and stent placement. He has also undergone bypass surgery twice. He underwent cardiac catheterization in September of this year. He was found to have patent saphenous vein graft to the left anterior descending artery, diagonal branch, I believe, obtuse marginal branch and the distal right coronary artery. His ruby vessels are essentially 100% occluded except that he does have a small right ventricular branch which still remains patent but has diffuse disease proximal to the takeoff of this vessel. He has had also an echocardiogram which shows ejection fraction of about 45% to 50%. He has been treated with medical management for his coronary artery disease. He has also needed to undergo a pain stimulator implant and his Plavix was stopped about 5 days ago. He noticed actually about 2 weeks ago, he started having some rapid heart rates, which would come and go. He then did not have any significant shortness of breath, but did note he had occasional chest discomfort and yesterday the day before he started noticing more increased chest discomfort when he was actually at rest, but the heart rate was also beating rapidly. The blood pressure has remained relatively stable through this except sometimes in the morning he said his blood pressure may be elevated. The only change in his medications has been that he has recently started on tamsulosin and also his diuretics were increased due to lower extremity edema and about 5 days ago he stopped taking his Plavix in anticipation of the implant of the stimulator to decrease his pain in his hips and then after about 1 or 2 days after stopping the Plavix, he developed episodes of chest discomfort. His EKG shows also atrial flutter. The heart rate is slightly lower, but it is almost 140 to 150 beats per minute and appears to be atrial flutter, is a very regular rhythm. No discernible P waves, but they most likely are caught up in the QRS complex. He has undergone ablation in the past for atrial flutter about 2 years ago and most likely will need to undergo a repeat ablation and would try to control the heart rate at this time as this is also causing him further ischemia. His cardiac enzymes are positive for vkx-DM-weisirm elevation myocardial infarction and they have actually been trending downward since the patient has been admitted to the hospital. His troponin I on admission was 1.33, decreased to 1.1, and now is down to 0.866 at 8:45 this morning. At this time, he has no chest pain, but he did have some chest pain earlier today, which was relieved by nitroglycerin, but he has been tachycardic with the atrial flutter. At this time, we will control the heart rate and we will continue the nitrates, and I will start him on IV digoxin in order to slow the heart rate down. If this is not successful, then we will need to start on IV diltiazem. His blood pressure is slightly on the low side but should be able to tolerate the medications. PAST MEDICAL HISTORY: Significant for the coronary artery disease as noted above, mild cardiomyopathy, history of atrial flutter with an ablation in [address] Moss. He has had an aortic aneurysm repair by Dr. Mejia in August of 2017. He has had a left knee surgery with a total left ankle arthroplasty in 2012. He has had skin cancers removed. He had knee surgery in 2010. His bypass surgery was in 1985 originally. He had saphenous vein graft to the left anterior descending artery, to a ramus branch, to the 2nd obtuse marginal branch, and to the distal right coronary artery. He underwent angioplasty and stent placement to the mid to distal left anterior descending artery in 1976 with stent placed into the vein graft of the proximal left anterior descending artery. He had a redo CABG in October of 2001 with a CSOTA to the left anterior descending artery, left radial to the distal left anterior descending artery, right greater saphenous vein to the diagonal branch, and right greater saphenous vein to the obtuse marginal branch of left circumflex. This was in 2001. In September of 2019, he showed patent grafts with ejection fraction of 45% to 50%. He had hypokinesis of the anterior wall and apex. He has hypercholesterolemia. He has mild decrease in left ventricular systolic function. He has what appears to be probable diastolic dysfunction. He has had a left arm fracture. He also has sleep apnea. He uses CPAP mask. He has had some history of atrial fibrillation apparently in 2012 and he may have undergone ablation for this, unclear on that exactly. FAMILY HISTORY: Noncontributory. SOCIAL HISTORY: He is a nonsmoker. ALLERGIES: NONE. MEDICATIONS: Include 1. Folic acid 800 mcg tablets once a day. 2. Loratadine 10 mg once a day. 3. Ezetimibe 10 mg a day. 4. Aspirin 81 mg a day. 5. Plavix 75 mg a day, which has been on hold for the last several days, but has now been restarted since the patient was admitted. 6. Amlodipine 5 mg once a day. 7. Coreg 3.125 mg, he was taking half a tablet twice a day. 8. Atorvastatin 40 mg once a day. 9. Furosemide 40 mg once a day until recently he was taking it twice a day for several days and then resumed it back to 40 mg once a day. 10. Nitroglycerin as needed for chest discomfort. 11. Isosorbide mononitrate 30 mg once a day, and then I believe he had increased it up to twice a day. 12. Vitamin C. 13. CoQ10. 14. Vitamin D. 15. Clonidine 0.1 mg as needed. 16. Entresto 97/103 one tab b.i.d. REVIEW OF SYSTEMS: A 12-point review of systems unremarkable except what is noted in the history of present illness. He has had some lower extremity edema recently, but these resolved after increasing the diuretics. He has also complained of chest pains and shortness of breath and hypertension. PHYSICAL EXAMINATION: GENERAL: Reveals a well-developed, well-nourished, very pleasant gentleman who is in no acute distress at this time. He recently was given nitroglycerin and had resolution of his chest discomfort. VITAL SIGNS: Blood pressure is 119/66, heart rate is 130 and is regular. HEENT: Shows the head to be normocephalic and atraumatic. NECK: Carotid pulses are present. There were no bruits. CHEST: Actually clear to auscultation, did not have any significant rales, rhonchi, or wheezing. CARDIOVASCULAR: Reveals a tachycardia, regular rhythm. I cannot hear an S3 nor an S4. He has a soft systolic murmur at the apex and also at the upper sternal border. He has a well-healed midline surgical incision after median sternotomy. ABDOMEN: Obesity with positive bowel sounds. No organomegaly or masses or tenderness were noted. EXTREMITIES: No clubbing, cyanosis, or edema. He has well-healed surgical incision of the left lower extremity after saphenous vein graft retrieval. The right lower extremity has mild edema. Positive pulses present on the right side was normal of his feet. On the left side, the pedal pulse was somewhat decreased. NEUROLOGIC: The patient is fully intact. He has normal strength, normal tone, and mentation is normal. PSYCHOSOCIAL: He was normal. SKIN: Also warm and dry. LABORATORY DATA: Sodium of 142, potassium is 3.5, chloride was 108, and BUN was 21, creatinine 0.9, glucose was 128, calcium was 8.3. As noted above, troponin I was 1.3 when he arrives, now decreased down to 0.866. His hematology shows WBC is 6.4, hemoglobin is 12.8, platelet count 133,000. EKG shows atrial flutter with a rapid ventricular response. IMPRESSION: 1. Atrial flutter with rapid ventricular response. We will add digoxin and also we will add potassium in this gentleman since potassium level slightly low. If we are unable to control the flutter with the digoxin, then we will also start him on diltiazem as long as his blood pressure tolerates. We may need to increase the dose of the beta-blockers. Also, his blood pressure has been somewhat on the low side in the past with increasing the beta-blockers, but we would need to try to increase the dose of the beta-blockers. We will continue his other medications. 2. History of coronary artery disease and also I believe the flutter with his tachycardia has caused the slight bump in his cardiac enzymes and simulating a ljh-UI-nciznra elevation myocardial infarction or type 2 myocardial infarction due to demand ischemia. 3. Coronary artery disease. He has underwent cardiac catheterization in September of this year and bypasses were still patent. At this time, we will continue the medications with his nitrates. We will review his medications again, ensure that he is on nitrates and can also continue to give sublingual nitroglycerin as needed. I believe once the heart rate is under better control, the pain will also be under better control. We will ask Dr. Moss to see the patient tomorrow in consultation. He may need to undergo a repeat ablation of the atrial flutter. We may be able to eventually get the patient off the Plavix in order that he can have his stimulator implanted for his pain. 4. History of hypertension. He is actually on the low side at this time. We will need to continue to adjust the medications. 5. Mild cardiomyopathy. Would continue the Entresto at this time if he is able to tolerate the medication as far as his blood pressure is concerned. 6. Dyslipidemia. We will continue his statin medications. At this time, we will continue to monitor the patient very carefully, but at this time it is most pertinent to slow the heart rate down and to avoid further ischemia. Job ID: [id number]
[2019-12-14] MEDS: Potassium Chloride 20 MEQ TAB PO SCH (17:21)
[2019-12-14] MEDS: Digoxin 0.5 MG/2 ML AMP SLOW IVP SCH ×2 (17:22→21:41)
[2019-12-14] MEDS: Atorvastatin Calcium 40 MG TAB PO SCH (21:21)
[2019-12-14] MEDS: Enoxaparin Sodium 120 MG/0.8 ML SYRINGE SC SCH (21:23)
[2019-12-15] MEDS: Aspirin 81 mg Enteric Coated Tablet PO SCH (08:45)
[2019-12-15] MEDS: Carvedilol 3.125 MG TAB PO SCH ×2 (08:45→20:57)
[2019-12-15] MEDS: Potassium Chloride 20 MEQ TAB PO SCH ×2 (08:46→16:49)
[2019-12-15] MEDS: Acetaminophen 325 MG TAB PO PRN ×2 (08:46→23:48)
[2019-12-15] MEDS: Enoxaparin Sodium 120 MG/0.8 ML SYRINGE SC SCH ×2 (08:47→20:58)
[2019-12-15] MEDS: Pantoprazole 40 MG VIAL IVP SCH (08:49)
[2019-12-15] MEDS ORDERED: Propofol 1,000 MG/100 ML VIAL IV ONE (09:58)
[2019-12-15] MEDS ORDERED: Benzocaine 20% Spray 60 ML CAN ONE ×2 (10:07→14:12)
[2019-12-15] MEDS ORDERED: EPHEDRINE 25 MG/5 ML SYRINGE ONE (11:56)
[2019-12-15] MEDS ORDERED: PROPOFOL 200 MG/20 ML VIAL ONE (11:56)
[2019-12-15] MEDS ORDERED: PHENYLEPHRINE-NS 100 MCG/ML 10 ML SYRINGE ONE (11:56)
--- NOTE | 2019-12-15 12:05 | CON ---
DATE OF CONSULTATION: 12/15/2019 HISTORY OF PRESENT ILLNESS: I am seeing Mr. Whitmore at our [facility] Telemetry Floor as an Electrophysiology recruiting and selection consultant for the following problems; 1. Recurrent atrial arrhythmias: a. History of atrial flutter. b. Status post CTI ablation on 09/21/2017. c. Recurrent atrial flutter, cannot determine wheter atypical or typical - isthmus dependent on presentation with rapid ventricular rate 2. Coronary artery disease: a. Three-vessel disease, status post repeated bypass surgery, most recently in 2001. 3. 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 Reduced LVEF at 40% to 45% on echo 09/22/2019. 4. Peripheral vascular disease: a. Status post aortic abdominal aneurysm endovascular repair on 08/20/2017. 5. Hypertension and hyperlipidemia. 6. History of obstructive sleep apnea, on CPAP. 7. Elevated BMI greater than 30. 8. BPH and degenerative joint disease. ALLERGIES: HYDROCHLOROTHIAZIDE. MEDICATIONS: At home included; 1. Imdur. 2. Lipitor. 3. Coenzyme Q10. 4. Folic acid. 5. Hamilton-3 fatty acid. 6. Vitamin D3. 7. Zyrtec. 8. Aspirin. 9. Vitamin C. 10. Lasix. 11. Nitrostat. 12. Norvasc. 13. Ezetimibe. 14. Entresto. 15. Coreg. 16. Clopidogrel. SUBJECTIVE: Mr. Whitmore is complaining of recurrent chest tightness sensation for the last couple of weeks. This is a new issue for him, and eventually, brought into the ER, was admitted on the , and was noted to have elevated troponin levels. He also had mildly elevated BNP levels. He was noted to be in atrial flutter with rapid rate, 2:1 AV conduction, about 125 beats per minute was seen. He was started on Lovenox and resumed on his Plavix. Dr. Thomas evaluated the patient and IV Cardizem was used to control the ventricular rates. Currently, he is feeling better, but still has ongoing atrial flutter. He has no PND or orthopnea at this time. No stroke-like symptoms. No neurological deficits. No fever, chills, or cough. REVIEW OF SYSTEMS: Rest of 12-point system otherwise unremarkable. PAST HISTORY: As above. SURGICAL HISTORY: Significant for aortic abdominal aneurysm repair in 2018; coronary artery bypass grafting surgery, most recently in 2001; total knee replacement; left ankle surgery, hydrocele repair. SOCIAL HISTORY: The patient lives in [place] with his at home. Ambulates without assistance. He never smoked. Denies EtOH or drug abuse. He did chew tobacco in the past, quit over 40 years ago. FAMILY HISTORY: Significant for coronary artery disease. OBJECTIVE DATA: VITAL SIGNS: Blood pressure is 142/69, heart rate 90, respirations 18, and temperature 98.1 degrees Fahrenheit. GENERAL: Alert and oriented man, with elevated BMI, in no apparent distress. NECK: Supple. Jugular veins are not distended. CHEST: Coarse without crackles. Midsternal scar is noted. HEART: Sounds are irregularly irregular. S1 and S2 are variable. No murmur or gallop. ABDOMEN: Benign. Bowel sounds are positive. EXTREMITIES: Lower extremities without edema, clubbing, or cyanosis. DATABASE: EKG reviewed, reveals atrial flutter with 2:1 AV conduction, left bundle-branch block pattern. Subsequent telemetry strips revealed more better control of atrial flutter with up to 4:1 AV conduction. LABORATORY DATA: White cell count is 6.4, hemoglobin 12.8, platelet count is 133. Sodium 142, potassium 3.5, BUN is 21, creatinine 0.9. Troponin-I is 1.335, 1.14 , and 0.866 consecutively. The BNP was over 300, at 384. Chest x-ray was suggestive of fluid overload on admission. ASSESSMENT AND PLAN: Mr. Whitmore is a 79-year-old man with prior history of coronary and aortic vessel disease, also had recurrent atrial arrhythmias, in the past he had a typical isthmus-dependent atrial flutter, which prompted the CTI ablation in the past. Now, he is back in atrial flutter, which is possibly typical isthmus dependent again in morphology. Ventricular rates are better controlled with IV diltiazem, but the atrial flutter still continues. He has been intermittently on aspirin and Plavix, not fully anticoagulated. We discussed treatment options, MARCO-guided cardioversion would be reasonable to restore sinus rhythm. Recurrence on the other hand is fairly high and may benefit from consideration for an ablation procedure. This could include the ablation of the cavotricuspid isthmus, but possibly pulmonary venous isolation procedure also could be contemplated. He is agreeable to this. I discussed the pros and cons , the rationale for each procedure. He understands the risk of infection, bleeding, tamponade, stroke, and recurrence. Thank you for allowing me to participate in the care of this patient. Job ID: [id number] [id number]
--- NOTE | 2019-12-15 12:59 | PDOC.CPN ---
- Subjective Date: 12/15/19 Time: 13:07 Interval history: The pt seen and examined. No overnight events. No cardiac complaints. Only complaint he has this AM was back pain - Objective Allergies/Adverse Reactions: Allergies Allergy/AdvReac Type Severity Reaction Status Date / Time hydrochlorothiazide Allergy Verified 09/22/19 05:03 Visit Medications: Current Medications Acetaminophen (Tylenol) 650 mg PO Q4H PRN PRN Reason: Headache/Fever/Mild Pain (1-3) Last Admin: 12/15/19 08:46 Dose: 650 mg Aspirin (Ecotrin) 81 mg PO DAILY [facility] Last Admin: 12/15/19 08:45 Dose: 81 mg Atorvastatin Calcium (Lipitor) 40 mg PO QPM [facility] Last Admin: 12/14/19 21:21 Dose: 40 mg Bisacodyl (Dulcolax) 10 mg PO DAILYPRN PRN PRN Reason: Constipation Carvedilol (Coreg) 1.5625 mg PO BID [facility] Last Admin: 12/15/19 08:45 Dose: 1.5625 mg Enoxaparin Sodium (Lovenox) 110 mg SC 0900,2100 [facility] Last Admin: 12/15/19 08:47 Dose: 110 mg Morphine Sulfate (Morphine) 4 mg SLOW IVP Q4H PRN PRN Reason: Chest Pain Nitroglycerin (Nitrostat) 0.4 mg PO Q5MIN PRN PRN Reason: Chest Pain Last Admin: 12/14/19 06:42 Dose: 0.4 mg Pantoprazole Sodium (Protonix) 40 mg IVP DAILY [facility] Last Admin: 12/15/19 08:49 Dose: 40 mg Potassium Chloride (K-Dur) 20 meq PO BID-[facility] Stop: 12/17/19 08:00 Last Admin: 12/15/19 08:46 Dose: 20 meq Senna/Docusate Sodium (Senokot S) 2 tab PO BIDPRN PRN PRN Reason: Constipation Sodium Chloride (Flush - Normal Saline) 10 ml IVF Q12HR PRN PRN Reason: Saline Flush Sodium Chloride (Normal Saline Pf) 10 ml FS PRN PRN PRN Reason: RECONSTITUTION Last Admin: 12/14/19 09:59 Dose: 10 ml Vital Signs & Weight: Vital Signs Temp Pulse Resp BP Pulse Ox 12/15/19 11:44 99.0 F 58 L 18 120/77 97 06/01/20 07:51 98.1 F 90 18 143/69 H 96 12/15/19 05:04 97 12/15/19 04:02 98.0 F 57 L 18 131/69 97 Weight 257 lb - Physical Exam General: alert & oriented x3 HEENT: mucus membranes moist Neck: supple neck Cardiac: irregularly regular Lungs: decreased breath sounds Neuro: cranial nerve 2-12 intact - Labs Result Diagrams: 12/14/19 10:44 12/14/19 10:44 Troponin/CKMB CK-MB (CK-2) 8.3 ng/mL (0-6.6) H* 12/14/19 02:03 Troponin I 0.866 ng/mL (< 0.028) H* 12/14/19 08:42 - Telemetry Supraventricular conduction: atrial flutter - Assessment/Plan Assessment/Plan: 1. Recurrent Aflutter with RVR (s/ CTI in 09/2017) - well controlled HR with Cardizem drip; Lovenox BID; plan for MARCO/DCCV 2. CAD with hx of CABG and s/p LCH in 09/2019 with patent graft with EF 45-50%, hypokinetic inferior wall and apex - 3. Chronic Systolic HF - stable; on Coreg; may resume Entresto once his BP is more stable 4. Ischemic CMY - 5. s/p AAA repair in 08/2017 - 6. HTN - stable 7. HLD - statin 8. Sleep apnea with Cpap MAR reviewed
--- NOTE | 2019-12-15 17:58 | PDOC.HOSPP ---
- Subjective Encounter Date: 12/15/19 Encounter Time: 16:45 Subjective: pt up in bed feels well. - Objective Vital Signs & Weight: Vital Signs (12 hours) Temp Pulse Resp BP Pulse Ox 12/15/19 15:21 99 12/15/19 15:19 97.8 F 65 14 139/76 99 12/15/19 11:44 99.0 F 58 L 18 120/77 97 12/15/19 07:51 98.1 F 90 18 143/69 H 96 Weight Weight 257 lb Result Diagrams: 12/14/19 10:44 12/14/19 10:44 Hospitalist ROS - Review of Systems Respiratory: denies: cough, dry, shortness of breath, hemoptysis, SOB with excertion, pleuritic pain, sputum, wheezing, other Cardiovascular: denies: chest pain, palpitations, orthopnea, paroxysmal noc. dyspnea, edema, light headedness, other Gastrointestinal: denies: nausea, vomiting, abdominal pain, diarrhea, constipation, melena, hematochezia, other - Medication Medications: Active Medications Generic Name Dose Route Start Last Admin Trade Name Freq PRN Reason Stop Dose Admin Acetaminophen 650 mg 12/14/19 03:11 12/15/19 08:46 Tylenol PO 650 mg Q4H PRN Administration Headache/Fever/Mild Pain (1-3) Aspirin 81 mg 12/14/19 09:00 12/15/19 08:45 Ecotrin PO 81 mg DAILY MELISSA Administration Atorvastatin Calcium 40 mg 12/14/19 21:00 12/14/19 21:21 Lipitor PO 40 mg QPM MELISSA Administration Carvedilol 1.5625 mg 12/14/19 09:00 12/15/19 08:45 Coreg PO 1.5625 mg BID MELISSA Administration Enoxaparin Sodium 110 mg 12/14/19 21:00 12/15/19 08:47 Lovenox SC 110 mg 0900,2100 MELISSA Administration Nitroglycerin 0.4 mg 12/14/19 03:06 12/14/19 06:42 Nitrostat PO 0.4 mg Q5MIN PRN Administration Chest Pain Pantoprazole Sodium 40 mg 12/14/19 09:00 12/15/19 08:49 Protonix IVP 40 mg DAILY MELISSA Administration Potassium Chloride 20 meq 12/14/19 17:00 12/15/19 16:49 K-Dur PO 12/17/19 08:00 20 meq BID-WM MELISSA Administration Sodium Chloride 10 ml 12/14/19 03:35 12/14/19 09:59 Normal Saline Pf FS 10 ml PRN PRN Administration RECONSTITUTION - Exam Neck: negative: supple, symmetric, no JVD, no thyromegaly, no lymphadenopathy, no carotid bruit, JVD Heart: negative: RRR, no murmur, no gallops, no rubs, normal peripheral pulses, irregular, diminshed peripheral pulses, murmur present, II/IV, III/IV Respiratory: negative: CTAB, no wheezes, no rales, no ronchi, normal chest expansion, no tachypnea, normal percussion, rales, rhonchi, tachypneic, wheezes Hosp A/P (1) Chest pain Code(s): R07.9 - CHEST PAIN, UNSPECIFIED Status: Acute (2) Atrial flutter Code(s): I48.92 - UNSPECIFIED ATRIAL FLUTTER Status: Acute (3) Elevated troponin Code(s): R74.8 - ABNORMAL LEVELS OF OTHER SERUM ENZYMES Status: Acute (4) HTN (hypertension) Code(s): I10 - ESSENTIAL (PRIMARY) HYPERTENSION Status: Acute (5) LUÍS (obstructive sleep apnea) Code(s): G47.33 - OBSTRUCTIVE SLEEP APNEA (ADULT) (PEDIATRIC) Status: Acute - Plan He is currently rate controlled. will continue AC. pt to undergo DCCV
[2019-12-15] MEDS: Bisacodyl 5 MG TAB PO PRN (20:57)
[2019-12-15] MEDS: Atorvastatin Calcium 40 MG TAB PO SCH (20:57)
[2019-12-15] MEDS: Morphine 4 MG/ML VIAL SLOW IVP PRN (23:53)
[2019-12-16 04:57] LABS: Anion Gap 11 mmol/L (10-20); BUN (Urea Nitrogen) 15 mg/dL (8.4-25.7); Calc. Creatinine Clearance 112 mL/min (70-130); Calcium 8.3 mg/dL (7.8-10.44); Carbon Dioxide 23 mmol/L (23-31); Chloride 108 mmol/L (98-107); Estimated GFR-MDRD 84; Glucose 117 mg/dL (83-110); Magnesium 2.3 mg/dL (1.6-2.6); Potassium 4.2 mmol/L (3.5-5.1); Sodium 138 mmol/L (136-145)
[2019-12-16] MEDS ORDERED: Furosemide 40 MG/4 ML VIAL SLOW IVP SCH (09:00)
--- NOTE | 2019-12-16 09:04 | RAD ---
PORTABLE CHEST: Date: 12/16/2019 HISTORY: Shortness of breath. COMPARISON: 09/26/2017 chest x-ray is the most recent study available. FINDINGS: Heart size is enlarged with postop sternotomy changes. Mild vascular engorgement noted. Slightly incr eased parenchymal lung markings, some of which are felt to be chronic in nature. There is more promin ent density in the right lower lobe. I cannot exclude a coexistent infiltrate. IMPRESSION: Cardiomegaly with mild pulmonary vascular prominence. There are some chronic-appearing lung changes. Questionable early infiltrate in the right base. POS: ZAHRAA
[2019-12-16] MEDS ORDERED: Benzonatate 100 MG CAP PO PRN (09:11)
[2019-12-16] MEDS: Nitroglycerin 0.4 MG TAB (25 Tab Bottle) PO PRN ×3 (09:25→09:35)
[2019-12-16] MEDS: Enoxaparin Sodium 120 MG/0.8 ML SYRINGE SC SCH (09:27)
[2019-12-16] MEDS: Pantoprazole 40 MG VIAL IVP SCH (09:29)
[2019-12-16] MEDS: Sodium Chloride 0.9% (PF) 10 ML VIAL FS PRN (09:30)
[2019-12-16] MEDS: Potassium Chloride 20 MEQ TAB PO SCH ×2 (09:30→16:01)
[2019-12-16] MEDS: Carvedilol 3.125 MG TAB PO SCH ×2 (09:30→20:25)
[2019-12-16] MEDS: Bisacodyl 5 MG TAB PO PRN ×2 (09:31→20:25)
[2019-12-16] MEDS: Aspirin 81 mg Enteric Coated Tablet PO SCH (09:31)
[2019-12-16] MEDS: Morphine 4 MG/ML VIAL SLOW IVP PRN (09:33)
[2019-12-16 10:06] LABS: #Eosinphils 0.1 thou/uL (0.0-0.7); #Lymphocytes 0.7 thou/uL (1.20-3.40); #Monocytes 0.4 thou/uL (0.11-0.59); #Neutrophils 6.7 thou/uL (1.40-6.50); %Basophils 0.1 % (0.0-1.0); %Eosinophils 0.9 % (0.0-10.0); %Lymphocytes 9.3 % (21.0-51.0); %Monocytes 5.3 % (0.0-10.0); %Neutrophils 84.4 % (42.0-75.0); Hemoglobin 12.7 g/dL (14.0-18.0); Mean Corpuscular HGB CONC 34.7 g/dL (32.0-36.0); Mean Corpuscular Hemoglobin 32.9 pg (27.0-31.0); Mean Corpuscular Volume 94.8 fL (78.0-98.0); Mean Platelet Volume 7.8 fL (7.4-10.4); Platelet Count 133 thou/uL (130-400); RBC Distribution Width 11.9 % (11.5-14.5); Red Blood Cell (RBC) Count 3.87 mill/uL (4.70-6.10); White Blood Cell (WBC) Count 7.9 thou/uL (4.8-10.8)
--- NOTE | 2019-12-16 12:56 | PQF ---
DAYAN ZACARIAS NATHALIE MCNAIR [id number] [facility] [id number] CLINICAL DOCUMENTATION IMPROVEMENT CLARIFICATION FORM: ICD-10 Updated PLEASE DO AN ADDENDUM TO THE PROGRESS NOTE WITH ANY DOCUMENTATION UPDATES OR ADDITIONS AND CARRY THROUGH TO DC SUMMARY. THANK YOU. DATE: 12/16/2019 ATTN:DR. OSMAN Please exercise your independent, professional judgment in responding to the clarification form. Clinical indicators are provided on the bottom of this form for your review. Please check appropriate box(s): CONGESTIVE HEART FAILURE: A. ACUITY [ x ] Acute on Chronic [ ] Chronic B. TYPE [ ] Systolic / HFrEF [ ] Diastolic / HFpEF [ x ] Combined Systolic / Diastolic [ ] Other diagnosis [ ] Unable to determine In addition, please specify: Present on Admission (POA): [ ] Yes [x ] No [ ] Unable to determine For continuity of documentation, please document condition throughout progress notes and discharge summary. Thank You. CLINICAL INDICATORS - SIGNS / SYMPTOMS / LABS / RESULTS AND LOCATION IN EMR 12/15 BNP 772.5 12/13 ED REPORT: COMING FROM [facility] FOR CP. A FLUTTER WITH RVR. CHF EXACERBATION AND NSTEMI. ED FINAL PHYSICIAN DX: NSTEMI, CHF 12/13 H&P (DANITA) IMPRESSION AND PLAN: 2). CONGESTIVE HEART FAILURE EXACERBATION. CXR SHOWED FLUID VOLUME OVERLOAD. BNP WAS 384. THE PATIENT DID HAVE AN ECHO IN SEPTEMBER 2019, SHOWED AN EF OF 40% TO 45% WITH SOME INFERIOR WALL HYPOKINESIS AND DIASTOLIC DYSFUNCTION, 12/14 PN (ARATA) A/P: 3). CHRONIC SYSTOLIC HEART FAILURE. RISK HX OF CHF, CARDIOMYOPATHY ( H&P/JOHN) 12/13 TREATMENTS LASIX IV ( 12/15) CARDIOLOGY CONSULT (12/13) THANK YOU! SINDI (This form is maintained as a part of the permanent medical record) 2014 [employer]. All Rights Reserved SABIHA [email or web address]
--- NOTE | 2019-12-16 14:58 | PDOC.EP ---
- Subjective Date: 12/16/19 Time: 14:57 Interval History: Electrophysiology follow-up note for atrial arrhythmia management. Patient feels well after MARCO guided cardioversion yesterday. He wishes to move forward with ablation tomorrow. he voices no cardiac concerns or complaints today and is not having any evident bleeding dyscrasias for the blood thinning medication. - Review of Systems Constitutional: denies: chills, fever, malaise, sweats, weakness Respiratory: denies: cough, shortness of breath, sputum, wheezing Cardiology: denies: chest pain, heart racing, light headedness, palpitations Gastrointestinal: denies: abdominal pain, constipation, diarrhea, nausea, vomitting Musculoskeletal: denies: unstable gait, falls, shoulder pain - Objective Allergies/Adverse Reactions: Allergies Allergy/AdvReac Type Severity Reaction Status Date / Time hydrochlorothiazide Allergy Verified 09/22/19 05:03 Current Medications Acetaminophen (Tylenol) 650 mg PO Q4H PRN PRN Reason: Headache/Fever/Mild Pain (1-3) Last Admin: 12/15/19 23:48 Dose: 650 mg Aspirin (Ecotrin) 81 mg PO DAILY [facility] Last Admin: 12/16/19 09:31 Dose: 81 mg Atorvastatin Calcium (Lipitor) 40 mg PO QPM [facility] Last Admin: 12/15/19 20:57 Dose: 40 mg Benzonatate (Tessalon) 100 mg PO TIDPRN PRN PRN Reason: Cough Last Admin: 12/16/19 09:31 Dose: 100 mg Bisacodyl (Dulcolax) 10 mg PO DAILYPRN PRN PRN Reason: Constipation Last Admin: 12/16/19 09:31 Dose: 10 mg Carvedilol (Coreg) 1.5625 mg PO BID [facility] Last Admin: 12/16/19 09:30 Dose: 1.5625 mg Enoxaparin Sodium (Lovenox) 110 mg SC 0900,2100 [facility] Last Admin: 12/16/19 09:27 Dose: 110 mg Morphine Sulfate (Morphine) 4 mg SLOW IVP Q4H PRN PRN Reason: Chest Pain Last Admin: 12/16/19 09:33 Dose: 4 mg Nitroglycerin (Nitrostat) 0.4 mg PO Q5MIN PRN PRN Reason: Chest Pain Last Admin: 12/16/19 09:35 Dose: 0.4 mg Pantoprazole Sodium (Protonix) 40 mg IVP DAILY MELISSA Last Admin: 12/16/19 09:29 Dose: 40 mg Potassium Chloride (K-Dur) 20 meq PO BID- MELISSA Stop: 12/17/19 08:00 Last Admin: 12/16/19 09:30 Dose: 20 meq Senna/Docusate Sodium (Senokot S) 2 tab PO BIDPRN PRN PRN Reason: Constipation Sodium Chloride (Flush - Normal Saline) 10 ml IVF Q12HR PRN PRN Reason: Saline Flush Sodium Chloride (Normal Saline Pf) 10 ml FS PRN PRN PRN Reason: RECONSTITUTION Last Admin: 12/16/19 09:30 Dose: 10 ml Vital Signs & Weight: Vital Signs Temp Pulse Pulse Pulse Resp BP BP 12/16/19 11:28 98.2 F 88 14 12/16/19 10:30 77 98 138/84 136/89 12/16/19 08:17 12/16/19 07:22 100.4 F H 80 16 12/16/19 06:59 12/16/19 03:32 98.4 F 72 20 BP Pulse Ox Pulse Ox Pulse Ox 12/16/19 11:28 173/80 H 96 12/16/19 10:30 95 96 12/16/19 08:17 93 L 12/16/19 07:22 141/76 H 93 L 12/16/19 06:59 95 12/16/19 03:32 124/70 95 Weight 255 lb 12.8 oz I/O: I/O 12/15/19 12/16/19 12/17/19 06:59 06:59 06:59 Intake Total 480 Output Total 200 Balance 280 - Quality Measures Condition: Atrial Fibrillation/Flutter (hx or current) (lovenox) - Physical Exam General: alert & oriented x3, appears well, no apparent distress, speech clear, affect appropriate HEENT: mucus membranes moist, normocephaly, EOMI Neck: supple neck, no JVD/HJR, no lymphadenopathy Cardiology: regular rate and rhythm, PMI nondisplaced Lungs: clear to auscultation, normal breath sounds, no wheeze, rales, rhonchi Neurology: cranial nerve 2-12 intact, grossly intact, no lateralizing findings Abdomen: unremarkable, active bowel sounds, no pulsations/bruits, HJR negative Extremities: dry, strong pulses, warm - Chadsvasc Risk factors Congestive heart failure: 1 Hypertension: 1 Age >75: 2 Vascular disease: 1 Risk Score: 5 - Labs Result Diagrams: 12/16/19 09:48 12/16/19 04:17 - EKG Interpretation EKG Method: Telemetry EKG shows: Sinus rhythm - Assessment/Plan Assessment/Plan: 1. Recurrent atrial arrhythmias: a. History of atrial flutter. b. Status post CTI ablation on 09/21/2017. c. Recurrent atrial flutter, possibly typical isthmus dependent on presentation with rapid ventricular rate. s/p MARCO with CV 12/14 2. Coronary artery disease: a. Three-vessel disease, status post repeated bypass surgery, most recently in 2001. 3. 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 Reduced LVEF at 40% to 45% on echo 09/22/2019. 4. Peripheral vascular disease: a. Status post aortic abdominal aneurysm endovascular repair on 08/20/2017. 5. Hypertension and hyperlipidemia. 6. History of obstructive sleep apnea, on CPAP. 7. Elevated BMI greater than 30. 8. BPH and degenerative joint disease. We once again discussed potential treatment options for his atrial arrhythmias including watchful waiting, antiarrhythmic therapy or EP study with ablation. At this point he favors EP study with ablation. I will keep him NPO after midnight, hold his Lovenox implant for electrophysiology study with possible ablation in the right and/or left atrium. Risks include hematoma and bleeding at the groin sites, recurrent arrhythmias, stroke, pericardial effusion, need for CV surgery, atrial esophageal fistula, or . Long-term anticoagulation requirements will be addressed pending the findings of the EP study and ablation.
--- NOTE | 2019-12-16 16:53 | PDOC.CPN ---
- Subjective Date: 12/16/19 Time: 08:00 Interval history: The pt seen and examined. No overnight events. No cardiac complaints - Objective Allergies/Adverse Reactions: Allergies Allergy/AdvReac Type Severity Reaction Status Date / Time hydrochlorothiazide Allergy Verified 09/22/19 05:03 Visit Medications: Current Medications Acetaminophen (Tylenol) 650 mg PO Q4H PRN PRN Reason: Headache/Fever/Mild Pain (1-3) Last Admin: 12/15/19 23:48 Dose: 650 mg Aspirin (Ecotrin) 81 mg PO DAILY [facility] Last Admin: 12/16/19 09:31 Dose: 81 mg Atorvastatin Calcium (Lipitor) 40 mg PO QPM [facility] Last Admin: 12/15/19 20:57 Dose: 40 mg Benzonatate (Tessalon) 100 mg PO TIDPRN PRN PRN Reason: Cough Last Admin: 12/16/19 09:31 Dose: 100 mg Bisacodyl (Dulcolax) 10 mg PO DAILYPRN PRN PRN Reason: Constipation Last Admin: 12/16/19 09:31 Dose: 10 mg Carvedilol (Coreg) 1.5625 mg PO BID [facility] Last Admin: 12/16/19 09:30 Dose: 1.5625 mg Enoxaparin Sodium (Lovenox) 110 mg SC 0900,2100 [facility] Last Admin: 12/16/19 09:27 Dose: 110 mg Morphine Sulfate (Morphine) 4 mg SLOW IVP Q4H PRN PRN Reason: Chest Pain Last Admin: 12/16/19 09:33 Dose: 4 mg Nitroglycerin (Nitrostat) 0.4 mg PO Q5MIN PRN PRN Reason: Chest Pain Last Admin: 12/16/19 09:35 Dose: 0.4 mg Pantoprazole Sodium (Protonix) 40 mg IVP DAILY [facility] Last Admin: 12/16/19 09:29 Dose: 40 mg Potassium Chloride (K-Dur) 20 meq PO BID-[facility] Stop: 12/17/19 08:00 Last Admin: 12/16/19 16:01 Dose: 20 meq Senna/Docusate Sodium (Senokot S) 2 tab PO BIDPRN PRN PRN Reason: Constipation Sodium Chloride (Flush - Normal Saline) 10 ml IVF Q12HR PRN PRN Reason: Saline Flush Sodium Chloride (Normal Saline Pf) 10 ml FS PRN PRN PRN Reason: RECONSTITUTION Last Admin: 12/16/19 09:30 Dose: 10 ml Vital Signs & Weight: Vital Signs Temp Pulse Pulse Pulse Resp BP BP 12/16/19 15:00 99.5 F 82 18 12/16/19 11:28 98.2 F 88 14 12/16/19 10:30 77 98 138/84 136/89 12/16/19 08:17 12/16/19 07:22 100.4 F H 80 16 12/16/19 06:59 BP Pulse Ox Pulse Ox Pulse Ox 12/16/19 15:00 147/79 H 94 L 12/16/19 11:28 173/80 H 96 12/16/19 10:30 95 96 12/16/19 08:17 93 L 12/16/19 07:22 141/76 H 93 L 12/16/19 06:59 95 Weight 255 lb 12.8 oz - Physical Exam General: alert & oriented x3 HEENT: mucus membranes moist Neck: supple neck Cardiac: regular rate and rhythm, S1/S2 Lungs: decreased breath sounds Neuro: cranial nerve 2-12 intact Extremities: no edema - Labs Result Diagrams: 12/16/19 09:48 12/16/19 04:17 Troponin/CKMB CK-MB (CK-2) 8.3 ng/mL (0-6.6) H* 12/14/19 02:03 Troponin I 0.866 ng/mL (< 0.028) H* 12/14/19 08:42 - Telemetry Sinus rhythms and dysrhythmias: sinus tachycardia - Assessment/Plan Assessment/Plan: 1. Recurrent Aflutter with RVR (s/p CTI in 09/2017) - s/p MARCO/DCCV on 12/15/2019 ; remains in SR with Cardizem drip; Lovenox BID; Plan for redo AFlutter RFA by Dr Moss tomorrow 2. CAD with hx of CABG and s/p LCH in 09/2019 with patent graft with EF 45-50%, hypokinetic inferior wall and apex - he complained of CP this AM which resolved after he received NTG and morphine; he walked with PT without any cardiac complaints 3. Chronic Systolic HF with EF 40-45% in 09/2019 - stable; on Coreg which will be increased to 3.125mg BID; may resume Entresto once his BP is more stable 4. Ischemic CMY 5. s/p AAA repair in 08/2017 6. HTN - stable 7. HLD - statin 8. Sleep apnea with Cpap MAR reviewed * Echo in 09/2019 with EF 40-45%, grade I dd, inferior wall hypokinesis, mod NATALYA , mild LAE, mild TR and AL Pt. seen and eval. by me.I agree with the A/P by the [employer]. No further CP since earlier today. Maintaining NSR. Chest clear. RRR. For A-flutter ablation tomorrow. jose
[2019-12-16] MEDS: Acetaminophen 325 MG TAB PO PRN (20:25)
[2019-12-16] MEDS: Atorvastatin Calcium 40 MG TAB PO SCH (20:25)
[2019-12-17 04:17] LABS: #Eosinphils 0.1 thou/uL (0.0-0.7); #Lymphocytes 1.1 thou/uL (1.20-3.40); #Monocytes 0.5 thou/uL (0.11-0.59); #Neutrophils 5.1 thou/uL (1.40-6.50); %Basophils 0.3 % (0.0-1.0); %Eosinophils 1.4 % (0.0-10.0); %Lymphocytes 16.4 % (21.0-51.0); %Monocytes 6.7 % (0.0-10.0); %Neutrophils 75.2 % (42.0-75.0); Hemoglobin 12.8 g/dL (14.0-18.0); Mean Corpuscular HGB CONC 35.1 g/dL (32.0-36.0); Mean Corpuscular Hemoglobin 33.5 pg (27.0-31.0); Mean Corpuscular Volume 95.6 fL (78.0-98.0); Mean Platelet Volume 7.6 fL (7.4-10.4); Platelet Count 124 thou/uL (130-400); RBC Distribution Width 12.1 % (11.5-14.5); Red Blood Cell (RBC) Count 3.81 mill/uL (4.70-6.10); White Blood Cell (WBC) Count 6.8 thou/uL (4.8-10.8)
[2019-12-17 04:46] LABS: Anion Gap 13 mmol/L (10-20); BUN (Urea Nitrogen) 16 mg/dL (8.4-25.7); Calc. Creatinine Clearance 107 mL/min (70-130); Calcium 8.5 mg/dL (7.8-10.44); Carbon Dioxide 25 mmol/L (23-31); Chloride 106 mmol/L (98-107); Estimated GFR-MDRD 79; Glucose 108 mg/dL (83-110); Potassium 3.5 mmol/L (3.5-5.1); Sodium 140 mmol/L (136-145)
[2019-12-17] MEDS: Aspirin 81 mg Enteric Coated Tablet PO SCH (05:43)
[2019-12-17] MEDS: Carvedilol 3.125 MG TAB PO SCH ×2 (05:43→20:50)
--- NOTE | 2019-12-17 11:26 | PDOC.CPN ---
- Subjective Date: 12/17/19 Time: 11:26 Interval history: The pt seen and examined. No overnight events. No cardiac complaints. - Objective Allergies/Adverse Reactions: Allergies Allergy/AdvReac Type Severity Reaction Status Date / Time hydrochlorothiazide Allergy Verified 09/22/19 05:03 Visit Medications: Current Medications Acetaminophen (Tylenol) 650 mg PO Q4H PRN PRN Reason: Headache/Fever/Mild Pain (1-3) Last Admin: 12/16/19 20:25 Dose: 650 mg Aspirin (Ecotrin) 81 mg PO DAILY [facility] Last Admin: 12/17/19 05:43 Dose: 81 mg Atorvastatin Calcium (Lipitor) 40 mg PO QPM [facility] Last Admin: 12/16/19 20:25 Dose: 40 mg Benzonatate (Tessalon) 100 mg PO TIDPRN PRN PRN Reason: Cough Last Admin: 12/16/19 09:31 Dose: 100 mg Bisacodyl (Dulcolax) 10 mg PO DAILYPRN PRN PRN Reason: Constipation Last Admin: 12/16/19 20:25 Dose: 10 mg Carvedilol (Coreg) 3.125 mg PO BID [facility] Last Admin: 12/17/19 05:43 Dose: 3.125 mg Enoxaparin Sodium (Lovenox) 110 mg SC 0900,2100 [facility] Last Admin: 12/16/19 09:27 Dose: 110 mg Fluticasone Propionate (Flonase Nasal [place]itt) 1 gm NASAL DAILY [facility] Morphine Sulfate (Morphine) 4 mg SLOW IVP Q4H PRN PRN Reason: Chest Pain Last Admin: 12/16/19 09:33 Dose: 4 mg Nitroglycerin (Nitrostat) 0.4 mg PO Q5MIN PRN PRN Reason: Chest Pain Last Admin: 12/16/19 09:35 Dose: 0.4 mg Pantoprazole Sodium (Protonix) 40 mg IVP DAILY [facility] Last Admin: 12/16/19 09:29 Dose: 40 mg Senna/Docusate Sodium (Senokot S) 2 tab PO BIDPRN PRN PRN Reason: Constipation Sodium Chloride (Flush - Normal Saline) 10 ml IVF Q12HR PRN PRN Reason: Saline Flush Sodium Chloride (Normal Saline Pf) 10 ml FS PRN PRN PRN Reason: RECONSTITUTION Last Admin: 12/16/19 09:30 Dose: 10 ml Vital Signs & Weight: Vital Signs Temp Pulse Resp BP Pulse Ox 12/17/19 07:15 98.3 F 80 18 149/83 H 96 12/17/19 03:38 98.3 F 75 18 136/80 97 12/16/19 23:28 98.3 F Weight 245 lb 11.2 oz - Physical Exam General: alert & oriented x3 HEENT: mucus membranes moist Neck: supple neck Cardiac: regular rate and rhythm, S1/S2 Lungs: decreased breath sounds Neuro: cranial nerve 2-12 intact - Labs Result Diagrams: 12/17/19 03:46 12/17/19 03:46 Troponin/CKMB CK-MB (CK-2) 8.3 ng/mL (0-6.6) H* 12/14/19 02:03 Troponin I 0.866 ng/mL (< 0.028) H* 12/14/19 08:42 - Telemetry Sinus rhythms and dysrhythmias: sinus rhythm - Assessment/Plan Assessment/Plan: 1. Recurrent Aflutter with RVR (s/p CTI in 09/2017) - s/p MARCO/DCCV on 12/15/2019 ; remains in SR with Coreg 3.125mg BID; Lovenox BID; Plan for redo AFlutter RFA by Dr Moss today 2. CAD with hx of CABG and s/p LHC in 09/2019 with patent graft with EF 45-50%, hypokinetic inferior wall and apex - No chest pain or SOB today 3. Chronic Systolic HF with EF 40-45% in 09/2019 - stable; on Coreg 3.125mg BID ; may resume Entresto once his BP is more stable 4. Ischemic CMY 5. s/p AAA repair in 08/2017 6. HTN - stable 7. HLD - statin 8. Sleep apnea with Cpap MAR reviewed * Echo in 09/2019 with EF 40-45%, grade I dd, inferior wall hypokinesis, mod NATALYA , mild LAE, mild TR and OK
[2019-12-17] MEDS ORDERED: EPHEDRINE 25 MG/5 ML SYRINGE ONE (11:29)
[2019-12-17] MEDS ORDERED: Succinylcholine Chloride 20 MG/ML 10 ml SYRINGE FS ONE (11:29)
[2019-12-17] MEDS ORDERED: Lidocaine 1% PF 5 ML VIAL ONE (11:29)
[2019-12-17] MEDS ORDERED: Ondansetron PF 4 MG/2 ML Vial ONE (11:29)
[2019-12-17] MEDS ORDERED: PROPOFOL 200 MG/20 ML VIAL ONE (11:29)
[2019-12-17] MEDS ORDERED: Rocuronium Bromide 10 MG/ML (10ML VIAL) ONE (11:29)
[2019-12-17] MEDS ORDERED: Heparin 10,000 UNITS/1 ML VIAL ONE ×3 (12:04→14:45)
[2019-12-17] MEDS ORDERED: Heparin 25,000 units/D5W 500 ML ONE (12:04)
[2019-12-17] MEDS ORDERED: Fluticasone Propionate Nasal Spray 16 gm Bottle NASAL SCH (12:15)
[2019-12-17] MEDS ORDERED: Rocuronium Bromide 50 MG/5 ML VIAL ONE (12:34)
[2019-12-17] MEDS ORDERED: Fentanyl 100 MCG/2 ML VIAL ONE ×2 (12:34→17:36)
[2019-12-17] MEDS ORDERED: Isoproterenol 0.2 MG/1 ML AMP ONE (14:02)
[2019-12-17] MEDS ORDERED: Protamine Sulfate 50 MG/5 ML VIAL ONE (17:06)
[2019-12-17] MEDS ORDERED: Ketorolac Tromethamine 30 MG/ML VIAL ONE (17:51)
[2019-12-17] MEDS: Potassium Chloride 20 MEQ TAB PO SCH ×2 (18:38→20:51)
[2019-12-17] MEDS: Pantoprazole 40 MG VIAL IVP SCH (18:39)
[2019-12-17] MEDS ORDERED: Ketorolac Tromethamine 30 MG/ML VIAL IVP PRN (18:55)
[2019-12-17] MEDS: Amoxicillin/Potassium Clav 875 MG TAB PO SCH (20:50)
[2019-12-17] MEDS: Sucralfate 1 GM TAB PO SCH ×2 (20:50→21:00)
[2019-12-17] MEDS: Atorvastatin Calcium 40 MG TAB PO SCH (20:50)
[2019-12-17] MEDS: Rivaroxaban 10 MG TAB PO SCH (20:51)
--- NOTE | 2019-12-18 00:33 | OP ---
DATE OF PROCEDURE: 12/17/2019 PROCEDURE PERFORMED: Electrophysiology study and radiofrequency ablation report. REASON FOR PROCEDURE: Mr. Whitmore is a 79-year-old man with prior history of coronary artery disease, bypass grafting surgery, prior history of atrial flutter, status post CTI ablation, has had recurrent atypical atrial flutter and here for ablation. DESCRIPTION OF PROCEDURE: The patient received general anesthesia by Anesthesia specialist. The left and right femoral vein was prepped, draped and accessed using a multipurpose needle under ultrasound guidance. On the left side, an 11-Andorran sheath was introduced through which an intracardiac echocardiogram probe was used to monitor the catheter manipulation, pericardial space and the transseptal procedure. Also from the left femoral vein, a Preface sheath was used to advance a 20-pole duo-Deca catheter into the CS and the right atrial position. On the right side, initially two 8-Andorran short sheaths were introduced through which a ThermoCool SFST catheter was advanced to the right atrium to obtain a 3D map of the right atrium. CS His bundle was delineated. Also activation map of the right atrium was obtained during proximal CS pacing and patency of the previously placed cavotricuspid isthmus ablation line was verified. The transisthmus time was up to 250 milliseconds and longest transisthmus time was seen adjacent to the prior ablation line. Following that, burst atrial pacing induced atrial fibrillation. The two right-sided femoral venous sheaths were exchanged to two SL1 sheaths, which were used to perform a transseptal puncture x2 with help of a powered Puposky needle under intracardiac echo monitoring. Prior to that, IV heparin was initiated in a bolus and a drip fashion, which were periodically adjusted according to the ACT findings to keep ACT over 350 throughout the procedure. Through the SL1 sheath, a ThermoCool SFST and a 20-pole Lasso catheter was advanced to the left atrium. 3D map of the left atrium was obtained. Following that, pulmonary venous isolation was performed successfully. A very small area in the left superior pulmonary vein was difficult to eliminate all signals adjacent to the left atrial appendage. A roof line and an inferior line were also placed to obtain posterior wall isolation and some residual posterior wall conduction was still seen mostly in esophageal areas and the roof and it was difficult to get reliable signal. Throughout the posterior wall manipulation and mckenzie, esophageal temperature probe was adjusted and monitored for overheating. Following that, Isuprel was initiated at 10 mcg per minute over 10 minutes. Any reconnections of the pulmonary veins were re-ablated. Also the ablation catheter was advanced to the left ventricle, and left ventricular pacing was performed and no VA conduction was seen ruling out accessory pathway. Following that, the catheters were removed from the left side. IV heparin was stopped and later reversed with protamine. The cardiac silhouette did not change throughout the procedure and the intracardiac echo probe also revealed no change in the pericardial fat pad. Following that, the long sheaths were exchanged for short sheaths and Vascade closure device was used to obtain hemostasis on all 4 femoral venous access sites. Total of 110 ablation lesion placed at 34 minutes and 16 seconds. CONCLUSION: 1. Inducible atrial fibrillation, but no typical isthmus dependent flutter is inducible. 2. The prior cavotricuspid isthmus ablation line appears to be patent with unidirectional block. 3. Pulmonary venous isolation was performed in all 4 pulmonary veins and partial isolation of posterior wall also obtained. 4. No evidence of accessory pathway. 5. No VA conduction. 6. Normal HV interval at 46 milliseconds and antegrade Wenckebach cycle length was 360 milliseconds noted. PLAN: Resume oral anticoagulation. Monitor for recurrent arrhythmias. Job ID: [id number]
[2019-12-18 04:08] LABS: Hemoglobin 12.9 g/dL (14.0-18.0); Platelet Count 129 thou/uL (130-400)
[2019-12-18] MEDS ORDERED: Furosemide 40 MG/4 ML VIAL SLOW IVP SCH ×3 (07:45→17:15)
[2019-12-18 08:21] LABS: #Eosinphils 0.1 thou/uL (0.0-0.7); #Lymphocytes 0.6 thou/uL (1.20-3.40); #Monocytes 0.5 thou/uL (0.11-0.59); #Neutrophils 8.6 thou/uL (1.40-6.50); %Basophils 0.1 % (0.0-1.0); %Eosinophils 0.5 % (0.0-10.0); %Lymphocytes 5.6 % (21.0-51.0); %Monocytes 5.5 % (0.0-10.0); %Neutrophils 88.2 % (42.0-75.0); Hemoglobin 12.6 g/dL (14.0-18.0); Mean Corpuscular HGB CONC 33.2 g/dL (32.0-36.0); Mean Corpuscular Hemoglobin 32.1 pg (27.0-31.0); Mean Corpuscular Volume 96.5 fL (78.0-98.0); Mean Platelet Volume 7.5 fL (7.4-10.4); Platelet Count 150 thou/uL (130-400); RBC Distribution Width 12.1 % (11.5-14.5); Red Blood Cell (RBC) Count 3.92 mill/uL (4.70-6.10); White Blood Cell (WBC) Count 9.8 thou/uL (4.8-10.8)
[2019-12-18] MEDS: Aspirin 81 mg Enteric Coated Tablet PO SCH (08:21)
[2019-12-18] MEDS: Fluticasone Propionate Nasal Spray 16 gm Bottle NASAL SCH (08:21)
[2019-12-18] MEDS: Sucralfate 1 GM TAB PO SCH ×4 (08:21→20:41)
[2019-12-18] MEDS: Pantoprazole 40 MG VIAL IVP SCH (08:22)
[2019-12-18] MEDS: Amoxicillin/Potassium Clav 875 MG TAB PO SCH ×2 (08:22→20:41)
[2019-12-18] MEDS: Carvedilol 3.125 MG TAB PO SCH (08:22)
[2019-12-18 08:39] LABS: Anion Gap 13 mmol/L (10-20); BUN (Urea Nitrogen) 23 mg/dL (8.4-25.7); Calc. Creatinine Clearance 108 mL/min (70-130); Calcium 8.2 mg/dL (7.8-10.44); Carbon Dioxide 21 mmol/L (23-31); Chloride 110 mmol/L (98-107); Estimated GFR-MDRD 84; Glucose 156 mg/dL (83-110); Potassium 3.6 mmol/L (3.5-5.1); Sodium 140 mmol/L (136-145)
[2019-12-18] MEDS ORDERED: Potassium Chloride 20 MEQ TAB PO SCH (08:58)
[2019-12-18] MEDS ORDERED: Furosemide 40 MG TAB PO PRN (09:00)
[2019-12-18] MEDS: Acetaminophen 325 MG TAB PO PRN (13:36)
--- NOTE | 2019-12-18 15:33 | PDOC.HOSPP ---
- Subjective Encounter Date: 12/16/19 Encounter Time: 10:00 Subjective: pt up in bed complains of sob - Objective Vital Signs & Weight: Vital Signs (12 hours) Temp Pulse Pulse Pulse Resp BP BP 12/18/19 12:47 98.4 F 87 20 12/18/19 10:09 87 96 135/71 146/81 H 12/18/19 07:28 98.8 F 87 22 H 12/18/19 06:57 12/18/19 03:47 98.5 F 85 18 BP Pulse Ox Pulse Ox Pulse Ox Pulse Ox 12/18/19 12:47 134/66 95 12/18/19 10:09 91 L 95 93 L 12/18/19 07:28 139/81 96 12/18/19 06:57 93 L 12/18/19 03:47 158/93 H 93 L Weight Weight 247 lb 4.8 oz I&O: 12/17/19 12/18/19 12/19/19 06:59 06:59 06:59 Intake Total 240 4700 Output Total 800 Balance -560 4700 Result Diagrams: 12/18/19 08:02 12/18/19 08:02 Hospitalist ROS - Review of Systems Respiratory: reports: shortness of breath Cardiovascular: denies: chest pain, palpitations, orthopnea, paroxysmal noc. dyspnea, edema, light headedness, other Gastrointestinal: denies: nausea, vomiting, abdominal pain, diarrhea, constipation, melena, hematochezia, other - Medication Medications: Active Medications Generic Name Dose Route Start Last Admin Trade Name Freq PRN Reason Stop Dose Admin Acetaminophen 650 mg 12/14/19 03:11 12/18/19 13:36 Tylenol PO 650 mg Q4H PRN Administration Headache/Fever/Mild Pain (1-3) Amoxicillin/Clavulanate Potassium 875 mg 12/17/19 21:00 12/18/19 08:22 Augmentin PO 875 mg Q12HR MELISSA Administration Aspirin 81 mg 12/14/19 09:00 12/18/19 08:21 Ecotrin PO 81 mg DAILY MELISSA Administration Atorvastatin Calcium 40 mg 12/14/19 21:00 12/17/19 20:50 Lipitor PO 40 mg QPM MELISSA Administration Benzonatate 100 mg 12/16/19 09:11 12/16/19 09:31 Tessalon PO 100 mg TIDPRN PRN Administration Cough Bisacodyl 10 mg 12/14/19 03:11 12/16/19 20:25 Dulcolax PO 10 mg DAILYPRN PRN Administration Constipation Carvedilol 3.125 mg 12/16/19 21:00 12/18/19 08:22 Coreg PO 3.125 mg BID MELISSA Administration Fluticasone Propionate 0 gm 12/18/19 09:00 12/18/19 08:21 Flonase Nasal [place] NASAL 2 spr DAILY MELISSA Administration Morphine Sulfate 4 mg 12/14/19 08:43 12/16/19 09:33 Morphine SLOW IVP 4 mg Q4H PRN Administration Chest Pain Nitroglycerin 0.4 mg 12/14/19 03:06 12/16/19 09:35 Nitrostat PO 0.4 mg Q5MIN PRN Administration Chest Pain Pantoprazole Sodium 40 mg 12/18/19 09:00 12/18/19 08:22 Protonix PO 01/16/20 09:01 40 mg DAILY MELISSA Administration Rivaroxaban 20 mg 12/17/19 21:00 12/17/19 20:51 Xarelto PO 20 mg HS MELISSA Administration Sucralfate 1 gm 12/17/19 17:00 12/18/19 12:52 Carafate PO 12/31/19 11:31 1 gm ACHS MELISSA Administration - Exam Neck: negative: supple, symmetric, no JVD, no thyromegaly, no lymphadenopathy, no carotid bruit, JVD Heart: negative: RRR, no murmur, no gallops, no rubs, normal peripheral pulses, irregular, diminshed peripheral pulses, murmur present, II/IV, III/IV Respiratory: rales Gastrointestinal: negative: soft, non-tender, non-distended, normal bowel sounds , no palpable masses, no hepatomegaly, no splenomegaly, no bruit, no guarding, no rigidity, tender to palpation, distended, diminished bowl sounds, voluntary guarding Hosp A/P (1) Chest pain Code(s): R07.9 - CHEST PAIN, UNSPECIFIED Status: Acute (2) Atrial flutter Code(s): I48.92 - UNSPECIFIED ATRIAL FLUTTER Status: Acute (3) Elevated troponin Code(s): R74.8 - ABNORMAL LEVELS OF OTHER SERUM ENZYMES Status: Acute (4) HTN (hypertension) Code(s): I10 - ESSENTIAL (PRIMARY) HYPERTENSION Status: Acute (5) LUÍS (obstructive sleep apnea) Code(s): G47.33 - OBSTRUCTIVE SLEEP APNEA (ADULT) (PEDIATRIC) Status: Acute - Plan He is currently rate controlled. will continue AC. pt to undergo DCCV 6/2 pt up in bed complains of sob will get cxr and pt will need lasix.
--- NOTE | 2019-12-18 15:34 | PDOC.HOSPP ---
- Subjective Encounter Date: 12/17/19 Encounter Time: 11:30 Subjective: pt up in bed no complains. He is going for ablation today - Objective Vital Signs & Weight: Vital Signs (12 hours) Temp Pulse Pulse Pulse Resp BP BP 12/18/19 12:47 98.4 F 87 20 12/18/19 10:09 87 96 135/71 146/81 H 12/18/19 07:28 98.8 F 87 22 H 12/18/19 06:57 12/18/19 03:47 98.5 F 85 18 BP Pulse Ox Pulse Ox Pulse Ox Pulse Ox 12/18/19 12:47 134/66 95 12/18/19 10:09 91 L 95 93 L 12/18/19 07:28 139/81 96 12/18/19 06:57 93 L 12/18/19 03:47 158/93 H 93 L Weight Weight 247 lb 4.8 oz I&O: 12/17/19 12/18/19 12/19/19 06:59 06:59 06:59 Intake Total 240 4700 Output Total 800 Balance -560 4700 Result Diagrams: 12/18/19 08:02 12/18/19 08:02 Hospitalist ROS - Review of Systems Respiratory: denies: cough, dry, shortness of breath, hemoptysis, SOB with excertion, pleuritic pain, sputum, wheezing, other Cardiovascular: denies: chest pain, palpitations, orthopnea, paroxysmal noc. dyspnea, edema, light headedness, other Gastrointestinal: denies: nausea, vomiting, abdominal pain, diarrhea, constipation, melena, hematochezia, other - Medication Medications: Active Medications Generic Name Dose Route Start Last Admin Trade Name Freq PRN Reason Stop Dose Admin Acetaminophen 650 mg 12/14/19 03:11 12/18/19 13:36 Tylenol PO 650 mg Q4H PRN Administration Headache/Fever/Mild Pain (1-3) Amoxicillin/Clavulanate Potassium 875 mg 12/17/19 21:00 12/18/19 08:22 Augmentin PO 875 mg Q12HR MELISSA Administration Aspirin 81 mg 12/14/19 09:00 12/18/19 08:21 Ecotrin PO 81 mg DAILY MELISSA Administration Atorvastatin Calcium 40 mg 12/14/19 21:00 12/17/19 20:50 Lipitor PO 40 mg QPM MELISSA Administration Benzonatate 100 mg 12/16/19 09:11 12/16/19 09:31 Tessalon PO 100 mg TIDPRN PRN Administration Cough Bisacodyl 10 mg 12/14/19 03:11 12/16/19 20:25 Dulcolax PO 10 mg DAILYPRN PRN Administration Constipation Carvedilol 3.125 mg 12/16/19 21:00 12/18/19 08:22 Coreg PO 3.125 mg BID MELISSA Administration Fluticasone Propionate 0 gm 12/18/19 09:00 12/18/19 08:21 Flonase Nasal [place] NASAL 2 spr DAILY MELISSA Administration Morphine Sulfate 4 mg 12/14/19 08:43 12/16/19 09:33 Morphine SLOW IVP 4 mg Q4H PRN Administration Chest Pain Nitroglycerin 0.4 mg 12/14/19 03:06 12/16/19 09:35 Nitrostat PO 0.4 mg Q5MIN PRN Administration Chest Pain Pantoprazole Sodium 40 mg 12/18/19 09:00 12/18/19 08:22 Protonix PO 01/16/20 09:01 40 mg DAILY MELISSA Administration Rivaroxaban 20 mg 12/17/19 21:00 12/17/19 20:51 Xarelto PO 20 mg HS MELISSA Administration Sucralfate 1 gm 12/17/19 17:00 12/18/19 12:52 Carafate PO 12/31/19 11:31 1 gm ACHS MELISSA Administration - Exam Neck: negative: supple, symmetric, no JVD, no thyromegaly, no lymphadenopathy, no carotid bruit, JVD Heart: negative: RRR, no murmur, no gallops, no rubs, normal peripheral pulses, irregular, diminshed peripheral pulses, murmur present, II/IV, III/IV Respiratory: negative: CTAB, no wheezes, no rales, no ronchi, normal chest expansion, no tachypnea, normal percussion, rales, rhonchi, tachypneic, wheezes Gastrointestinal: negative: soft, non-tender, non-distended, normal bowel sounds , no palpable masses, no hepatomegaly, no splenomegaly, no bruit, no guarding, no rigidity, tender to palpation, distended, diminished bowl sounds, voluntary guarding Hosp A/P (1) Chest pain Code(s): R07.9 - CHEST PAIN, UNSPECIFIED Status: Acute (2) Atrial flutter Code(s): I48.92 - UNSPECIFIED ATRIAL FLUTTER Status: Acute (3) Elevated troponin Code(s): R74.8 - ABNORMAL LEVELS OF OTHER SERUM ENZYMES Status: Acute (4) HTN (hypertension) Code(s): I10 - ESSENTIAL (PRIMARY) HYPERTENSION Status: Acute (5) LUÍS (obstructive sleep apnea) Code(s): G47.33 - OBSTRUCTIVE SLEEP APNEA (ADULT) (PEDIATRIC) Status: Acute - Plan He is currently rate controlled. will continue AC. pt to undergo DCCV 6/2 pt up in bed complains of sob will get cxr and pt will need lasix. 6/3 pt going for ablation today. will continue current meds.
--- NOTE | 2019-12-18 15:35 | PDOC.HOSPP ---
- Subjective Encounter Date: 12/18/19 Encounter Time: 11:15 Subjective: pt up in bed feels sob - Objective Vital Signs & Weight: Vital Signs (12 hours) Temp Pulse Pulse Pulse Resp BP BP 12/18/19 12:47 98.4 F 87 20 12/18/19 10:09 87 96 135/71 146/81 H 12/18/19 07:28 98.8 F 87 22 H 12/18/19 06:57 12/18/19 03:47 98.5 F 85 18 BP Pulse Ox Pulse Ox Pulse Ox Pulse Ox 12/18/19 12:47 134/66 95 12/18/19 10:09 91 L 95 93 L 12/18/19 07:28 139/81 96 12/18/19 06:57 93 L 12/18/19 03:47 158/93 H 93 L Weight Weight 247 lb 4.8 oz I&O: 12/17/19 12/18/19 12/19/19 06:59 06:59 06:59 Intake Total 240 4700 Output Total 800 Balance -560 4700 Result Diagrams: 12/18/19 08:02 12/18/19 08:02 Hospitalist ROS - Review of Systems Respiratory: reports: shortness of breath Cardiovascular: denies: chest pain, palpitations, orthopnea, paroxysmal noc. dyspnea, edema, light headedness, other Gastrointestinal: denies: nausea, vomiting, abdominal pain, diarrhea, constipation, melena, hematochezia, other Genitourinary: denies: dysuria, frequency, incontinence, hematuria, retention, other - Medication Medications: Active Medications Generic Name Dose Route Start Last Admin Trade Name Julia PRN Reason Stop Dose Admin Acetaminophen 650 mg 12/14/19 03:11 12/18/19 13:36 Tylenol PO 650 mg Q4H PRN Administration Headache/Fever/Mild Pain (1-3) Amoxicillin/Clavulanate Potassium 875 mg 12/17/19 21:00 12/18/19 08:22 Augmentin PO 875 mg Q12HR MELISSA Administration Aspirin 81 mg 12/14/19 09:00 12/18/19 08:21 Ecotrin PO 81 mg DAILY MELISSA Administration Atorvastatin Calcium 40 mg 12/14/19 21:00 12/17/19 20:50 Lipitor PO 40 mg QPM MELISSA Administration Benzonatate 100 mg 12/16/19 09:11 12/16/19 09:31 Tessalon PO 100 mg TIDPRN PRN Administration Cough Bisacodyl 10 mg 12/14/19 03:11 12/16/19 20:25 Dulcolax PO 10 mg DAILYPRN PRN Administration Constipation Carvedilol 3.125 mg 12/16/19 21:00 12/18/19 08:22 Coreg PO 3.125 mg BID MELISSA Administration Fluticasone Propionate 0 gm 12/18/19 09:00 12/18/19 08:21 Flonase Nasal [place] NASAL 2 spr DAILY MELISSA Administration Morphine Sulfate 4 mg 12/14/19 08:43 12/16/19 09:33 Morphine SLOW IVP 4 mg Q4H PRN Administration Chest Pain Nitroglycerin 0.4 mg 12/14/19 03:06 12/16/19 09:35 Nitrostat PO 0.4 mg Q5MIN PRN Administration Chest Pain Pantoprazole Sodium 40 mg 12/18/19 09:00 12/18/19 08:22 Protonix PO 01/16/20 09:01 40 mg DAILY MELISSA Administration Rivaroxaban 20 mg 12/17/19 21:00 12/17/19 20:51 Xarelto PO 20 mg HS MELISSA Administration Sucralfate 1 gm 12/17/19 17:00 12/18/19 12:52 Carafate PO 12/31/19 11:31 1 gm ACHS MELISSA Administration - Exam Neck: negative: supple, symmetric, no JVD, no thyromegaly, no lymphadenopathy, no carotid bruit, JVD Heart: negative: RRR, no murmur, no gallops, no rubs, normal peripheral pulses, irregular, diminshed peripheral pulses, murmur present, II/IV, III/IV Respiratory: negative: CTAB, no wheezes, no rales, no ronchi, normal chest expansion, no tachypnea, normal percussion, rales, rhonchi, tachypneic, wheezes Hosp A/P (1) Chest pain Code(s): R07.9 - CHEST PAIN, UNSPECIFIED Status: Acute (2) Atrial flutter Code(s): I48.92 - UNSPECIFIED ATRIAL FLUTTER Status: Acute (3) Elevated troponin Code(s): R74.8 - ABNORMAL LEVELS OF OTHER SERUM ENZYMES Status: Acute (4) HTN (hypertension) Code(s): I10 - ESSENTIAL (PRIMARY) HYPERTENSION Status: Acute (5) LUÍS (obstructive sleep apnea) Code(s): G47.33 - OBSTRUCTIVE SLEEP APNEA (ADULT) (PEDIATRIC) Status: Acute - Plan He is currently rate controlled. will continue AC. pt to undergo DCCV 6/2 pt up in bed complains of sob will get cxr and pt will need lasix. 6/ pt going for ablation today. will continue current meds. 6/ pt doing well, after lasix he was ambulated and did not drops his oxygen sat. will continue lasix daily
--- NOTE | 2019-12-18 16:06 | PDOC.EP ---
- Subjective Date: 12/18/19 Time: 08:00 Interval History: EP follow-up after electrophysiology study and ablation on 12/17/2019. Patient is experiencing shortness of breath and fluid overload this morning. He was given 40 mg of IV Lasix which has slightly reduced his shortness of breath. He reports he is breathing easier but still experiencing shortness of breath. He is not experiencing chest pain palpitations, heart racing, stroke or stroke- like symptoms. He was started on anticoagulation last night. This morning he had a dark tarry stool but no morena blood was seen - Review of Systems Constitutional: denies: chills, fever, sweats, weakness Respiratory: reports: shortness of breath. denies: cough, sputum, wheezing Cardiology: denies: chest pain, heart racing, light headedness, palpitations Gastrointestinal: reports: melena. denies: abdominal pain, constipation, diarrhea, hematochezia, nausea, vomitting Musculoskeletal: denies: unstable gait, falls, neck pain - Objective Allergies/Adverse Reactions: Allergies Allergy/AdvReac Type Severity Reaction Status Date / Time hydrochlorothiazide Allergy Verified 09/22/19 05:03 Current Medications Acetaminophen (Tylenol) 650 mg PO Q4H PRN PRN Reason: Headache/Fever/Mild Pain (1-3) Last Admin: 12/18/19 13:36 Dose: 650 mg Amoxicillin/Clavulanate Potassium (Augmentin) 875 mg PO Q12HR [facility] Last Admin: 12/18/19 08:22 Dose: 875 mg Aspirin (Ecotrin) 81 mg PO DAILY [facility] Last Admin: 12/18/19 08:21 Dose: 81 mg Atorvastatin Calcium (Lipitor) 40 mg PO QPM [facility] Last Admin: 12/17/19 20:50 Dose: 40 mg Benzonatate (Tessalon) 100 mg PO TIDPRN PRN PRN Reason: Cough Last Admin: 12/16/19 09:31 Dose: 100 mg Bisacodyl (Dulcolax) 10 mg PO DAILYPRN PRN PRN Reason: Constipation Last Admin: 12/16/19 20:25 Dose: 10 mg Carvedilol (Coreg) 3.125 mg PO BID [facility] Last Admin: 12/18/19 08:22 Dose: 3.125 mg Fluticasone Propionate (Flonase Nasal [place]) 0 gm NASAL DAILY [facility] Last Admin: 12/18/19 08:21 Dose: 2 spr Furosemide (Lasix) 40 mg PO DAILY PRN PRN Reason: Edema Ketorolac Tromethamine (Toradol) 30 mg IVP Q6H PRN PRN Reason: Pain Stop: 12/22/19 17:00 Morphine Sulfate (Morphine) 4 mg SLOW IVP Q4H PRN PRN Reason: Chest Pain Last Admin: 12/16/19 09:33 Dose: 4 mg Nitroglycerin (Nitrostat) 0.4 mg PO Q5MIN PRN PRN Reason: Chest Pain Last Admin: 12/16/19 09:35 Dose: 0.4 mg Pantoprazole Sodium (Protonix) 40 mg PO DAILY [facility] Stop: 01/16/20 09:01 Last Admin: 12/18/19 08:22 Dose: 40 mg Rivaroxaban (Xarelto) 20 mg PO HS [facility] Last Admin: 12/17/19 20:51 Dose: 20 mg Senna/Docusate Sodium (Senokot S) 2 tab PO BIDPRN PRN PRN Reason: Constipation Sodium Chloride (Flush - Normal Saline) 10 ml IVF Q12HR PRN PRN Reason: Saline Flush Sodium Chloride (Flush - Normal Saline) 10 ml IVF PRN PRN PRN Reason: Saline Flush Sucralfate (Carafate) 1 gm PO ACHS [facility] Stop: 12/31/19 11:31 Last Admin: 12/18/19 12:52 Dose: 1 gm Vital Signs & Weight: Vital Signs Temp Pulse Pulse Pulse Resp BP BP 12/18/19 12:47 98.4 F 87 20 12/18/19 10:09 87 96 135/71 146/81 H 12/18/19 07:28 98.8 F 87 22 H 12/18/19 06:57 BP Pulse Ox Pulse Ox Pulse Ox Pulse Ox 12/18/19 12:47 134/66 95 12/18/19 10:09 91 L 95 93 L 12/18/19 07:28 139/81 96 12/18/19 06:57 93 L Weight 247 lb 4.8 oz I/O: I/O 12/17/19 12/18/19 12/19/19 06:59 06:59 06:59 Intake Total 240 4700 Output Total 800 Balance -560 4700 - Quality Measures Condition: Atrial Fibrillation/Flutter (hx or current) (lovenox) CV meds: Xarelto: Yes - Physical Exam General: alert & oriented x3, appears well, speech clear, affect appropriate HEENT: mucus membranes moist, normocephaly Neck: supple neck, no lymphadenopathy, JVD/HJR Cardiology: regular rate and rhythm, no murmur, PMI nondisplaced Lungs: no wheezes, no rhonchi, bibasilar rales Neurology: cranial nerve 2-12 intact, grossly intact, no lateralizing findings Abdomen: active bowel sounds, no pulsations/bruits. negative: HJR negative Extremities: dry, strong pulses, warm Skin: groin sites stable - Chadsvasc Risk factors Age >75: 2 Risk Score: 2 - Labs Result Diagrams: 12/18/19 08:02 12/18/19 08:02 - Assessment/Plan Assessment/Plan: 1. Recurrent atrial arrhythmias: a. History of atrial flutter. b. Status post CTI ablation on 09/21/2017. c. Recurrent atrial flutter, possibly typical isthmus dependent on presentation with rapid ventricular rate. s/p MARCO with CV 12/14 2. Coronary artery disease: a. Three-vessel disease, status post repeated bypass surgery, most recently in 2001. 3. 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 Reduced LVEF at 40% to 45% on echo 09/22/2019. 4. Peripheral vascular disease: a. Status post aortic abdominal aneurysm endovascular repair on 08/20/2017. 5. Hypertension and hyperlipidemia. 6. History of obstructive sleep apnea, on CPAP. 7. Elevated BMI greater than 30. 8. BPH and degenerative joint disease Maintaining sinus rhythm overnight and on EKG this morning. He was previously on Lasix at home. He is now receiving diuretics to address his moderate fluid overload. have ordered for potassium replacement this morning and he may take an additional Lasix 40 mg this afternoon if he continues to have shortness of breath. I started Xarelto 20 mg q.p.m. last night and he reports a dark tarry stool this morning. Hemoglobin and hematocrit are stable today. Recheck H/ H in a.m. and screen for occult blood/guaiac. Will reassess in the morning. He is not ready for discharge at this time. Inducible for atrial fibrillation during EP study and received 34 minutes RF energy lesions delivered. He was not inducible for typical atrial flutter and prior CTI flutter ablation line was still established.
--- NOTE | 2019-12-18 16:55 | PDOC.CPN ---
- Subjective Date: 12/18/19 Time: 17:00 Interval history: The pt seen and examined. No overnight events. No cardiac complaints. He stated he can breath much better after receiving Lasix IV 40mg - Objective Allergies/Adverse Reactions: Allergies Allergy/AdvReac Type Severity Reaction Status Date / Time hydrochlorothiazide Allergy Verified 09/22/19 05:03 Visit Medications: Current Medications Acetaminophen (Tylenol) 650 mg PO Q4H PRN PRN Reason: Headache/Fever/Mild Pain (1-3) Last Admin: 12/18/19 13:36 Dose: 650 mg Amoxicillin/Clavulanate Potassium (Augmentin) 875 mg PO Q12HR [facility] Last Admin: 12/18/19 08:22 Dose: 875 mg Aspirin (Ecotrin) 81 mg PO DAILY [facility] Last Admin: 12/18/19 08:21 Dose: 81 mg Atorvastatin Calcium (Lipitor) 40 mg PO QPM [facility] Last Admin: 12/17/19 20:50 Dose: 40 mg Benzonatate (Tessalon) 100 mg PO TIDPRN PRN PRN Reason: Cough Last Admin: 12/16/19 09:31 Dose: 100 mg Bisacodyl (Dulcolax) 10 mg PO DAILYPRN PRN PRN Reason: Constipation Last Admin: 12/16/19 20:25 Dose: 10 mg Fluticasone Propionate (Flonase Nasal [place]) 0 gm NASAL DAILY [facility] Last Admin: 12/18/19 08:21 Dose: 2 spr Furosemide (Lasix) 40 mg PO DAILY PRN PRN Reason: Edema Ketorolac Tromethamine (Toradol) 30 mg IVP Q6H PRN PRN Reason: Pain Stop: 12/22/19 17:00 Morphine Sulfate (Morphine) 4 mg SLOW IVP Q4H PRN PRN Reason: Chest Pain Last Admin: 12/16/19 09:33 Dose: 4 mg Nitroglycerin (Nitrostat) 0.4 mg PO Q5MIN PRN PRN Reason: Chest Pain Last Admin: 12/16/19 09:35 Dose: 0.4 mg Pantoprazole Sodium (Protonix) 40 mg PO DAILY [facility] Stop: 01/16/20 09:01 Last Admin: 12/18/19 08:22 Dose: 40 mg Rivaroxaban (Xarelto) 20 mg PO HS [facility] Last Admin: 12/17/19 20:51 Dose: 20 mg Senna/Docusate Sodium (Senokot S) 2 tab PO BIDPRN PRN PRN Reason: Constipation Sodium Chloride (Flush - Normal Saline) 10 ml IVF Q12HR PRN PRN Reason: Saline Flush Sodium Chloride (Flush - Normal Saline) 10 ml IVF PRN PRN PRN Reason: Saline Flush Sucralfate (Carafate) 1 gm PO ACHS MELISSA Stop: 12/31/19 11:31 Last Admin: 12/18/19 12:52 Dose: 1 gm Vital Signs & Weight: Vital Signs Temp Pulse Pulse Pulse Resp BP BP 12/18/19 16:10 97.8 F 72 18 12/18/19 12:47 98.4 F 87 20 12/18/19 10:09 87 96 135/71 146/81 H 12/18/19 07:28 98.8 F 87 22 H 12/18/19 06:57 BP Pulse Ox Pulse Ox Pulse Ox Pulse Ox 12/18/19 16:10 138/81 95 12/18/19 12:47 134/66 95 12/18/19 10:09 91 L 95 93 L 12/18/19 07:28 139/81 96 12/18/19 06:57 93 L Weight 247 lb 4.8 oz - Physical Exam General: alert & oriented x3 HEENT: mucus membranes moist Neck: supple neck Cardiac: regular rate and rhythm, S1/S2 Lungs: clear to auscultation, decreased breath sounds Neuro: cranial nerve 2-12 intact - Labs Result Diagrams: 12/18/19 08:02 12/18/19 08:02 Troponin/CKMB CK-MB (CK-2) 8.3 ng/mL (0-6.6) H* 12/14/19 02:03 Troponin I 0.866 ng/mL (< 0.028) H* 12/14/19 08:42 - Telemetry Sinus rhythms and dysrhythmias: other (SR with PVCs) - Assessment/Plan Assessment/Plan: 1. Recurrent Aflutter with RVR (s/p CTI in 09/2017) - s/p MARCO/DCCV on 2019 and redo Aflutter RFA on 12/17/2019; remains in SR with Coreg 3.125mg BID, which will be increased to 6.25mg BID; On Xarelto 20mg qd; H&H tomorrow AM for hx of tarry stool x 1 today 2. CAD with hx of CABG and s/p LHC in 09/2019 with patent graft with EF 45-50%, hypokinetic inferior wall and apex - No chest pain or SOB today 3. Chronic Systolic HF with EF 40-45% in 09/2019 - stable; on Lasix and Coreg 3.125mg BID, which will be increased to 6.25mg BID from this PM; may resume Entresto once his BP is more stable 4. Ischemic CMY 5. s/p AAA repair in 08/2017 6. HTN - will increase Coreg to 6.25mg BID from this PM 7. HLD - statin 8. Sleep apnea with Cpap MAR reviewed * Echo in 09/2019 with EF 40-45%, grade I dd, inferior wall hypokinesis, mod NATALYA , mild LAE, mild TR and MA Pt. seen and eval. by me. I agree with the A/P by the TEST TECHNICIAN. He is still a little SOB this afternoon but much better this AM. He feels better since the ablation. Chest: clear. RRR with occ. ectopy. If stable in AM then probably home tomorrow.. jose
[2019-12-18] MEDS: Carvedilol 6.25 MG TAB PO SCH (20:41)
[2019-12-18] MEDS: Atorvastatin Calcium 40 MG TAB PO SCH (20:41)
[2019-12-18] MEDS: Rivaroxaban 10 MG TAB PO SCH (20:41)
[2019-12-19 05:08] LABS: Anion Gap 12 mmol/L (10-20); BUN (Urea Nitrogen) 17 mg/dL (8.4-25.7); Calc. Creatinine Clearance 107 mL/min (70-130); Calcium 8.4 mg/dL (7.8-10.44); Carbon Dioxide 25 mmol/L (23-31); Chloride 107 mmol/L (98-107); Estimated GFR-MDRD 82; Glucose 133 mg/dL (83-110); Magnesium 2.2 mg/dL (1.6-2.6); Potassium 3.3 mmol/L (3.5-5.1); Sodium 141 mmol/L (136-145)
[2019-12-19] MEDS: Amoxicillin/Potassium Clav 875 MG TAB PO SCH ×2 (08:44→20:13)
[2019-12-19] MEDS: Carvedilol 6.25 MG TAB PO SCH ×2 (08:44→20:13)
[2019-12-19] MEDS: Sucralfate 1 GM TAB PO SCH ×4 (08:44→20:13)
[2019-12-19] MEDS: Aspirin 81 mg Enteric Coated Tablet PO SCH (08:44)
[2019-12-19] MEDS: Furosemide 40 MG TAB PO SCH (08:45)
[2019-12-19] MEDS: Fluticasone Propionate Nasal Spray 16 gm Bottle NASAL SCH (08:45)
[2019-12-19] MEDS ORDERED: Potassium Chloride 20 MEQ TAB PO SCH ×2 (09:15→13:00)
[2019-12-19 10:20] LABS: #Eosinphils 0.2 thou/uL (0.0-0.7); #Lymphocytes 1.2 thou/uL (1.20-3.40); #Monocytes 0.6 thou/uL (0.11-0.59); #Neutrophils 6.3 thou/uL (1.40-6.50); %Basophils 0.5 % (0.0-1.0); %Eosinophils 2.6 % (0.0-10.0); %Lymphocytes 14.2 % (21.0-51.0); %Monocytes 7.1 % (0.0-10.0); %Neutrophils 75.6 % (42.0-75.0); Hemoglobin 12.2 g/dL (14.0-18.0); Mean Corpuscular HGB CONC 35.1 g/dL (32.0-36.0); Mean Corpuscular Hemoglobin 33.2 pg (27.0-31.0); Mean Corpuscular Volume 94.6 fL (78.0-98.0); Mean Platelet Volume 7.3 fL (7.4-10.4); Platelet Count 167 thou/uL (130-400); Red Blood Cell (RBC) Count 3.68 mill/uL (4.70-6.10); White Blood Cell (WBC) Count 8.3 thou/uL (4.8-10.8)
--- NOTE | 2019-12-19 10:54 | PDOC.EP ---
- Subjective Date: 12/19/19 Time: 10:52 Interval History: Breathing much easier today and feels ready to DC home. - Review of Systems Respiratory: reports: shortness of breath. denies: cough, sputum, wheezing Cardiology: denies: chest pain, heart racing, light headedness, palpitations, passing out Gastrointestinal: denies: abdominal pain, constipation, diarrhea Musculoskeletal: denies: unstable gait, falls, neck pain - Objective Allergies/Adverse Reactions: Allergies Allergy/AdvReac Type Severity Reaction Status Date / Time hydrochlorothiazide Allergy Verified 09/22/19 05:03 Current Medications Acetaminophen (Tylenol) 650 mg PO Q4H PRN PRN Reason: Headache/Fever/Mild Pain (1-3) Last Admin: 12/18/19 13:36 Dose: 650 mg Amoxicillin/Clavulanate Potassium (Augmentin) 875 mg PO Q12HR [facility] Last Admin: 12/19/19 08:44 Dose: 875 mg Aspirin (Ecotrin) 81 mg PO DAILY [facility] Last Admin: 12/19/19 08:44 Dose: 81 mg Atorvastatin Calcium (Lipitor) 40 mg PO QPM [facility] Last Admin: 12/18/19 20:41 Dose: 40 mg Benzonatate (Tessalon) 100 mg PO TIDPRN PRN PRN Reason: Cough Last Admin: 12/16/19 09:31 Dose: 100 mg Bisacodyl (Dulcolax) 10 mg PO DAILYPRN PRN PRN Reason: Constipation Last Admin: 12/16/19 20:25 Dose: 10 mg Carvedilol (Coreg) 6.25 mg PO BID [facility] Last Admin: 12/19/19 08:44 Dose: 6.25 mg Fluticasone Propionate (Flonase Nasal [place]) 0 gm NASAL DAILY [facility] Last Admin: 12/19/19 08:45 Dose: 1 spr Furosemide (Lasix) 40 mg PO DAILY PRN PRN Reason: Edema Furosemide (Lasix) 40 mg PO DAILY-AC [facility] Last Admin: 12/19/19 08:45 Dose: 40 mg Ketorolac Tromethamine (Toradol) 30 mg IVP Q6H PRN PRN Reason: Pain Stop: 12/22/19 17:00 Morphine Sulfate (Morphine) 4 mg SLOW IVP Q4H PRN PRN Reason: Chest Pain Last Admin: 12/16/19 09:33 Dose: 4 mg Nitroglycerin (Nitrostat) 0.4 mg PO Q5MIN PRN PRN Reason: Chest Pain Last Admin: 12/16/19 09:35 Dose: 0.4 mg Pantoprazole Sodium (Protonix) 40 mg PO DAILY [facility] Stop: 01/16/20 09:01 Last Admin: 12/19/19 08:44 Dose: 40 mg Potassium Chloride (K-Dur) 40 meq PO NOW [facility] Stop: 12/19/19 11:15 Last Admin: 12/19/19 10:28 Dose: 40 meq Rivaroxaban (Xarelto) 20 mg PO HS [facility] Last Admin: 12/18/19 20:41 Dose: 20 mg Sacubitril/Valsartan (Entresto 24 Mg-26 Mg Tablet) 1 tab PO BID MELISSA Sacubitril/Valsartan (Entresto 24 Mg-26 Mg Tablet) 1 tab PO NOW [facility] Stop: 12/19/19 12:00 Last Admin: 12/19/19 10:28 Dose: 1 tab Senna/Docusate Sodium (Senokot S) 2 tab PO BIDPRN PRN PRN Reason: Constipation Sodium Chloride (Flush - Normal Saline) 10 ml IVF Q12HR PRN PRN Reason: Saline Flush Last Admin: 12/19/19 08:45 Dose: 10 ml Sodium Chloride (Flush - Normal Saline) 10 ml IVF PRN PRN PRN Reason: Saline Flush Sucralfate (Carafate) 1 gm PO ACHS [facility] Stop: 12/31/19 11:31 Last Admin: 12/19/19 08:44 Dose: 1 gm Vital Signs & Weight: Vital Signs Temp Pulse Pulse Pulse Resp BP BP 12/19/19 09:06 80 78 177/79 H 12/19/19 08:44 136/87 12/19/19 08:00 98.4 F 87 24 H 12/19/19 03:41 98.2 F 60 18 12/19/19 00:16 82 BP BP Pulse Ox Pulse Ox Pulse Ox 12/19/19 09:06 137/79 96 96 12/19/19 08:44 12/19/19 08:00 136/87 95 12/19/19 03:41 133/70 93 L 12/19/19 00:16 Weight 242 lb 8 oz I/O: I/O 12/18/19 12/19/19 12/20/19 06:59 06:59 06:59 Intake Total 4700 1200 Output Total 2024 Balance 4700 -825 - Quality Measures Condition: Atrial Fibrillation/Flutter (hx or current) (lovenox) CV meds: Xarelto: Yes - Physical Exam General: alert & oriented x3, appears well, no apparent distress, speech clear HEENT: mucus membranes moist, normocephaly, EOMI Neck: supple neck, midline trachea, no lymphadenopathy, JVD/HJR Cardiology: regular rate and rhythm, PMI nondisplaced Lungs: no wheezes, no rhonchi, bibasilar rales Neurology: cranial nerve 2-12 intact, grossly intact, no lateralizing findings Abdomen: unremarkable, active bowel sounds, no pulsations/bruits Extremities: dry, strong pulses, warm Skin: groin sites stable - Labs Result Diagrams: 12/19/19 09:54 12/19/19 04:28 - EKG Interpretation EKG Method: Telemetry EKG shows: Sinus rhythm (frequent PVCs) - Assessment/Plan Assessment/Plan: 1. Recurrent atrial arrhythmias: a. History of atrial flutter. b. Status post CTI ablation on 09/21/2017. c. Recurrent atrial flutter, possibly typical isthmus dependent on presentation with rapid ventricular rate. s/p MARCO with CV 12/14 d. PVAI 12/18/19, 34 minutes 2. Coronary artery disease: a. Three-vessel disease, status post repeated bypass surgery, most recently in 2001. 3. 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 Reduced LVEF at 40% to 45% on echo 09/22/2019. 4. Peripheral vascular disease: a. Status post aortic abdominal aneurysm endovascular repair on 08/20/2017. 5. Hypertension and hyperlipidemia. 6. History of obstructive sleep apnea, on CPAP. 7. Elevated BMI greater than 30. 8. BPH and degenerative joint disease No recurrent atrial fibrillation is seen but patient still appears to be in mild fluid overload. He is having frequent PVCs starting post PVAI, possibly related to his fluid overload as the burden has been subsiding over the past 24 hrs. Occasional PVC couplets and triplets are seen. I would like to know his EF from his MARCO this past bernabe. It did appear depressed, as visualized on ICE , during his ablation. If his EF is low I would like him to be fitted for a lifevest, especially in light of his PVC burden. For now, I recommend titrating his Coreg up. He may eventually need amiodarone if PVCs do not settle down. He seen to have a left bundle-branch block. If his ejection fraction continues to decline he may eventually require biventricular pacing support possibly with defibrillator.
--- NOTE | 2019-12-19 11:16 | PDOC.CPN ---
- Subjective Date: 12/19/19 Time: 11:38 Interval history: The pt seen and examined. No overnight events. No cardiac complaints. No SOB with walking today - Objective Allergies/Adverse Reactions: Allergies Allergy/AdvReac Type Severity Reaction Status Date / Time hydrochlorothiazide Allergy Verified 09/22/19 05:03 Visit Medications: Current Medications Acetaminophen (Tylenol) 650 mg PO Q4H PRN PRN Reason: Headache/Fever/Mild Pain (1-3) Last Admin: 12/18/19 13:36 Dose: 650 mg Amoxicillin/Clavulanate Potassium (Augmentin) 875 mg PO Q12HR [facility] Last Admin: 12/19/19 08:44 Dose: 875 mg Aspirin (Ecotrin) 81 mg PO DAILY [facility] Last Admin: 12/19/19 08:44 Dose: 81 mg Atorvastatin Calcium (Lipitor) 40 mg PO QPM [facility] Last Admin: 12/18/19 20:41 Dose: 40 mg Benzonatate (Tessalon) 100 mg PO TIDPRN PRN PRN Reason: Cough Last Admin: 12/16/19 09:31 Dose: 100 mg Bisacodyl (Dulcolax) 10 mg PO DAILYPRN PRN PRN Reason: Constipation Last Admin: 12/16/19 20:25 Dose: 10 mg Carvedilol (Coreg) 6.25 mg PO BID [facility] Last Admin: 12/19/19 08:44 Dose: 6.25 mg Fluticasone Propionate (Flonase Nasal [place]) 0 gm NASAL DAILY [facility] Last Admin: 12/19/19 08:45 Dose: 1 spr Furosemide (Lasix) 40 mg PO DAILY PRN PRN Reason: Edema Furosemide (Lasix) 40 mg PO DAILY-AC [facility] Last Admin: 12/19/19 08:45 Dose: 40 mg Ketorolac Tromethamine (Toradol) 30 mg IVP Q6H PRN PRN Reason: Pain Stop: 12/22/19 17:00 Morphine Sulfate (Morphine) 4 mg SLOW IVP Q4H PRN PRN Reason: Chest Pain Last Admin: 12/16/19 09:33 Dose: 4 mg Nitroglycerin (Nitrostat) 0.4 mg PO Q5MIN PRN PRN Reason: Chest Pain Last Admin: 12/16/19 09:35 Dose: 0.4 mg Pantoprazole Sodium (Protonix) 40 mg PO DAILY [facility] Stop: 01/16/20 09:01 Last Admin: 12/19/19 08:44 Dose: 40 mg Rivaroxaban (Xarelto) 20 mg PO [facility] Last Admin: 12/18/19 20:41 Dose: 20 mg Sacubitril/Valsartan (Entresto 24 Mg-26 Mg Tablet) 1 tab PO BID M[facility]ISSA Sacubitril/Valsartan (Entresto 24 Mg-26 Mg Tablet) 1 tab PO NOW [facility] Stop: 12/19/19 12:00 Last Admin: 12/19/19 10:28 Dose: 1 tab Senna/Docusate Sodium (Senokot S) 2 tab PO BIDPRN PRN PRN Reason: Constipation Sodium Chloride (Flush - Normal Saline) 10 ml IVF Q12HR PRN PRN Reason: Saline Flush Last Admin: 12/19/19 08:45 Dose: 10 ml Sodium Chloride (Flush - Normal Saline) 10 ml IVF PRN PRN PRN Reason: Saline Flush Sucralfate (Carafate) 1 gm PO ACHS [facility] Stop: 12/31/19 11:31 Last Admin: 12/19/19 08:44 Dose: 1 gm Vital Signs & Weight: Vital Signs Temp Pulse Pulse Pulse Resp BP BP 12/19/19 09:06 80 78 177/79 H 12/19/19 08:44 136/87 12/19/19 08:00 98.4 F 87 24 H 12/19/19 07:45 12/19/19 03:41 98.2 F 60 18 12/19/19 00:16 82 BP BP Pulse Ox Pulse Ox Pulse Ox 12/19/19 09:06 137/79 96 96 12/19/19 08:44 12/19/19 08:00 136/87 95 12/19/19 07:45 96 12/19/19 03:41 133/70 93 L 12/19/19 00:16 Weight 242 lb 8 oz - Physical Exam General: alert & oriented x3 HEENT: mucus membranes moist Neck: supple neck Cardiac: regular rate and rhythm, S1/S2 Lungs: decreased breath sounds Extremities: no edema - Labs Result Diagrams: 12/19/19 09:54 12/19/19 04:28 Troponin/CKMB CK-MB (CK-2) 8.3 ng/mL (0-6.6) H* 12/14/19 02:03 Troponin I 0.866 ng/mL (< 0.028) H* 12/14/19 08:42 - Telemetry Sinus rhythms and dysrhythmias: sinus rhythm - Assessment/Plan Assessment/Plan: 1. Recurrent Aflutter with RVR (s/p CTI in 09/2017) - s/p MARCO/DCCV on 2019 and redo Aflutter RFA on 12/17/2019; remains in SR with Coreg 6.25mg BID; On Xarelto 20mg qd (he was on Eliquis 5mg BID in 2018 after s/p CIT ablation); H &H today is stable 2. CAD with hx of CABG and s/p LHC in 09/2019 with patent graft with EF 45-50%, hypokinetic inferior wall and apex - No chest pain or SOB today 3. Chronic Systolic HF with EF 40-45% in 09/2019 - stable; on Lasix and Coreg 3.125mg BID, which will be increased to 6.25mg BID from this PM; may resume Entresto once his BP is more stable 4. Ischemic CMY 5. s/p AAA repair in 08/2017 6. HTN - will increase Coreg to 6.25mg BID from this PM 7. HLD - statin 8. Sleep apnea with Cpap MAR reviewed * Echo in 09/2019 with EF 40-45%, grade I dd, inferior wall hypokinesis, mod NATALYA , mild LAE, mild TR and NV * From Cardiac standpoint, the pt is stable to d/c home and f/u with Dr Thomas' office in 2 wks. <Addendum> Will give another Laisx 20mg IV push this afternoon due to worsening of SOB this afternoon although he was doing well this AM with Lasix 40mg IV. He admitted that he has not watched his fluid and salt intakes during this hospitalization. Strongly instructed to watch strict fluid and salt intakes. Pt. seen and eval. by me. He is ambulating in the halls. Still a little SOB, mild edema. Occasional PVC's. No further Aflutter. He has a LBBB which is not new. The EF by MARCO on 12/16/2019 was 35-40%. This may improve now that he is back in NSR. Resume entresto. replace potassium.Continue diuretics. gjm
[2019-12-19] MEDS ORDERED: Furosemide 40 MG/4 ML VIAL SLOW IVP SCH (13:45)
[2019-12-19] MEDS ORDERED: Furosemide 20 MG/2 ML VIAL SLOW IVP SCH (14:00)
--- NOTE | 2019-12-19 17:12 | PDOC.HOSPP ---
- Subjective Encounter Date: 12/19/19 Encounter Time: 09:45 Subjective: pt up in bed no complains - Objective Vital Signs & Weight: Vital Signs (12 hours) Temp Pulse Pulse Pulse Resp BP BP 12/19/19 12:00 98.6 F 72 18 12/19/19 09:06 80 78 177/79 H 12/19/19 08:44 136/87 12/19/19 08:00 98.4 F 87 24 H 12/19/19 07:45 BP BP Pulse Ox Pulse Ox Pulse Ox 12/19/19 12:00 152/87 H 12/19/19 09:06 137/79 96 96 12/19/19 08:44 12/19/19 08:00 136/87 95 12/19/19 07:45 96 Weight Weight 242 lb 8 oz I&O: 12/18/19 12/19/19 12/20/19 06:59 06:59 06:59 Intake Total 4700 1200 Output Total 2025 Balance 4700 -825 Result Diagrams: 12/19/19 09:54 12/19/19 04:28 Hospitalist ROS - Review of Systems Cardiovascular: denies: chest pain, palpitations, orthopnea, paroxysmal noc. dyspnea, edema, light headedness, other Gastrointestinal: denies: nausea, vomiting, abdominal pain, diarrhea, constipation, melena, hematochezia, other Genitourinary: denies: dysuria, frequency, incontinence, hematuria, retention, other - Medication Medications: Active Medications Generic Name Dose Route Start Last Admin Trade Name Freq PRN Reason Stop Dose Admin Acetaminophen 650 mg 12/14/19 03:11 12/18/19 13:36 Tylenol PO 650 mg Q4H PRN Administration Headache/Fever/Mild Pain (1-3) Amoxicillin/Clavulanate Potassium 875 mg 12/17/19 21:00 12/19/19 08:44 Augmentin PO 875 mg Q12HR MELISSA Administration Aspirin 81 mg 12/14/19 09:00 12/19/19 08:44 Ecotrin PO 81 mg DAILY M[facility]ISSA Administration Atorvastatin Calcium 40 mg 12/14/19 21:00 12/18/19 20:41 Lipitor PO 40 mg QPM MELISSA Administration Benzonatate 100 mg 12/16/19 09:11 12/16/19 09:31 Tessalon PO 100 mg TIDPRN PRN Administration Cough Bisacodyl 10 mg 12/14/19 03:11 12/16/19 20:25 Dulcolax PO 10 mg DAILYPRN PRN Administration Constipation Carvedilol 6.25 mg 12/18/19 21:00 12/19/19 08:44 Coreg PO 6.25 mg BID [facility]SA Administration Fluticasone Propionate 0 gm 12/18/19 09:00 12/19/19 08:45 Flonase Nasal [place] NASAL 1 spr DAILY M[facility]SA Administration Furosemide 40 mg 12/19/19 07:30 12/19/19 08:45 Lasix PO 40 mg DAILY-AC MELISSA Administration Morphine Sulfate 4 mg 12/14/19 08:43 12/16/19 09:33 Morphine SLOW IVP 4 mg Q4H PRN Administration Chest Pain Nitroglycerin 0.4 mg 12/14/19 03:06 12/16/19 09:35 Nitrostat PO 0.4 mg Q5MIN PRN Administration Chest Pain Pantoprazole Sodium 40 mg 12/18/19 09:00 12/19/19 08:44 Protonix PO 01/16/20 09:01 40 mg DAILY [facility]SA Administration Sodium Chloride 10 ml 12/14/19 03:11 12/19/19 08:45 Flush - Normal Saline IVF 10 ml Q12HR PRN Administration Saline Flush Sodium Chloride 10 ml 12/17/19 19:00 12/19/19 14:43 Flush - Normal Saline IVF 10 ml PRN PRN Administration Saline Flush Sucralfate 1 gm 12/17/19 17:00 12/19/19 12:44 Carafate PO 12/31/19 11:31 1 gm ACHS [facility] Administration - Exam Neck: negative: supple, symmetric, no JVD, no thyromegaly, no lymphadenopathy, no carotid bruit, JVD Heart: negative: RRR, no murmur, no gallops, no rubs, normal peripheral pulses, irregular, diminshed peripheral pulses, murmur present, II/IV, III/IV Respiratory: negative: CTAB, no wheezes, no rales, no ronchi, normal chest expansion, no tachypnea, normal percussion, rales, rhonchi, tachypneic, wheezes Gastrointestinal: negative: soft, non-tender, non-distended, normal bowel sounds , no palpable masses, no hepatomegaly, no splenomegaly, no bruit, no guarding, no rigidity, tender to palpation, distended, diminished bowl sounds, voluntary guarding Hosp A/P (1) Chest pain Code(s): R07.9 - CHEST PAIN, UNSPECIFIED Status: Acute (2) Atrial flutter Code(s): I48.92 - UNSPECIFIED ATRIAL FLUTTER Status: Acute (3) Elevated troponin Code(s): R74.8 - ABNORMAL LEVELS OF OTHER SERUM ENZYMES Status: Acute (4) HTN (hypertension) Code(s): I10 - ESSENTIAL (PRIMARY) HYPERTENSION Status: Acute (5) LUÍS (obstructive sleep apnea) Code(s): G47.33 - OBSTRUCTIVE SLEEP APNEA (ADULT) (PEDIATRIC) Status: Acute - Plan He is currently rate controlled. will continue AC. pt to undergo DCCV 6/ pt up in bed complains of sob will get cxr and pt will need lasix. / pt going for ablation today. will continue current meds. / pt doing well, after lasix he was ambulated and did not drops his oxygen sat. will continue lasix daily 12/18 will replace K, pt had several pvcs so cardio wants to keep him one more day. will check bmp in am.
[2019-12-19 18:36] LABS: Potassium 3.6 mmol/L (3.5-5.1)
[2019-12-19] MEDS: Dabigatran 150 mg Capsule PO SCH (20:13)
[2019-12-19] MEDS: Atorvastatin Calcium 40 MG TAB PO SCH (20:13)
[2019-12-20 04:27] LABS: Hemoglobin 12.6 g/dL (14.0-18.0); Platelet Count 185 thou/uL (130-400)
[2019-12-20 04:49] LABS: ALT (SGPT) 70 U/L (8-55); AST (SGOT) 55 U/L (5-34); Albumin 3.7 g/dL (3.4-4.8); Alkaline Phosphatase 82 U/L (40-110); Anion Gap 14 mmol/L (10-20); BUN (Urea Nitrogen) 16 mg/dL (8.4-25.7); Bilirubin, Total 1.8 mg/dL (0.2-1.2); Calc. Creatinine Clearance 116 mL/min (70-130); Calcium 8.4 mg/dL (7.8-10.44); Carbon Dioxide 22 mmol/L (23-31); Chloride 107 mmol/L (98-107); Estimated GFR-MDRD Greater than 90; Globulin 2.6 g/dL (2.4-3.5); Glucose 130 mg/dL (83-110); Potassium 3.3 mmol/L (3.5-5.1); Protein, Total 6.3 g/dL (5.8-8.1); Sodium 140 mmol/L (136-145)
[2019-12-20] MEDS ORDERED: Potassium Chloride 20 MEQ TAB PO SCH (06:45)
[2019-12-20] MEDS ORDERED: Potassium Chloride 10 MEQ in Premix Bag 1 BAG IVPB SCH (06:45)
[2019-12-20] MEDS: Sucralfate 1 GM TAB PO SCH ×2 (08:37→11:51)
[2019-12-20] MEDS: Furosemide 40 MG TAB PO SCH (08:37)
[2019-12-20] MEDS: Aspirin 81 mg Enteric Coated Tablet PO SCH (08:38)
[2019-12-20] MEDS: Amoxicillin/Potassium Clav 875 MG TAB PO SCH (08:38)
[2019-12-20] MEDS: Carvedilol 6.25 MG TAB PO SCH (08:38)
[2019-12-20] MEDS: Dabigatran 150 mg Capsule PO SCH (08:38)
[2019-12-20] MEDS: Fluticasone Propionate Nasal Spray 16 gm Bottle NASAL SCH (08:40)
[2019-12-20] MEDS ORDERED: Isosorbide Mononitrate (ER) 30 MG TAB PO SCH (09:00)
[2019-12-20] MEDS ORDERED: Ezetimibe 10 MG TAB PO SCH (09:00)
[2019-12-20 10:00] VITALS: TEMP 98.3
[2019-12-20 12:29] VITALS: BP 139/75
--- NOTE | 2019-12-20 13:51 | EKG ---
Test Reason : Blood Pressure : / mmHG Vent. Rate : 125 BPM Atrial Rate : 202 BPM P-R Int : 000 ms QRS Dur : 140 ms QT Int : 380 ms P-R-T Axes : 000 -19 210 degrees QTc Int : 548 ms Wide QRS tachycardia with Premature ventricular complexes or Fusion complexes Left bundle branch block Abnormal ECG Confirmed by LAKIA BRINK M.D. ([id number]), visual effects editor YUDITH LANDA ([id number]) on 12/20/2019 1:51:41 PM Referred By: Confirmed By:LAKIA BRINK M.D.
--- NOTE | 2019-12-20 19:24 | DIS ---
DATE OF ADMISSION: 12/14/2019 DATE OF DISCHARGE: 12/20/2019 DISCHARGE DIAGNOSES: As of the followin. Chest pain. 2. Atrial flutter. 3. Elevated troponins, most likely secondary to demand-related, type 2. 4. Hypertension. 5. Obstructive sleep apnea. HOSPITAL COURSE: The patient is a 79-year-old male, who initially was admitted to the hospital on 12/13, with complaints of chest pain. At this time, the patient was found to have heart rate up in the 120s, appeared to be atrial flutter. The patient was given medications to control his rate, and EP was consulted. The patient initially underwent a cardioversion. This was done on 12/14. The patient then underwent an ablation by Electrophysiology. The patient underwent an ablation on 12/16. The patient's hospital course was complicated with some shortness of breath and was found to have fluid overload. He was given some IV Lasix, which improved his shortness of breath. He denied any chest pain or palpitations after that. The patient was started on anticoagulation. He did have some dark tarry stools, which were checked, and the occult was negative. He was supposed to be discharged on Sunday, however, started having more PVCs and was found to have some low potassium. His potassium was replaced, and at this time, he was okay to be discharged. He was not seen by EP today; however, he was seen by Cardiology, who stated that he was okay to be discharged. He will be discharged. He will follow up with his primary and also with EP and Cardiology. MEDICATIONS: He will be on: 1. Aspirin 81 mg daily. 2. Pradaxa 150 mg twice a day. 3. Augmentin 875 one p.o. b.i.d. 4. Coreg 6.25 twice a day, which has been titrated up. 5. Protonix 40 mg daily. 6. Carafate 1 g a.c. and at bedtime. 7. Lasix 20 mg daily. 8. Isosorbide 30 mg twice a day. 9. Clonidine 1 tablet b.i.d. p.r.n. 10. Entresto 2 tablets twice a day. 11. Atorvastatin 1 tablet daily. 12. Tamsulosin 0.4 one p.o. at bedtime. 13. Folic acid 1 p.o. daily. PHYSICAL EXAMINATION: VITAL SIGNS: On discharge, temperature of 98.3, heart rate 74, respiratory rate 16, O2 saturation 95% on room air, blood pressure 139/75. GENERAL: He is awake, alert, and oriented x3, does not appear in pain or distress. CV: S1 and S2 present. No murmurs, rubs, or gallops. ABDOMEN: Soft and nontender. Bowel sounds are present x2. His potassium has been replaced. He has been encouraged to take his Entresto, which most likely will increase his potassium given the JACINTA inhibitor. Also, he was encouraged to eat a banana for the next couple of days. The patient will be discharged home. He will follow up with his primary and Cardiology. Job ID: [id number]
[2019-12-20] MEDS ORDERED: Tamsulosin HCl 0.4 MG CAP PO SCH (21:00)
== END 2019-12-20 13:07 | disposition home or self-care (01) | DRG 273 ==
LOC: ERS 01:44 → 2NO 02:23
PROVIDERS: ADMIT Internal Medicine; ATTEND Internal Medicine
PROC: B24BZZ4 Ultrasonography of Heart with Aorta, Transesophageal (ICD-10-PCS; 2019-12-15)
PROC: 5A2204Z Restoration of Cardiac Rhythm, Single (ICD-10-PCS; 2019-12-15)
PROC: 02583ZZ Destruction of Conduction Mechanism, Percutaneous Approach (ICD-10-PCS; principal; 2019-12-17)
PROC: 4A023FZ Measurement of Cardiac Rhythm, Percutaneous Approach (ICD-10-PCS; 2019-12-17)
PROC: 4A0234Z Measurement of Cardiac Electrical Activity, Percutaneous Approach (ICD-10-PCS; 2019-12-17)
PROC: 02K83ZZ Map Conduction Mechanism, Percutaneous Approach (ICD-10-PCS; 2019-12-17)
DX: I48.4 Atypical atrial flutter (principal); I50.43 Acute on chronic combined systolic (congestive) and diastolic (congestive) heart failure; I24.8 Other forms of acute ischemic heart disease; G47.33 Obstructive sleep apnea (adult) (pediatric); I49.3 Ventricular premature depolarization; E66.9 Obesity, unspecified; I25.10 Atherosclerotic heart disease of native coronary artery without angina pectoris; E78.5 Hyperlipidemia, unspecified; M19.90 Unspecified osteoarthritis, unspecified site; N40.0 Benign prostatic hyperplasia without lower urinary tract symptoms; R73.9 Hyperglycemia, unspecified; Z96.662 Presence of left artificial ankle joint; I25.5 Ischemic cardiomyopathy; I37.1 Nonrheumatic pulmonary valve insufficiency; I44.7 Left bundle-branch block, unspecified; Z96.651 Presence of right artificial knee joint; H91.90 Unspecified hearing loss, unspecified ear; I08.1 Rheumatic disorders of both mitral and tricuspid valves; I11.0 Hypertensive heart disease with heart failure; Z91.19 Patient's noncompliance with other medical treatment and regimen; Z68.30 Body mass index [BMI] 30.0-30.9, adult; Z95.1 Presence of aortocoronary bypass graft; Z88.8 Allergy status to other drugs, medicaments and biological substances; Z87.891 Personal history of nicotine dependence; Z79.899 Other long term (current) drug therapy; Z79.82 Long term (current) use of aspirin; Z79.01 Long term (current) use of anticoagulants; Z79.02 Long term (current) use of antithrombotics/antiplatelets
CPT/HCPCS: 36415; 71045; 76942; 80048; 80053; 82274; 82553; 82565; 83036; 83735; 83880; 84484; 85014; 85018; 85025; 85049; 85347; 93005; 93010; 93312; 93613; 93623; 93656; 93662; 93798; 94760; C1732; C1759; C1884; C9113; J1160; J1644; J1650; J1885; J1940; J2001; J2270; J2405; J2704; J2720; J3010; J3480; J3490

== ENCOUNTER 2020-01-07 03:35 | Observation (INO) | payer MEDICARE ==
[2020-01-07] MEDS ORDERED: Ondansetron PF 4 MG/2 ML Vial IVP PRN (06:25)
[2020-01-07] MEDS ORDERED: Senokot S 8.6-50 MG TAB PO PRN (06:25)
[2020-01-07] MEDS ORDERED: Calcium Carbonate 500 MG ChewTAB PO PRN (06:25)
[2020-01-07] MEDS ORDERED: Guaifenesin DM 100-10/5 ML UDCUP PO PRN (06:25)
[2020-01-07] MEDS ORDERED: Acetaminophen 325 MG TAB PO PRN (06:25)
[2020-01-07] MEDS ORDERED: Bisacodyl 10 MG SUPP PR PRN (06:25)
[2020-01-07] MEDS ORDERED: HYDROcodone/Acetaminophen 5/325 mg Tablet PO PRN (06:25)
[2020-01-07] MEDS: Carvedilol 3.125 MG TAB PO SCH ×4 (08:56→21:11)
[2020-01-07] MEDS: Ezetimibe 10 MG TAB PO SCH (08:56)
[2020-01-07] MEDS: Sucralfate 1 GM TAB PO SCH ×4 (08:56→21:11)
[2020-01-07] MEDS ORDERED: Carvedilol 6.25 MG TAB PO SCH (09:00)
[2020-01-07] MEDS ORDERED: Aspirin 81 mg Enteric Coated Tablet PO SCH (09:00)
[2020-01-07 09:17] VITALS: BMI 30.1
--- NOTE | 2020-01-07 09:29 | PDOC.HHP ---
Hospitalist HPI - History of Present Illness tachycardia History of Present Illness: This is a 79 year old male with history of atrial flutter s/p ablation 12/16 who presented to the ER with tachycardia. The patient states that yesterday he was checking his blood pressure at home and noticed his heart rate was fast. He checked it several times during the day and it was persistently greater than 113. He had one low blood pressure of 87/22 ,but most of his blood pressures ranged from 106-163 systolic. The patient states he was taking 3.125 mg coreg twice daily due to a low heart rate; of note the patient was discharged on 12/16 with coreg 6.125 mg bid. He denied chest pain, palpitations, shortness of breath, cough, fevers or chills. He states he has been having diarrhea 7-8 times daily ever since he was discharged from the hospital three weeks ago. He has no abdominal pain. No history of thyroid problems. ED Course: The patient went to an outside ER. He was found to have BP 90/60, heart rate 115. EKG showed sinus tachycardia with left bundle branch block. Troponin I was normal, coronavirus was not detected, BNP was 198. CBC showed Hb 13.1, Hct 38.4. INR was 1.3. BMP was normal. Chest X ray was normal. The patient was given aspirin 324 mg. He was given a 1L bolus and transferred here. Hospitalist ROS - Review of Systems Constitutional: denies: fever ENT: denies: ear pain, ear discharge Respiratory: denies: cough, dry, shortness of breath Cardiovascular: denies: chest pain, palpitations, orthopnea Gastrointestinal: reports: diarrhea. denies: nausea, vomiting, abdominal pain Genitourinary: denies: dysuria, frequency Musculoskeletal: denies: neck pain, shoulder pain Neurological: denies: weakness, numbness, seizures - Medication Medications: Active Medications Generic Name Dose Route Start Last Admin Trade Name Freq PRN Reason Stop Dose Admin Aspirin 81 mg 01/07/20 09:00 01/07/20 08:56 Ecotrin PO 81 mg QAM MELISSA Administration Carvedilol 3.125 mg 01/07/20 09:00 01/07/20 08:56 Coreg PO 3.125 mg BID MELISSA Administration Ezetimibe 10 mg 01/07/20 09:00 01/07/20 08:56 Zetia PO 10 mg DAILY MELISSA Administration Pantoprazole Sodium 40 mg 01/07/20 09:00 01/07/20 08:56 Protonix PO 40 mg DAILY MELISSA Administration Sodium Chloride 10 ml 01/07/20 09:00 01/07/20 08:56 Flush - Normal Saline IVF 10 ml Q12HR MELISSA Administration Sucralfate 1 gm 01/07/20 07:30 01/07/20 08:56 Carafate PO 1 gm ACHS MELISSA Administration Hospitalist History - Past Medical History Other Medical History: CAD Hypertension Atrial fib/atrial flutter Hyperlipidemia - Past Surgical History Other Surgical History: CAD s/p CABG (quadruple bypass) x 2 Aneurysm abdomen repaired Knee and ankle replacement Ablation two years ago and on 12/16 - Family History Other Family History: No family history of heart problems - Social History Smoking Status: Never smoker Alcohol: reports: None Drugs: reports: none Living Situation: Other ( for 60+ years.) - Exam General Appearance: NAD, awake alert Eye: PERRL, anicteric sclera ENT: normocephalic atraumatic, no oropharyngeal lesions Neck: no JVD Heart: no murmur, no gallops, no rubs, irregular Respiratory: CTAB, no wheezes, no rales, no ronchi Gastrointestinal: soft, non-tender, non-distended, normal bowel sounds Extremities: no cyanosis, no clubbing, no edema Hospitalist Results - Labs Result Diagrams: 01/07/20 09:59 01/07/20 09:59 Hospitalist H&P A/P - Plan Plan: This is a 79 year old male who presented with tachhycardia, had recent ablation on 12/16 Tachycardia likely from uncontrolled afib/flutter - on exam patient has irregular rate - Dr. Moss consulted, pending recommendations - check CBc, BMP, magnesium level, TSH - continue pradaxa - will give 500 cc bolus Diarrhea - check stool cultures - check TSH - check C diff given patient was on augmentin during last hospitalization CAD s/p CABG - continue aspirin and pradaxa and statin History of systolic heart failure Hypertension - hold entresto for now, hold imdur - hold lasix BPH - continue flomax COde status: full code
[2020-01-07] MEDS ORDERED: cloNIDine 0.1 MG TAB PO PRN ×2 (09:30→09:39)
[2020-01-07] MEDS ORDERED: Dabigatran 150 mg Capsule PO SCH ×2 (09:30→10:00)
[2020-01-07] MEDS ORDERED: Sodium Chloride 0.9% 500 ML IV SCH (09:45)
[2020-01-07 10:08] LABS: Hemoglobin 13.3 g/dL (14.0-18.0); Mean Corpuscular HGB CONC 33.1 g/dL (32.0-36.0); Mean Corpuscular Hemoglobin 30.8 pg (27.0-31.0); Mean Platelet Volume 7.5 fL (7.4-10.4); Platelet Count 151 thou/uL (130-400); RBC Distribution Width 12.4 % (11.5-14.5); White Blood Cell (WBC) Count 6.2 thou/uL (4.8-10.8)
[2020-01-07 10:40] LABS: Anion Gap 12 mmol/L (10-20); BUN (Urea Nitrogen) 13 mg/dL (8.4-25.7); Calc. Creatinine Clearance 101 mL/min (70-130); Calcium 8.5 mg/dL (7.8-10.44); Carbon Dioxide 23 mmol/L (23-31); Chloride 104 mmol/L (98-107); Estimated GFR-MDRD 82; Glucose 124 mg/dL (83-110); Magnesium 2.3 mg/dL (1.6-2.6); Potassium 4.4 mmol/L (3.5-5.1); Sodium 135 mmol/L (136-145)
[2020-01-07 11:00] LABS: Free T4 (Free Thyroxine) 1.03 ng/dL (0.70-1.48); Thyroid Stimulating Hormone 1.1732 uIU/mL (0.35-4.94)
[2020-01-07] MEDS: Aspirin 81 mg Enteric Coated Tablet PO SCH (11:01)
[2020-01-07] MEDS ORDERED: Lidocaine 1% PF 5 ML VIAL ONE (11:45)
[2020-01-07] MEDS ORDERED: PROPOFOL 200 MG/20 ML VIAL ONE (11:45)
[2020-01-07] MEDS ORDERED: PROPOFOL 20 ML ONE (14:25)
[2020-01-07] MEDS ORDERED: Lidocaine 1% (PF) 30 ML VIAL ONE (14:25)
--- NOTE | 2020-01-07 15:38 | OP ---
DATE OF PROCEDURE: 01/07/2020 PROCEDURE PERFORMED: Cardioversion. REASON FOR PROCEDURE: Mr. Whitmore is a 79-year-old man with history of persistent atrial fibrillation, cardiomyopathy, left bundle-branch block. He underwent a pulmonary venous isolation procedure about 3 weeks ago, but now returns with a new onset of rapid heartbeats. The EKG is suggestive of 2:1 conducted atrial flutter and continued left bundle-branch block. The patient has been well anticoagulated without interruption since ablation and we are planning a cardioversion. DESCRIPTION OF PROCEDURE: The patient received propofol by Anesthesia specialist. After adequate level of sedation achieved, a synchronized 100-joule shock promptly converted the patient back to sinus bradycardia, initially slow ventricular rates, responded to transcutaneous pacing for a couple of seconds only. Then, heart rates were seen in the 60 range. CONCLUSION: Successful cardioversion. PLAN: Continue oral anticoagulation. Consider antiarrhythmic agents, though he may require pacing for sinus node dysfunction if that is the case. We will evaluate echocardiogram to assess his LV function as well. Job ID: [id number] [id number]
[2020-01-07] MEDS ORDERED: Non-Formulary Item 1 EACH (Ubidecarenone [Co Q-10] 100 MG) PO SCH (21:00)
[2020-01-07] MEDS ORDERED: Non-Formulary Item 1 EACH (Folic Acid [Folic Acid] 0.8 MG) PO SCH (21:00)
[2020-01-07] MEDS ORDERED: Atorvastatin Calcium 40 MG TAB PO SCH (21:00)
[2020-01-07] MEDS: Ubidecarenone 50 MG CAP PO SCH (21:10)
[2020-01-07] MEDS: Atorvastatin Calcium 40 MG TAB PO SCH (21:10)
[2020-01-07] MEDS: Folic Acid 1 MG TAB PO SCH (21:11)
[2020-01-07] MEDS: Dabigatran 150 mg Capsule PO SCH (21:11)
[2020-01-07] MEDS: Tamsulosin HCl 0.4 MG CAP PO SCH (21:11)
[2020-01-08 04:49] LABS: #Eosinphils 0.2 thou/uL (0.0-0.7); #Lymphocytes 1.6 thou/uL (1.20-3.40); #Monocytes 0.4 thou/uL (0.11-0.59); #Neutrophils 2.9 thou/uL (1.40-6.50); %Basophils 0.9 % (0.0-1.0); %Eosinophils 4.2 % (0.0-10.0); %Lymphocytes 30.4 % (21.0-51.0); %Monocytes 8.3 % (0.0-10.0); %Neutrophils 56.2 % (42.0-75.0); Hemoglobin 12.7 g/dL (14.0-18.0); Mean Corpuscular HGB CONC 33.1 g/dL (32.0-36.0); Mean Corpuscular Volume 93.5 fL (78.0-98.0); Mean Platelet Volume 7.6 fL (7.4-10.4); Platelet Count 147 thou/uL (130-400); RBC Distribution Width 12.3 % (11.5-14.5); Red Blood Cell (RBC) Count 4.09 mill/uL (4.70-6.10); White Blood Cell (WBC) Count 5.2 thou/uL (4.8-10.8)
[2020-01-08 05:13] LABS: Anion Gap 9 mmol/L (10-20); BUN (Urea Nitrogen) 13 mg/dL (8.4-25.7); Calc. Creatinine Clearance 106 mL/min (70-130); Calcium 8.7 mg/dL (7.8-10.44); Carbon Dioxide 24 mmol/L (23-31); Chloride 105 mmol/L (98-107); Estimated GFR-MDRD 87; Glucose 106 mg/dL (83-110); Potassium 4.1 mmol/L (3.5-5.1); Sodium 134 mmol/L (136-145)
--- NOTE | 2020-01-08 06:29 | CON ---
DATE OF CONSULTATION: 01/07/2020 Dictated by Monet Uribe, nurse practitioner, as a scribe for Dr. Kenroy Moss. Consultation performed by Dr. Kenroy Moss. REASON FOR CONSULTATION: Atrial fibrillation. HISTORY OF PRESENT ILLNESS: Mr. Whitmore is a 79-year-old gentleman with a history of atrial arrhythmias. He had recently undergone left atrial ablation and pulmonary venous isolation on 12/17/2019. In the remote past, he had undergone typical atrial flutter ablation in 2018. He was discharged earlier this month post ablation. He had been seen to have some ventricular ectopy and was borderline bradycardic. There was some restriction on increasing his Coreg due to his bradycardia. He was also seen to have a left bundle-branch block. He presented to the emergency room with tachycardia and was found to have early recurrence of atrial arrhythmias following his recent ablation during inflammatory phase. He reported some low blood pressure. He also endorses some diarrhea since his recent hospitalization. Mr. Whitmore is currently feeling fairly well. He does endorse some heart racing, palpitation, some dizziness, and diarrhea. He denies any chest pain, syncope, near syncope, stroke, or stroke-like symptoms. He is not having any bleeding dyscrasias. He is tolerating his anticoagulation with Pradaxa well. REVIEW OF SYSTEMS: Otherwise, 12-point review of systems is unremarkable. PROBLEM LIST/PAST MEDICAL HISTORY: 1. Recurrent atrial arrhythmias: a. Typical atrial flutter, status post CTI ablation on 09/21/2017. b. Atrial fibrillation, status post PVAI 12/17/2019 with early recurrence. 2. Coronary artery disease: a. Three vessel disease, status post repeated bypass most recently in 2001. 3. 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 Moderately reduced LVEF of 40% to 45% by echo on 09/22/2019. 4. Peripheral vascular disease: a. Status post AAA endovascular repair on 08/20/2017. 5. Hypertension. 6. Hyperlipidemia. 7. LUÍS, on CPAP. 8. Elevated BMI greater than 30. 9. BPH. 10. Degenerative joint disease. ALLERGIES: HYDROCHLOROTHIAZIDE. HOME MEDICATIONS: 1. Tamsulosin at bedtime. 2. Vitamin C at bedtime. 3. Imdur 30 mg b.i.d. 4. Lipitor q.p.m. 5. Aspirin daily 81 mg. 6. Tylenol as needed. 7. CoQ10 q.p.m. 8. Carafate 1 g before meals and at bedtime post ablation x2 weeks. 9. Potassium 20 mEq daily. 10. Lasix 40 mg daily. 11. Folic acid 0.8 mg at bedtime. 12. Ezetimibe 10 mg daily. 13. Pradaxa 150 mg b.i.d. 14. Carvedilol 3.125 mg b.i.d. 15. Entresto 49/51 mg b.i.d. 16. Clonidine b.i.d. p.r.n. FAMILY HISTORY: Positive for CAD. SOCIAL HISTORY: Lives in [place] with his at home. Ambulates without assistance. Never smoked. Denies alcohol or drug abuse. Remote history of tobacco over 40 years ago. OBJECTIVE: VITAL SIGNS: Temperature 96.5 degrees Fahrenheit, pulse 113, blood pressure 109/65, respirations 18, and oxygen 95% on room air. GENERAL: The patient is alert and oriented. Speech is clear. Affect is appropriate. He is in no apparent distress at the time of the exam, he is resting comfortably in bed. HEENT: He is normocephalic and atraumatic. Sclerae are anicteric. EOMs are intact. Oral mucosa is moist and pink with adequate dentition. NECK: Supple. Mild jugular venous distention in a semi-recumbent position. LUNGS: Clear to auscultation in the upper clark with some fine bibasilar crackles. HEART: Rate is irregularly irregular and tachycardic. PMI nondisplaced. ABDOMEN: Obese, soft, and nontender without palpable masses. EXTREMITIES: Warm and dry to touch. Well perfused without clubbing or cyanosis. Trace edema is noted in bilateral lower extremities. NEUROLOGIC: Grossly intact and nonfocal. Gait was not assessed. DATABASE: Telemetry and EKG show tachycardic, atrial arrhythmia, likely 2:1 atrial flutter. There is a pre-existing left bundle-branch block, which is likely hiding one of his atrial flutter P waves. His baseline sinus rhythm is in the 50s and his current tachycardia likely represents 2:1 flutter. LABORATORY DATA: Hematology is unremarkable. Chemistry; sodium 135, potassium 4.4, creatinine 0.89, magnesium 2.3. TSH 1.1 and free T4 is 1.03. IMPRESSION: 1. Early recurrence of atrial arrhythmias following PVI on 12/17/2019. 2. Tachy-arsenio syndrome. 3. Left bundle-branch block. 4. Chronic systolic congestive heart failure with nonischemic cardiomyopathy, LVEF 35% with no fluid overload. 5. History of PVCs. 6. Oral anticoagulation with Pradaxa for elevated CHADS-VASc score and post ablation. PLAN AND RECOMMENDATIONS: Mr. Whitmore appears to be in early recurrence of what appears to be 2:1 atrial flutter. Early recurrent arrhythmias are not uncommon this close following ablation. I have ordered a repeat EKG to see if there is any additional clarity that can be provided to the arrhythmia, though his P waves will be difficult to see with his bundle branch block if he is in a 2:1 flutter. Ultimately, he would most benefit from a cardioversion as he is moderately symptomatic with his atrial arrhythmias. He has some borderline hypotension, so I will check a transthoracic echocardiogram to rule out any post ablation pericardial effusion. He may require antiarrhythmic support for suppression of his atrial arrhythmias during his recovery period post ablation. With his tachy-arsenio syndrome, this does present a challenge. We have been limited with further titrating his beta blockers due to his underlying bradycardia. We could consider Tikosyn loading following the cardioversion if bradycardia is seen versus biventricular pacing, possibly defibrillator implant due to his cardiomyopathy. Amiodarone would be a consideration, though this would likely require the support of a pacemaker to prevent worsening bradycardia. Also plan to obtain repeat 2D ECHO. Should he have persistently reduced LVEF and signs of LV disynchrony, may benefit from BIV ICD implant. Thank you for allowing me to participate in the care of this patient. We will keep him n.p.o. today in preparation for cardioversion later today, schedule permitting. The patient is aware of the plan. He understands the risks associated with the cardioversion. He is agreeable to proceed. Job ID: [id number] [facility]
[2020-01-08] MEDS: Ezetimibe 10 MG TAB PO SCH (07:58)
[2020-01-08] MEDS: Aspirin 81 mg Enteric Coated Tablet PO SCH (07:58)
[2020-01-08] MEDS: Dabigatran 150 mg Capsule PO SCH (07:58)
[2020-01-08] MEDS: Ascorbic Acid 500 mg Chewable Tablet PO SCH (07:58)
[2020-01-08] MEDS: Sucralfate 1 GM TAB PO SCH ×4 (07:58→21:56)
[2020-01-08] MEDS: Carvedilol 3.125 MG TAB PO SCH ×2 (07:58→21:56)
[2020-01-08] MEDS ORDERED: Non-Formulary Item 1 EACH (Ascorbic Acid [Vitamin C] 500 MG) PO SCH (09:00)
--- NOTE | 2020-01-08 11:01 | PDOC.HOSPP ---
- Subjective Encounter Date: 01/08/20 Encounter Time: 15:00 Subjective: Patient seen and examined for atrial tachycardia. No CP. s/p CV. No new complaints. No overnight events - Objective Vital Signs & Weight: Vital Signs (12 hours) Temp Pulse Resp BP Pulse Ox 01/08/20 07:12 97.8 F 69 18 155/78 H 97 01/08/20 04:09 97.4 F L 74 14 147/84 H 96 01/08/20 00:38 96 Weight Weight 234 lb 9.6 oz I&O: 01/07/20 01/08/20 01/09/20 06:59 06:59 06:59 Intake Total 1350 Output Total 800 Balance 550 Result Diagrams: 01/08/20 04:24 01/08/20 04:24 EKG Reviewed by me: Yes (Tele SR/SB) Hospitalist ROS - Review of Systems Respiratory: denies: cough, dry, shortness of breath, hemoptysis, SOB with excertion, pleuritic pain, sputum, wheezing, other Cardiovascular: denies: chest pain, palpitations, orthopnea, paroxysmal noc. dyspnea, edema, light headedness, other - Medication Medications: Active Medications Generic Name Dose Route Start Last Admin Trade Name Freq PRN Reason Stop Dose Admin Ascorbic Acid 500 mg 01/08/20 09:00 01/08/20 07:58 Vitamin C PO 500 mg DAILY MELISSA Administration Aspirin 81 mg 01/07/20 09:00 01/08/20 07:58 Ecotrin PO 81 mg DAILY MELISSA Administration Atorvastatin Calcium 40 mg 01/07/20 21:00 01/07/20 21:10 Lipitor PO 40 mg QPM MELISSA Administration Carvedilol 3.125 mg 01/07/20 09:00 01/08/20 07:58 Coreg PO 3.125 mg BID MELISSA Administration Coenzyme Q10 100 mg 01/07/20 21:00 01/07/20 21:10 Coenzyme Q10 PO 100 mg QPM MELISSA Administration Dabigatran 150 mg 01/07/20 21:00 01/08/20 07:58 Pradaxa PO 150 mg BID MELISSA Administration Ezetimibe 10 mg 01/07/20 09:00 01/08/20 07:58 Zetia PO 10 mg DAILY MELISSA Administration Folic Acid 1 mg 01/07/20 21:00 01/07/20 21:11 Folvite PO 1 mg HS MELISSA Administration Pantoprazole Sodium 40 mg 01/07/20 09:00 01/08/20 07:58 Protonix PO 40 mg DAILY MELISSA Administration Sodium Chloride 10 ml 01/07/20 09:00 01/08/20 07:59 Flush - Normal Saline IVF 10 ml Q12HR MELISSA Administration Sucralfate 1 gm 01/07/20 07:30 01/08/20 07:58 Carafate PO 1 gm ACHS MELISSA Administration Tamsulosin HCl 0.4 mg 01/07/20 21:00 01/07/20 21:11 Flomax PO 0.4 mg HS MELISSA Administration - Exam General Appearance: NAD Heart: RRR, no gallops Respiratory: no wheezes, no ronchi Gastrointestinal: non-tender, non-distended, normal bowel sounds Extremities: no cyanosis, no clubbing Neurological: no new deficit Hosp A/P - Plan Atrial fib/flutter -s/p CV with transient bradycardia requiring pacing Diarrhea -?etio Chronic systolic heart failure CAD s/p CABG Aortic stenosis HTN Tachy-Bong syndrome Obesity BMI 30.1 BPH PLAN: Dual chamber ICD in AM Await C diff studies Cont ASA Cont Coreg Cont Anticoagulation Cont other meds as above Full code DPOA spouse
--- NOTE | 2020-01-08 16:51 | PDOC.EP ---
- Subjective Date: 01/08/20 Time: 08:00 Interval History: follow-up regarding atrial fibrillation as well as left bundle-branch block, bradycardia and cardiomyopathy. Patient underwent cardioversion yesterday. Repeat echocardiogram was performed recently. He is resting comfortably in bed this morning and voices no acute complaints. He overall feels tired and reports diarrhea - Review of Systems Constitutional: denies: chills, fever, sweats, weakness Respiratory: denies: cough, shortness of breath, wheezing Cardiology: denies: chest pain, heart racing, light headedness, palpitations, passing out Gastrointestinal: reports: diarrhea. denies: abdominal pain, melena, nausea, vomitting Musculoskeletal: denies: unstable gait, neck pain - Objective Allergies/Adverse Reactions: Allergies Allergy/AdvReac Type Severity Reaction Status Date / Time hydrochlorothiazide Allergy Verified 09/22/19 05:03 Current Medications Acetaminophen (Tylenol) 650 mg PO Q4H PRN PRN Reason: Headache/Fever/Mild Pain (1-3) Hydrocodone Bitart/Acetaminophen ([place] 5/325) 1 tab PO Q4H PRN PRN Reason: Moderate Pain (4-6) Ascorbic Acid (Vitamin C) 500 mg PO DAILY [facility] Last Admin: 01/08/20 07:58 Dose: 500 mg Aspirin (Ecotrin) 81 mg PO DAILY [facility] Last Admin: 01/08/20 07:58 Dose: 81 mg Atorvastatin Calcium (Lipitor) 40 mg PO QPM [facility] Last Admin: 01/07/20 21:10 Dose: 40 mg Bisacodyl (Dulcolax) 10 mg [place] DAILYPRN PRN PRN Reason: Constipation Calcium Carbonate (Tums) 1,000 mg PO Q4H PRN PRN Reason: Heartburn or Indigestion Carvedilol (Coreg) 3.125 mg PO BID [facility] Last Admin: 01/08/20 07:58 Dose: 3.125 mg Clonidine (Catapres) 0.1 mg PO BID PRN PRN Reason: Blood Pressure Coenzyme Q10 (Coenzyme Q10) 100 mg PO QPM [facility] Last Admin: 01/07/20 21:10 Dose: 100 mg Dabigatran (Pradaxa) 150 mg PO BID [facility] Last Admin: 01/08/20 07:58 Dose: 150 mg Ezetimibe (Zetia) 10 mg PO DAILY [facility] Last Admin: 01/08/20 07:58 Dose: 10 mg Folic Acid (Folvite) 1 mg PO HS [facility] Last Admin: 01/07/20 21:11 Dose: 1 mg Guaifenesin/Dextromethorphan (Robitussin Dm) 15 ml PO Q4H PRN PRN Reason: Cough Ondansetron HCl (Zofran) 4 mg IVP Q6H PRN PRN Reason: Nausea/Vomiting Pantoprazole Sodium (Protonix) 40 mg PO DAILY [facility] Last Admin: 01/08/20 07:58 Dose: 40 mg Senna/Docusate Sodium (Senokot S) 2 tab PO BID PRN PRN Reason: Constipation Sodium Chloride (Flush - Normal Saline) 10 ml IVF Q12HR [facility] Last Admin: 01/08/20 07:59 Dose: 10 ml Sodium Chloride (Flush - Normal Saline) 10 ml IVF PRN PRN PRN Reason: Saline Flush Sucralfate (Carafate) 1 gm PO ACHS [facility] Last Admin: 01/08/20 11:22 Dose: 1 gm Tamsulosin HCl (Flomax) 0.4 mg PO HS [facility] Last Admin: 01/07/20 21:11 Dose: 0.4 mg Vital Signs & Weight: Vital Signs Temp Pulse Pulse Pulse Resp BP BP 01/08/20 15:20 97.7 F 61 18 01/08/20 11:23 97.6 F 66 18 01/08/20 09:45 60 65 132/78 150/75 H 01/08/20 07:12 97.8 F 69 18 BP BP Pulse Ox 01/08/20 15:20 158/82 H 99 01/08/20 11:23 124/62 98 01/08/20 09:45 01/08/20 07:12 155/78 H 97 Admit Weight 234 lb 9.6 oz Weight 234 lb 9.6 oz I/O: I/O 01/07/20 01/08/20 01/09/20 06:59 06:59 06:59 Intake Total 1350 Output Total 800 Balance 550 - Quality Measures Condition: Atrial Fibrillation/Flutter (hx or current) ( Pradaxa) - Physical Exam General: alert & oriented x3, appears well, no apparent distress, speech clear, affect appropriate HEENT: mucus membranes moist, normocephaly Neck: supple neck, midline trachea, no JVD/HJR, no masses, no bruit, no lymphadenopathy, no thromegaly Cardiology: regular rate and rhythm, no murmur, regular rate, regular rhythm, PMI nondisplaced Lungs: clear to auscultation, normal breath sounds, no wheeze, rales, rhonchi Neurology: cranial nerve 2-12 intact, grossly intact, no lateralizing findings Abdomen: unremarkable, active bowel sounds, no pulsations/bruits Extremities: dry, strong pulses, warm - Chadsvasc Risk factors Congestive heart failure: 1 Hypertension: 1 Age >75: 2 Risk Score: 4 - Labs Result Diagrams: 01/08/20 04:24 01/08/20 04:24 - EKG Interpretation EKG Method: Telemetry EKG shows: Sinus rhythm - Assessment/Plan Assessment/Plan: 1. Early recurrence of atrial arrhythmias following PVI on 12/17/2019. 2. Tachy-arsenio syndrome. 3. Left bundle-branch block. 4. Chronic systolic congestive heart failure with nonischemic cardiomyopathy, - previously LVEF 35% with no fluid overload. - LVEF <20% by echo this stay, possibly worsened by AF,RVR 5. History of PVCs. 6. Oral anticoagulation with Pradaxa for elevated CHADS-VASc score and post ablation. Mr. Whitmore experienced early recurrence of atrial fibrillation following his recent ablation. Unfortunately medical management options are extremely limited with him due to his underlying bradycardia. He has limited antiarrhythmic options, many of which would worsen his bradycardia. He also has cardiomyopathy and a significant left bundle branch block greater than 200 milliseconds. My recommendation is he undergo biventricular ICD implant. This would correct the bradycardia as well as the ventricular dyssynchrony. We would proceed with defibrillator implant as well to prevent re operation in the near future. We discussed the risks benefits and alternatives, including a pacemaker versus defibrillator therapies. He voices understanding and is willing to proceed. I will hold anticoagulation in anticipation of ICD implant tomorrow morning, NPO after midnight except medications in the morning with a sip of water.
--- NOTE | 2020-01-08 17:43 | EKG ---
Test Reason : Blood Pressure : / mmHG Vent. Rate : 115 BPM Atrial Rate : 107 BPM P-R Int : 000 ms QRS Dur : 158 ms QT Int : 376 ms P-R-T Axes : 000 001 205 degrees QTc Int : 520 ms Wide QRS rhythm with occasional Premature ventricular complexes Left bundle branch block Abnormal ECG When compared with ECG of 19-DEC-2019 11:50, (Unconfirmed) Wide QRS rhythm has replaced Sinus rhythm Vent. rate has increased BY [address] Bello SELBY ([id number]) on 01/08/2020 5:43:05 PM Referred By: [facility] Confirmed By:DR. Bello SELBY
[2020-01-08] MEDS: Ubidecarenone 50 MG CAP PO SCH (21:54)
[2020-01-08] MEDS: Tamsulosin HCl 0.4 MG CAP PO SCH (21:55)
[2020-01-08] MEDS: Atorvastatin Calcium 40 MG TAB PO SCH (21:56)
[2020-01-08] MEDS: Folic Acid 1 MG TAB PO SCH (21:56)
[2020-01-09 04:40] LABS: #Eosinphils 0.3 thou/uL (0.0-0.7); #Lymphocytes 1.7 thou/uL (1.20-3.40); #Monocytes 0.5 thou/uL (0.11-0.59); #Neutrophils 3.4 thou/uL (1.40-6.50); %Basophils 0.3 % (0.0-1.0); %Eosinophils 4.3 % (0.0-10.0); %Lymphocytes 29.3 % (21.0-51.0); %Monocytes 7.7 % (0.0-10.0); %Neutrophils 58.4 % (42.0-75.0); Hemoglobin 12.9 g/dL (14.0-18.0); Mean Corpuscular HGB CONC 33.3 g/dL (32.0-36.0); Mean Corpuscular Hemoglobin 31.3 pg (27.0-31.0); Mean Corpuscular Volume 93.8 fL (78.0-98.0); Mean Platelet Volume 7.7 fL (7.4-10.4); Platelet Count 128 thou/uL (130-400); RBC Distribution Width 12.2 % (11.5-14.5); Red Blood Cell (RBC) Count 4.12 mill/uL (4.70-6.10); White Blood Cell (WBC) Count 5.8 thou/uL (4.8-10.8)
[2020-01-09 05:20] LABS: ALT (SGPT) 17 U/L (8-55); AST (SGOT) 18 U/L (5-34); Albumin 3.6 g/dL (3.4-4.8); Alkaline Phosphatase 82 U/L (40-110); Anion Gap 12 mmol/L (10-20); BUN (Urea Nitrogen) 10 mg/dL (8.4-25.7); Bilirubin, Total 1.2 mg/dL (0.2-1.2); Calc. Creatinine Clearance 113 mL/min (70-130); Calcium 8.7 mg/dL (7.8-10.44); Carbon Dioxide 23 mmol/L (23-31); Chloride 106 mmol/L (98-107); Estimated GFR-MDRD Greater than 90; Globulin 2.3 g/dL (2.4-3.5); Glucose 101 mg/dL (83-110); Potassium 3.8 mmol/L (3.5-5.1); Protein, Total 5.9 g/dL (5.8-8.1); Sodium 137 mmol/L (136-145)
[2020-01-09] MEDS: Aspirin 81 mg Enteric Coated Tablet PO SCH (06:16)
[2020-01-09] MEDS: Carvedilol 3.125 MG TAB PO SCH (06:16)
[2020-01-09] MEDS ORDERED: Midazolam HCl 2 mg/2 ml Vial ONE (07:20)
[2020-01-09] MEDS ORDERED: Fentanyl 100 MCG/2 ML VIAL ONE (07:20)
[2020-01-09] MEDS ORDERED: Propofol 500 MG/50 ML VIAL ONE ×2 (07:29→08:43)
[2020-01-09] MEDS ORDERED: CEFAZOLIN 1 GM VIAL ONE (07:43)
[2020-01-09] MEDS ORDERED: Gentamicin 80 MG/2 ML VIAL ONE (07:43)
--- NOTE | 2020-01-09 08:32 | EKG ---
Test Reason : Blood Pressure : / mmHG Vent. Rate : 065 BPM Atrial Rate : 065 BPM P-R Int : 160 ms QRS Dur : 130 ms QT Int : 432 ms P-R-T Axes : -17 -11 169 degrees QTc Int : 449 ms Sinus rhythm with Premature atrial complexes Left bundle branch block Abnormal ECG When compared with ECG of 07-JAN-2020 08:10, (Unconfirmed) Sinus rhythm has replaced Wide QRS rhythm Vent. rate has decreased BY [address] Bello SELBY ([id number]) on 01/09/2020 8:32:36 AM Referred By: [facility] Confirmed By:DR. Bello SELBY
[2020-01-09] MEDS ORDERED: Adenosine 6 MG/2 ML VIAL ONE (08:43)
[2020-01-09] MEDS ORDERED: PHENYLEPHRINE-NS 100 MCG/ML 10 ML SYRINGE ONE ×2 (09:55→10:46)
[2020-01-09] MEDS ORDERED: Iopamidol 370 76% 50 ML VIAL FS ONE (10:01)
--- NOTE | 2020-01-09 10:08 | RAD ---
EXAM: Single view of the chest HISTORY: Pacemaker placement COMPARISON: 12/16/2019 FINDINGS: Single view of the chest shows an enlarged but stable cardiomediastinal silhouette. The pa tient is status post sternotomy. A triple lead pacemaker is seen with its leads in the right atrium, right ventricle, and coronary sinus. No pneumothorax is seen. There is no evidence of consol idation, mass, or pleural effusion. The bones are unremarkable. IMPRESSION: Status post pacemaker placement without evidence of complication.
[2020-01-09] MEDS ORDERED: PROPOFOL 200 MG/20 ML VIAL ONE (10:46)
[2020-01-09] MEDS ORDERED: EPHEDRINE 25 MG/5 ML SYRINGE ONE (10:46)
[2020-01-09] MEDS ORDERED: Acetaminophen/Codeine 30-300mg Tablet PO PRN ×2 (11:01→11:02)
[2020-01-09] MEDS: Sucralfate 1 GM TAB PO SCH ×2 (12:17→12:18)
[2020-01-09] MEDS: Ezetimibe 10 MG TAB PO SCH (12:18)
[2020-01-09] MEDS: Ascorbic Acid 500 mg Chewable Tablet PO SCH (12:19)
[2020-01-09] MEDS ORDERED: Cephalexin 250 MG CAP PO SCH (14:00)
--- NOTE | 2020-01-09 14:05 | DIS ---
DATE OF ADMISSION: 01/07/2020 DATE OF DISCHARGE: 01/09/2020 DISCHARGE DISPOSITION: Home. FOLLOWUP: 1. Follow up with primary care physician, Dr. Gee Matias, in 1 week. 2. Follow up with Electrophysiology, Dr. Moss, and Cardiology as scheduled. The patient was advised to restart Pradaxa tomorrow. The patient was seen on the day of discharge. Denies any new complaints. No chest pain, shortness of breath, or palpitations reported. INPATIENT PROCESS IMPROVEMENT ENGINEER: Electrophysiology, Dr. Moss. DISCHARGE MEDICATIONS: 1. Same as admission medications. 2. The patient was advised to resume Pradaxa tomorrow evening. BRIEF HOSPITAL COURSE: The patient is a 79-year-old male, who underwent ablation for atrial flutter earlier this month, presented to the hospital with tachyarrhythmia. His workup was consistent with atrial tachycardia. He underwent cardioversion. Post cardioversion, the patient remained in bradycardia requiring dual-chamber pacemaker placement. Repeat echocardiogram this admission showed ejection fraction approximately 20% with [id number] aortic stenosis, [id number] tricuspid regurgitation, and mild pulmonary regurgitation. He has been cleared by Electrophysiology for discharge. FINAL DIAGNOSES: 1. Atrial tachycardia, status post cardioversion with transient bradycardia requiring temporary pacing. 2. Tachy-arsenio syndrome, status post dual-chamber pacemaker placement this admission. Operative report pending at the time of discharge. 3. Diarrhea, resolved. 4. Chronic systolic heart failure. 5. Coronary artery disease, status post coronary artery bypass grafting. 6. Aortic stenosis. 7. Hypertension. 8. Obesity with a body mass index of 30.1. 9. Benign prostatic hypertrophy. 10. History of premature ventricular contractions. 11. Chronic anticoagulation. 12. Left bundle-branch block. The patient understands the above plan of care. Job ID: [id number]
[2020-01-09 15:49] VITALS: BP 135/71; TEMP 97.4
== END 2020-01-09 16:08 | disposition home or self-care (01) ==
LOC: 2NO 05:58
PROVIDERS: ADMIT Internal Medicine; ATTEND Internal Medicine
PROC: 5A2204Z Restoration of Cardiac Rhythm, Single (ICD-10-PCS; principal; 2020-01-07)
DX: I47.1 Supraventricular tachycardia (principal); I48.19 Other persistent atrial fibrillation; I42.8 Other cardiomyopathies; I11.0 Hypertensive heart disease with heart failure; I50.22 Chronic systolic (congestive) heart failure; I44.7 Left bundle-branch block, unspecified; I25.10 Atherosclerotic heart disease of native coronary artery without angina pectoris; I49.5 Sick sinus syndrome; N40.0 Benign prostatic hyperplasia without lower urinary tract symptoms; E66.9 Obesity, unspecified; Z68.30 Body mass index [BMI] 30.0-30.9, adult; Z79.82 Long term (current) use of aspirin; Z79.899 Other long term (current) drug therapy; Z88.8 Allergy status to other drugs, medicaments and biological substances
CPT/HCPCS: 33225; 33249; 36005; 36415; 71045; 75820; 76942; 80048; 80053; 83735; 84439; 84443; 85025; 85027; 87045; 87046; 87324; 87328; 87329; 87427; 87449; 92960; 93005; 93010; 93306; C1777; C1882; C1898; C1900; G0378; J0153; J0690; J1580; J2001; J2250; J2704; J3010; Q9967

== ENCOUNTER 2025-01-13 19:12 | Emergency (ER) | payer MEDICARE ==
[2025-01-13 19:36] LABS: #Basophils 0.04 10x3/uL (0.0-0.2); #Eosinophils 0.15 10x3/uL (0.0-0.7); #Monocytes 0.72 10x3/uL (0.11-0.59); #Neutrophils 6.06 10x3/uL (1.40-6.50); %Basophils 0.5 % (0.0-1.0); %Eosinophils 1.8 % (0.0-10.0); %Lymphocytes 17.1 % (21.0-51.0); %Monocytes 8.5 % (0.0-10.0); %Neutrophils 71.7 % (42.0-75.0); Hematocrit 36.0 % (42.0-52.0); Hemoglobin 12.1 g/dL (14.0-18.0); Mean Corpuscular Hemoglobin 31.5 pg (27.0-31.0); Mean Corpuscular Volume 93.8 fL (78.0-98.0); Platelet Count 144 10x3/uL (130-400); Red Blood Cell (RBC) Count 3.84 mill/uL (4.70-6.10); White Blood Cell (WBC) Count 8.44 10x3/uL (4.8-10.8)
[2025-01-13] MEDS ORDERED: CALCIUM GLUC 1 GM/NS 50 ML IV Bag ONE (19:47)
[2025-01-13 19:55] LABS: INR-International Normal Ratio 1.4; PTT 37.8 sec (22.9-36.1); Prothrombin Time 17.7 sec (12.0-14.7)
[2025-01-13 20:03] LABS: ALT (SGPT) 16 U/L (Less than 45); AST (SGOT) 23 U/L (11-34); Albumin 3.8 g/dL (3.1-4.5); Alkaline Phosphatase 72 U/L (40-110); Anion Gap 17 mmol/L (10-20); BUN (Urea Nitrogen) 40 mg/dL (8.4-25.7); Bilirubin, Total 0.8 mg/dL (0.3-1.2); Calc. Creatinine Clearance 0 mL/min (70-130); Calcium 9.0 mg/dL (7.8-10.44); Carbon Dioxide 22 mmol/L (23-31); Chloride 107 mmol/L (98-107); Globulin 2.9 g/dL (2.4-3.5); Glucose 128 mg/dL (83-110); Potassium 5.6 mmol/L (3.5-5.1); Sodium 140 mmol/L (136-145)
[2025-01-13 20:08] LABS: Troponin I 0.020 ng/mL (< 0.028)
== END 2025-01-13 23:20 | disposition short-term general hospital (02) ==
LOC: ERS 19:12
DX: T82.199A Other mechanical complication of unspecified cardiac device, initial encounter (principal); N17.9 Acute kidney failure, unspecified; E87.5 Hyperkalemia; I11.0 Hypertensive heart disease with heart failure; I50.9 Heart failure, unspecified; I25.10 Atherosclerotic heart disease of native coronary artery without angina pectoris; E78.5 Hyperlipidemia, unspecified; I48.92 Unspecified atrial flutter
CPT/HCPCS: 71045; 80053; 83880; 84484; 85025; 85610; 85730; 86850; 86870; 86900; 86901; 93005; J0613; 96361; 96374